=== PATIENT | male | born 1950 | race Caucasian/White ===

== ENCOUNTER → 2018-01-16 | Outpatient (CLI) | payer MEDICARE ==
--- NOTE | 2018-01-16 10:28 | Diagnostic Imaging Report ---
PROCEDURE:US RETROPERITONEAL ( KIDNEY ). COMPARISON:None. INDICATIONS:Asymptomatic Microscopic Hematuria TECHNIQUE: Gomez-scale and color sonographic images of the bilateral kidneys and bladder where obtained in transverse and longitudinal planes. FINDINGS: RIGHT KIDNEY: 13 cm in length, cortical thickness 2 cm. Cysts: 1.1 x 1.2 x 1.3 cm simple cyst in the lower pole. Solid masses: None Stones: None Hydronephrosis: None Echogenicity: Normal renal cortical echogenicity. LEFT KIDNEY: 13.2 cm in length, cortical thickness 2.2 cm. Cysts: None Solid masses: None Stones: Questionable echogenic calculus measuring 7 mm in the left interpolar collecting system. Hydronephrosis: None Echogenicity: Normal renal cortical echogenicity. Bladder: Unremarkable in sonographic appearance. Bilateral ureteral jets are identified. Prostate: 2.4 x 1.6 x 3.1 cm, estimated volume 6.3 cc CONCLUSION: Questionable echogenic calculus in the left renal collecting system without hydronephrosis. This may be further evaluated by CT scan of the abdomen and pelvis without contrast (renal stone protocol). Dictated by: Rashel Kurtz M.D. on 01/16/2018 at 10:28 Electronically approved by: Rashel Kurtz M.D. on 01/16/2018 at 10:28
== END ==
LOC: US 07:27
PROVIDERS: ATTEND Urology
DX: R31.9 Hematuria, unspecified (principal)
CPT/HCPCS: 76770

== ENCOUNTER → 2018-01-30 | Outpatient (CLI) | payer MEDICARE ==
[~2018-01-30] MED LIST: ALPRAZOLAM0.5 MG PO; AMIODARONE HCL200 MG PO; CEFUROXIME500 MG PO; CENTRUM SPECIA1 EACH PO; COLACE100 MG PO; FISH OIL 1,0001 EAC2 PO; FUROSEMIDE40 MG PO; HUMALOG100 UNIT/1 SC; LACTULOSE20 GM/30 M PO; LANTUS 3ML100 UNITS/ SC; LOSARTAN POTASS25 MG PO; MELATONIN5 M2 PO; MELOXICAM7.5 MG PO; METFORMIN HCL500 MG PO; METOPROLOL TART25 MG PO; OMEGA 3 FISH O1 EACH PO; OXYBUTYNIN CHLOR5 MG PO; PEPCID20 MG PO; PRAVASTATIN SOD20 MG PO; SODIUM BICARBO650 MG PO; SULFAMETHOXAZO1 EAC1 PO; TYLENOL WITH C1 EACH PO; VITAMIN B-121000 MCG PO; XARELTO10 MG PO; ZYRTEC10 M3 PO
--- NOTE | 2018-01-30 08:35 | Diagnostic Imaging Report ---
PROCEDURE:ABDOMEN-1VIEW (KUB) TECHNIQUE:Supine AP abdomen: 2 radiographs INDICATION:Microscopic hematuria COMPARISON:None. FINDINGS: No irregular calcifications. Normal bowel gas pattern. No evidence of organomegaly or ascites. Intact skeleton. CONCLUSION: No conspicuous etiology for microscopic hematuria. Dictated by: Harry Morales M.D. on 01/30/2018 at 8:36 Electronically approved by: Harry Morales M.D. on 01/30/2018 at 8:36
== END ==
LOC: RAD 07:10
PROVIDERS: ATTEND Urology
DX: R31.9 Hematuria, unspecified (principal)
CPT/HCPCS: 74018

== ENCOUNTER 2018-03-03 10:48 | Inpatient (IN) | payer MEDICARE ==
[~2018-03-03] VITALS: Ht 182.9 cm; Wt 121.2 kg
--- OUTSIDE RECORDS SUMMARY | 2018-03-03 10:51 | XMS REPORT ---
Author Author [facility] Address Unknown Phone Unavailable Care Team Providers Care Pecan Gatherer Name Role Phone HAYLIE SHEPHERD Unavailable Unavailable YUN SHEPHERD Unavailable Unavailable Problems This patient has no known problems. Allergies, Adverse Reactions, Alerts This patient has no known allergies or adverse reactions. Medications This patient has no known medications. Results Test Description Test Time Test Comments Text Results Atomic Results Result Comments ABDOMEN-1VIEW (KUB) [place] [address] Patient Name: DUSTIN GAUTHIER MR #: [id number] : 1950 Age/Sex: 67/M Req # : [id number] Adm Physician: Ordered by: HAYLIE SHEPHERD MD Report #: [id number] Location: [facility] Room/Bed: Procedure: [id number] DX/ABDOMEN-1VIEW (KUB) Exam Date: 01/30/18 Exam Time : 0730 REPORT STATUS: Signed PROCEDURE: ABDOMEN-1VIEW (KUB) TECHNIQUE: Supine AP abdomen: 2 radiographs INDICATION: Microscopic hematuria COMPARISON: None. FINDINGS: No irregular calcifications. Normal bowel gas pattern. No evidence of organomegaly or ascites. Intact skeleton. CONCLUSION: No conspicuous etiology for microscopic hematuria. Dictated by: Missy Morales M.D. on 01/30/2018 at 8:36 Electronically approved by: Missy Morales M.D. on 01/30/2018 at 8:36 Dictated By: MISSY MORALES MD 5 Transcribed By: SHAKIR on 01/30/18835 COPY TO: HAYLIE SHEPHERD MD US RENAL RETROPERITONEAL COMP [place] [address] Patient Name: DUSTIN GAUTHIER MR #: [id number] : 1950 Age/Sex: 67/M Req #: [id number] Adm Physician: Ordered by: YUN SHEPHERD MD Report #: [id number] Location: US Room/Bed: Procedure: [id number] US/US RENAL RETROPERITONEAL COMP Exam Date: Exam Time: REPORT STATUS: Signed PROCEDURE: US RETROPERITONEAL ( KIDNEY ). COMPARISON: None. INDICATIONS: Asymptomatic Microscopic Hematuria TECHNIQUE: Gomez-scale and color sonographic images of the bilateral kidneys and bladder where obtained in transverse and longitudinal planes. FINDINGS: RIGHT KIDNEY: 13 cm in length, cortical thickness 2 cm. Cysts: 1.1 x 1.2 x 1.3 cm simple cyst in the lower pole. Solid masses: None Stones: None Hydronephrosis: None Echogenicity : Normal renal cortical echogenicity. LEFT KIDNEY: 13.2 cm in length, cortical thickness 2.2 cm. Cysts: None Solid masses: None Stones: Questionable echogenic calculus measuring 7 mm in the left interpolar collecting system. Hydronephrosis: None Echogenicity: Normal renal cortical echogenicity. Bladder: Unremarkable in sonographic appearance. Bilateral ureteral jets are identified. Prostate: 2.4 x 1.6 x 3.1 cm, estimated volume 6.3 cc CONCLUSION: Questionable echogenic calculus in the left renal collecting system without hydronephrosis. This may be further evaluated by CT scan of the abdomen and pelvis without contrast (renal stone protocol). Dictated by: Donte Jeffery M.D. on 01/16/2018 at 10:28 Electronically approved by: Donte Jeffery M.D. on 01/16/2018 at 10:28 Dictated By: DONTE JEFFERY MD 1028 Transcribed By: SHAKIR on 01/16/18 1028 COPY TO: YUN SHEPHERD MD
[2018-03-03] MEDS ORDERED: LIDOCAINE JELLY 2% 10ML URO-JET TOP ONE (12:00)
[2018-03-03 13:23] LABS: BASOPHILS # (AUTO) 0.1 (0.0-0.1); BASOPHILS % 0.4 % (0.0-1.0); EOSINOPHILS # (AUTO) 0.2 (0.0-0.4); EOSINOPHILS % 1.7 % (0.0-6.0); HEMATOCRIT 30.9 % (38.2-49.6); HEMOGLOBIN 10.6 g/dL (14.0-18.0); LYMPHOCYTES # (AUTO) 1.4 (1.0-3.2); MEAN CORPUSCULAR HEMOGLOBIN 28.4 pg (28-32); MEAN CORPUSCULAR HGB CONC 34.3 g/dL (31-35); MEAN CORPUSCULAR VOLUME 82.8 fL (81-99); MONOCYTES # (AUTO) 1.5 (0.2-0.8); MONOCYTES % 11.6 % (4.4-11.3); NEUTROPHILS # (AUTO) 9.3 (2.1-6.9); NEUTROPHILS % 74.7 % (38.7-80.0); PLATELET COUNT 287 x10e3/uL (140-360); RED BLOOD COUNT 3.73 x10e6/uL (4.3-5.7); RED CELL DISTRIBUTION WIDTH 13.2 % (11.7-14.4)
[2018-03-03 13:33] LABS: INR 1.43; PROTHROMBIN TIME 16.4 seconds (11.9-14.5)
[2018-03-03 13:34] LABS: PARTIAL THROMBOPLASTIN TIME 37.1 seconds (23.8-35.5)
[2018-03-03 13:37] LABS: CLARITY,URINE OTHER (CLEAR); COLOR,URINE RED (YELLOW); LEUKOCYTE ESTERASE ,URINE NEGATIVE (NEGATIVE); NITRITE,URINE NEGATIVE (NEGATIVE); PROTEIN,URINE DIPSTICK 3+ (NEGATIVE)
[2018-03-03 13:38] LABS: BILIRUBIN,URINE NEGATIVE (NEGATIVE); KETONES,URINE NEGATIVE (NEGATIVE); RBC,URINE >50 /HPF (0-5); URINE UROBILINOGEN 0.2 mg/dL (0.2 - 1); WBC,URINE (MAN) 0-5 /HPF (0-5)
[2018-03-03 13:43] LABS: ALBUMIN 3.1 g/dL (3.5-5.0); ALBUMIN/GLOBULIN RATIO 0.8 (0.8-2.0); ANION GAP 29.9 mmol/L (8-16); CALCIUM 8.3 mg/dL (8.4-10.2); CREATININE, SERUM 19.09 mg/dL (0.72-1.25); POTASSIUM 7.9 mmol/L (3.5-5.1)
[2018-03-03] MEDS ORDERED: DEXTROSE 50% SYRINGE 50 ML IV ONE (14:19)
[2018-03-03] MEDS ORDERED: SODIUM CHLORIDE 0.9% 1000ML 1,000 ML IV SCH (14:30)
--- NOTE | 2018-03-03 14:43 | Diagnostic Imaging Report ---
EXAM: XR CHEST 2 VIEWS DATE: 03/03/2018 1:54 PM INDICATION: Shortness of breath, cough COMPARISON: None FINDINGS: Lines and Tubes: None Heart and Mediastinum: Accentuated by low lung volumes. Sternotomy wires. Lungs and Pleura: Patchy opacities lung bases. Bones and Soft Tissues: No acute findings. IMPRESSION: 1. Patchy basilar opacities could represent atelectasis, edema, or infectious process. Signed by: Dr. Gilbert Quintana MD on 03/03/2018 2:39 PM
[2018-03-03 14:46] LABS: ANION GAP 30.3 mmol/L (8-16); CALCIUM 8.2 mg/dL (8.4-10.2); CREATININE, SERUM 19.21 mg/dL (0.72-1.25)
[2018-03-03 14:49] LABS: POTASSIUM 8.3 mmol/L (3.5-5.1)
[2018-03-03] MEDS ORDERED: SODIUM BICARBONATE 8.4% INJ 50 ML SYR IV ONE ×2 (14:50→15:08)
[2018-03-03] MEDS ORDERED: SODIUM CHLORIDE 0.9% IV ONE ×2 (15:00→15:15)
[2018-03-03] MEDS ORDERED: SOD POLYSTYRENE SULFONATE SUSP 15 GM/60 ML BTL PO ONE (15:00)
[2018-03-03] MEDS ORDERED: CALCIUM GLUCONATE IV ONE (15:00)
[2018-03-03] MEDS ORDERED: INSULIN REGULAR, HUMAN 100 UNIT/1 ML 3ML VIAL IV ONE (15:00)
[2018-03-03] MEDS ORDERED: FUROSEMIDE INJ 10 MG/ML 10 ML VIAL IV ONE (15:15)
[2018-03-03] MEDS ORDERED: CALCIUM CHLORIDE IV ONE (15:15)
[2018-03-03] MEDS ORDERED: HEPARIN SOD (PORCINE) 1000 UNIT/ML SDV ONE ×2 (15:24→15:34)
[2018-03-03] MEDS ORDERED: SODIUM CHLORIDE 0.9% 1000ML 2,000 ML ONE (15:31)
[2018-03-03] MEDS ORDERED: FUROSEMIDE INJ 10 MG/ML 4 ML VIAL ONE (15:34)
[2018-03-03] MEDS ORDERED: FUROSEMIDE INJ 10 MG/ML 2 ML VIAL ONE (15:34)
[2018-03-03] MEDS ORDERED: LIDOCAINE HCL 1% LOCAL INJ 20 ML VIAL ONE (15:36)
[2018-03-03] MEDS ORDERED: MANNITOL 25% 12.5GM/50 ML VIAL IV ONE ×2 (16:45)
[2018-03-03] MEDS ORDERED: DEXTROSE 50% SYRINGE 50 ML IV PRN ×2 (17:30→18:15)
[2018-03-03] MEDS ORDERED: CEFTRIAXONE SOD 1 GM VIAL IM ONE (18:15)
[2018-03-03] MEDS: ALBUTEROL/IPRATROPIUM 3 ML NEB NEB SCH (19:00)
[2018-03-03] MEDS ORDERED: HEPARIN SOD (PORCINE) 1000 UNIT/ML 10ML MDV IV PRN (19:45)
[2018-03-03] MEDS ORDERED: HEPARIN SOD (PORCINE) 1000 UNIT/ML SDV IV ONE (20:00)
[2018-03-03] MEDS ORDERED: HEPARIN SOD (PORCINE) 1000 UNIT/ML SDV IV PRN (20:00)
[2018-03-03] MEDS ORDERED: CEFTRIAXONE SOD 1 GM VIAL IV ONE (20:45)
[2018-03-03] MEDS: DOXYCYCLINE HYCLATE TABLET 100 MG TAB PO SCH (20:56)
[2018-03-03] MEDS: INSULIN LISPRO 100 UNIT/1 ML 3ML VIAL SQ SCH (20:57)
--- NOTE | 2018-03-03 21:04 | Diagnostic Imaging Report ---
EXAM: Renal Ultrasound INDICATION: Bleeding from bladder, unable to urinate, remote history of prostate cancer and radiation COMPARISON: None TECHNIQUE: Transverse and longitudinal sonographic images of the kidneys and bladder were obtained. FINDINGS: RIGHT KIDNEY: 12.9 x 6.4 x 6.8 cm, normal cortical thickness. Echogenicity: Normal Hydronephrosis: None Calculi: None Cyst/Mass: Simple cyst measuring 2. 2 x 2 x 2.4 cm in the inferior pole LEFT KIDNEY: 13.8 x 7.6 x 6.7 cm, normal cortical thickness. Echogenicity: Normal Hydronephrosis: None Calculi: None Cyst/Mass: None BLADDER: The bladder is partially decompressed by Xiong catheter. There is heterogeneous avascular debris within the bladder, new from prior exam. IMPRESSION: 1. Normal sonographic appearance of the kidneys. 2. Heterogeneous avascular debris within the bladder most likely represents a blood clot. Follow-up ultrasound versus direct visualization is recommended to exclude underlying mass. Signed by: Dr. Monika Baez M.D. on 03/03/2018 9:01 PM
[2018-03-03 21:49] LABS: BASOPHILS # (AUTO) 0.1 (0.0-0.1); BASOPHILS % 0.6 % (0.0-1.0); EOSINOPHILS # (AUTO) 0.6 (0.0-0.4); EOSINOPHILS % 5.5 % (0.0-6.0); LYMPHOCYTES # (AUTO) 1.3 (1.0-3.2); LYMPHOCYTES % 12.4 % (18.0-39.1); MEAN CORPUSCULAR HEMOGLOBIN 27.9 pg (28-32); MEAN CORPUSCULAR HGB CONC 34.5 g/dL (31-35); MONOCYTES # (AUTO) 1.2 (0.2-0.8); MONOCYTES % 11.2 % (4.4-11.3); NEUTROPHILS # (AUTO) 7.3 (2.1-6.9); NEUTROPHILS % 69.9 % (38.7-80.0); PLATELET COUNT 266 x10e3/uL (140-360); RED BLOOD COUNT 3.58 x10e6/uL (4.3-5.7)
[2018-03-03 22:09] LABS: ALBUMIN 2.8 g/dL (3.5-5.0); ALBUMIN/GLOBULIN RATIO 0.8 (0.8-2.0); ANION GAP 25.5 mmol/L (8-16); CALCIUM 8.4 mg/dL (8.4-10.2); CREATININE, SERUM 13.72 mg/dL (0.72-1.25); POTASSIUM 4.5 mmol/L (3.5-5.1)
--- NOTE | 2018-03-03 23:44 | History and Physical ---
DATE OF CONSULTATION: March 03, 2018 PATIENT OF: Dr. Ankita Johnston, Dr. Rasmussen, Dr. Zapata, Dr. Reid Parker. 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 He has been followed by Dr. Rasmussen. He has been anuric for [address] Rasmussen this morning and was directed to the emergency room. He was found to be severely azotemic. A Xiong catheter was placed, clots were found in the bladder. He is essentially anuric. He has history of bypass surgery in the past, history of smoking, quit 15 years ago. 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 He is sedentary. MEDICATIONS: Include, 1. Lantus 20 mg. 2. Humalog insulin 4 injections a day. 3. Losartan 50. 4. Pravachol 20. 5. Metoprolol 25. 6. Meloxicam. 7. Pepcid. 8. Fish oil. 9. Aspirin. He told that he needed a prosthetic valve and possibly another coronary artery bypass. He is sedentary. PHYSICAL EXAMINATION VITAL SIGNS: Temperature 98.7, pulse 91, respirations 18, blood pressure 122/66. HEENT: Head is normocephalic, atraumatic. Eyes, extraocular movement intact. LUNGS: Clear. HEART: Regular rhythm. ABDOMEN: Nontender. EXTREMITIES: Trace edema. He was examined supine. He needs dialysis, ultrasound, cardiology opinion, opinion. Chest x-ray reveals sternal wires and a right lower lobe infiltrate. Potassium is critical at 8.3, bicarb is 13, BUN 120, creatinine 19.2. Calcium 10.8. White count is elevated. ASSESSMENT: Acute renal failure, possibly related to obstructive uropathy. PLAN: Ultrasound. Emergency dialysis. Consider empiric antibiotic in view of pulmonary infiltrates and elevated white count. Job#: [id number] [employer]
[2018-03-04] MEDS: ALBUTEROL/IPRATROPIUM 3 ML NEB NEB SCH ×4 (00:30→19:00)
[2018-03-04] MEDS ORDERED: SOD POLYSTYRENE SULFONATE SUSP 15 GM/60 ML BTL PO ONE (02:45)
[2018-03-04 06:56] LABS: BASOPHILS % 0.3 % (0.0-1.0); EOSINOPHILS # (AUTO) 0.5 (0.0-0.4); EOSINOPHILS % 5.1 % (0.0-6.0); HEMATOCRIT 27.4 % (38.2-49.6); HEMOGLOBIN 9.5 g/dL (14.0-18.0); LYMPHOCYTES # (AUTO) 0.8 (1.0-3.2); LYMPHOCYTES % 8.3 % (18.0-39.1); MEAN CORPUSCULAR HEMOGLOBIN 28.2 pg (28-32); MEAN CORPUSCULAR HGB CONC 34.7 g/dL (31-35); MEAN CORPUSCULAR VOLUME 81.3 fL (81-99); MONOCYTES % 10.5 % (4.4-11.3); NEUTROPHILS # (AUTO) 7.2 (2.1-6.9); NEUTROPHILS % 75.4 % (38.7-80.0); PLATELET COUNT 263 x10e3/uL (140-360); RED BLOOD COUNT 3.37 x10e6/uL (4.3-5.7); RED CELL DISTRIBUTION WIDTH 13.1 % (11.7-14.4)
[2018-03-04 07:16] LABS: ALBUMIN 2.7 g/dL (3.5-5.0); ALBUMIN/GLOBULIN RATIO 0.8 (0.8-2.0); CALCIUM 8.4 mg/dL (8.4-10.2); CREATININE, SERUM 15.68 mg/dL (0.72-1.25); MAGNESIUM 1.7 MG/DL (1.3-2.1); PHOSPHORUS 9.7 MG/DL (2.3-4.7)
[2018-03-04 07:26] LABS: INR 1.37; PARTIAL THROMBOPLASTIN TIME 35.5 seconds (23.8-35.5); PROTHROMBIN TIME 15.9 seconds (11.9-14.5)
[2018-03-04] MEDS: INSULIN LISPRO 100 UNIT/1 ML 3ML VIAL SQ SCH ×4 (08:00→21:00)
--- NOTE | 2018-03-04 09:46 | Diagnostic Imaging Report ---
PROCEDURE: CT ABDOMEN AND PELVIS WITHOUT CONTRAST TECHNIQUE: The abdomen and pelvis were scanned utilizing a multidetector helical scanner from the diaphragm to the lesser trochanter. No oral or intravenous contrast was administered per referring physician request. Coronal and sagittal multiplanar reformations were obtained. COMPARISON: Renal ultrasound 2017. INDICATIONS: HEMATURIA, PROSTATE CANCER, ACUTE RENAL FAILURE FINDINGS: ABSENCE OF INTRAVENOUS CONTRAST DECREASES SENSITIVITY FOR DETECTION OF FOCAL LESIONS AND VASCULAR PATHOLOGY. LOWER THORAX: Right anterior basal prominent extrapleural fat. Linear and reticular opacity in the dependent lower lobes compatible with atelectasis. Sternotomy wires partially visualized. No paracardial effusion.. HEPATOBILIARY: No focal hepatic lesion or intrahepatic biliary ductal dilatation. Multiple small radiopaque calculi within the dependent gallbladder. SPLEEN: No splenomegaly. PANCREAS: No focal masses or ductal dilatation. ADRENALS: 1.9 cm left adrenal nodule has average internal attenuation 0-5 Hounsfield units compatible with a lipid rich adenoma. No right adrenal nodule. KIDNEYS/URETERS: Mild bilateral hydronephrosis and hydroureter. 5 mm calculus in the distal right ureter seen on series 3 image 151. No left renal or ureteral calculus. Bilateral perinephric fat stranding. Right upper pole renal cyst, average internal attenuation 15-20 Hounsfield units. Exophytic subcentimeter hypoattenuating lesion projecting from the lower pole of the right kidney is too small to further characterize but likely represents an additional small cyst. Lobulated bilateral renal contours may be congenital or related to prior infectious or inflammatory insult. PELVIC ORGANS/BLADDER: Xiong catheter within the urinary bladder. The urinary bladder lumen is diffusely filled with hyperattenuating material (50-60 Hounsfield units), along with foci of gas in the nondependent portion. Mild perivesicular inflammation. PERITONEUM / RETROPERITONEUM: No ascites. No pneumoperitoneum. LYMPH NODES: No pelvic sidewall, retroperitoneal, or mesenteric lymphadenopathy. VESSELS: Limited evaluation without intravenous contrast. The abdominal aorta is non-aneurysmal. Scattered atherosclerotic calcifications. Right femoral central venous catheter tip terminates in the external iliac vein. GI TRACT: The large bowel is notable for innumerable sigmoid and descending colon diverticula without wall thickening or adjacent inflammatory change. The appendix is normal. No small bowel dilatation to suggest obstruction. Small diverticulum projects from the second portion of the duodenum. BONES AND SOFT TISSUES: No focal soft tissue abnormalities. Partially visualized median sternotomy wires. No osseous destructive lesions. IMPRESSION: Large amount of hyperdense material within the urinary bladder likely represents blood clot in the setting of gross hematuria. Correlate for recent instrumentation, and direct visualization may be of benefit. Xiong catheter is appropriately positioned. Mild bilateral hydroureteronephrosis with a 5 mm distal right ureteral calculus. Benign left adrenal lipid rich adenoma. Cholelithiasis without pericholecystic inflammation. Large bowel diverticulosis without findings of acute diverticulitis. Dictated by: Rashel Kurtz M.D. on 03/04/2018 at 9:48 Electronically approved by: Rashel Kurtz M.D. on 03/04/2018 at 9:48
[2018-03-04] MEDS: DOXYCYCLINE HYCLATE TABLET 100 MG TAB PO SCH ×2 (09:58→16:58)
[2018-03-04] MEDS ORDERED: FISH OIL 1,0001 EAC2 PO (11:04)
[2018-03-04] MEDS ORDERED: LOSARTAN POTASS25 MG PO (11:04)
[2018-03-04] MEDS ORDERED: ZYRTEC10 M3 PO (11:04)
[2018-03-04] MEDS ORDERED: MELOXICAM7.5 MG PO (11:04)
[2018-03-04] MEDS ORDERED: METOPROLOL TART25 MG PO (11:04)
[2018-03-04] MEDS ORDERED: OMEGA 3 FISH O1 EACH PO (11:04)
[2018-03-04] MEDS ORDERED: METFORMIN HCL500 MG PO (11:04)
[2018-03-04] MEDS ORDERED: VITAMIN B-121000 MCG PO (11:04)
[2018-03-04] MEDS ORDERED: PEPCID20 MG PO (11:04)
[2018-03-04] MEDS ORDERED: LANTUS 3ML100 UNITS/ SC (11:04)
[2018-03-04] MEDS ORDERED: PRAVASTATIN SOD20 MG PO (11:04)
[2018-03-04] MEDS ORDERED: HUMALOG100 UNIT/1 SC (11:04)
--- NOTE | 2018-03-04 13:21 | Consultation ---
DATE OF CONSULTATION: March 04, 2018 CARDIOLOGY CONSULTATION ATTENDING PHYSICIAN: Dr. Rashel Freitas Mr. Antunez is a pleasant, 67-year-old man known to our service for many years. Followed by Dr. Parker with problems with coronary disease and aortic stenosis. CHIEF COMPLAINT: He presents to emergency room on the with a complaint of hematuria and anuria. He reports that he has not urinated in 3 days. PAST MEDICAL HISTORY: Significant for prostate surgery in 2003 treated with proton beam at [facility]. He reports that he had some problems with hematuria in 2017 and was seen by Dr. Anselmo Rasmussen who did evidently fulguration in the bladder with some initial improvement. But the bleeding returned recently. PAST SURGICAL HISTORY: Significant for coronary artery bypass graft surgery. He had free internal mammary artery to the right coronary. He also had a coronary stent placed in December 2014 in the ramus vessel. He denies any chest pain since that time. He is known to have aortic stenosis with echocardiogram in 2017 suggesting a gradient of about 40 mmHg and normal ejection fraction. HOME MEDICATIONS: Have been vitamin B12, metformin 500 mg, metoprolol 25 mg, Pepcid, pravastatin 20 mg daily, losartan 50 mg daily. PERSONAL AND SOCIAL HISTORY: He does not smoke or drink, and he is retired now. FAMILY HISTORY: Father of bladder cancer. Mother has a pacemaker. PHYSICAL EXAMINATION GENERAL: Exam at this time shows a pleasant, alert man who is awake and comfortable. VITALS: Blood pressure 140/70. HEAD, EYES, EARS, NOSE AND THROAT: Unremarkable. NECK: No jugular venous distention. THORAX: Healed midline sternotomy. HEART: Sounds S1 and S2 are reduced. There is a 2/6 systolic murmur. LUNGS: Relatively clear. ABDOMEN: Protuberant. Normal bowel sounds. EXTREMITIES: No cyanosis, clubbing or edema. : He has a Xiong catheter with red bloody urine. LABS: Chemistry shows sodium 140, potassium 6.0, glucose 92, BUN 88, creatinine 15.6. Hemoglobin 10.6. Platelets 287,000. ASSESSMENT 1. Acute renal failure. 2. Coronary disease clinically stable after coronary bypass graft surgery and stenting. 3. Hematuria. 4. Moderate aortic stenosis. PLAN: Cardiac status clinically stable at this time for his dialysis. Will recheck echocardiogram to reassess the extent of aortic stenosis. Thank you for asking us to see him in consultation. Job#: [id number] cc:MD TERESITA BOB MD MING JEANG, MD
[2018-03-04 14:48] LABS: FREE T4 (FREE THYROXINE) 1.09 ng/dL (0.9-1.8); THYROID STIMULATING HORMONE 1.129 uIU/mL (0.350-4.940)
[2018-03-04 14:54] VITALS: BP 115/68
[2018-03-04 15:00] VITALS: BP 115/68
--- NOTE | 2018-03-04 15:20 | Consultation ---
DATE OF CONSULTATION: March 04, 2018 ENDOCRINE CONSULTATION ATTENDING PHYSICIAN: Dr. Freitas. Thank you very much for referring this patient. This is a 67-year-old white male gentleman who is very well known to me from his previous hospital admissions and followups. Patient came to the hospital this time with history of hematuria. On further evaluation, the patient was found to be in acute renal failure. Patient is a known diabetic for 15-plus years. Has multiple complications related to diabetes including severe diabetic sensorimotor neuropathy. This time, the patient started with hematuria. He had some bladder procedure done. He reported back with significantly high creatinine around 15.68. He was also found to be anemic. Patient has multiple other medical problems including history of coronary artery disease, status post CABG, status post stent placement, hypertension, hyperlipidemia. He is on multiple other medications for hypertension. PHYSICAL EXAMINATION GENERAL: Today, the patient is alert, awake, a little bit apprehensive. VITALS: Heart rate is around 78. Blood pressure 140/80. HEENT: Essentially unremarkable. Thyroid is palpable. Clinically he is near euthyroid. CHEST: Bilateral vesicular breathing. Has mild bronchospasm. CARDIOVASCULAR: First and 2nd heart sounds. There is no 3rd or 4th heart sound. Ejection systolic murmur grade 2/6. EXTREMITIES: Patient has evidence of diabetic sensory neuropathy in both lower extremities. CLINICAL IMPRESSION 1. Diabetes mellitus type 2, uncontrolled with complications. 2. Obstructive uropathy. 3. Rotov-an-xbnvcty renal failure. 4. Hypertension. 5. Hyperlipidemia. 6. Coronary artery disease, status post coronary artery bypass graft. PLAN: The plan at this time is to do hemoglobin A1c and thyroid function test. Monitor his blood sugars closely and put him on a sliding-scale insulin until we get some more information. Patient already had dialysis done 1 time. Thanks for referring this patient. I will follow this patient with you. Job#: [id number]
[2018-03-04 16:22] VITALS: BP 124/69
[2018-03-04] MEDS ORDERED: VANCOMYCIN 1GM/NS 250 ML 250 ML IV ONE ×2 (17:45→22:15)
[2018-03-04] MEDS: CEFTRIAXONE SOD 1 GM VIAL IV SCH (18:38)
[2018-03-04] MEDS: SODIUM CHLORIDE 0.9% 1000ML 1,000 ML IV SCH (18:38)
[2018-03-04 20:00] VITALS: BP 1/69
[2018-03-04] MEDS ORDERED: HEPARIN SOD (PORCINE) 1000 UNIT/ML SDV IV PRN (20:30)
[2018-03-04] MEDS ORDERED: DIGOXIN INJ 0.25 MG/ML 2 ML AMP IV NR (21:00)
[2018-03-04 21:13] VITALS: BP 150/69
[2018-03-04] MEDS: LORAZEPAM 0.5 MG TAB PO PRN (22:11)
[2018-03-04 23:36] VITALS: BP 136/73
[2018-03-05] VITALS (7 sets, daily range): BP systolic 100–117; BP diastolic 61–79
[2018-03-05] MEDS: ALBUTEROL/IPRATROPIUM 3 ML NEB NEB SCH ×2 (01:00→07:00)
[2018-03-05] MEDS: SODIUM CHLORIDE 0.9% 1000ML 1,000 ML IV SCH ×2 (05:28→13:45)
[2018-03-05] MEDS: CEFTRIAXONE SOD 1 GM VIAL IV SCH ×2 (05:28→17:55)
[2018-03-05 06:18] LABS: BASOPHILS % 0.4 % (0.0-1.0); EOSINOPHILS # (AUTO) 0.8 (0.0-0.4); EOSINOPHILS % 7.3 % (0.0-6.0); HEMATOCRIT 24.4 % (38.2-49.6); HEMOGLOBIN 8.3 g/dL (14.0-18.0); LYMPHOCYTES # (AUTO) 1.1 (1.0-3.2); LYMPHOCYTES % 10.4 % (18.0-39.1); MEAN CORPUSCULAR HEMOGLOBIN 28.2 pg (28-32); MONOCYTES # (AUTO) 1.4 (0.2-0.8); MONOCYTES % 12.8 % (4.4-11.3); NEUTROPHILS # (AUTO) 7.4 (2.1-6.9); NEUTROPHILS % 68.7 % (38.7-80.0); PLATELET COUNT 225 x10e3/uL (140-360); RED BLOOD COUNT 2.94 x10e6/uL (4.3-5.7); RED CELL DISTRIBUTION WIDTH 13.3 % (11.7-14.4)
[2018-03-05 06:49] LABS: ALBUMIN 2.5 g/dL (3.5-5.0); ALBUMIN/GLOBULIN RATIO 0.8 (0.8-2.0); ANION GAP 23.2 mmol/L (8-16); CALCIUM 7.4 mg/dL (8.4-10.2); CREATININE, SERUM 13.93 mg/dL (0.72-1.25); MAGNESIUM 1.5 MG/DL (1.3-2.1); PHOSPHORUS 9.6 MG/DL (2.3-4.7); POTASSIUM 5.2 mmol/L (3.5-5.1)
[2018-03-05] MEDS: INSULIN LISPRO 100 UNIT/1 ML 3ML VIAL SQ SCH ×4 (07:30→21:00)
[2018-03-05] MEDS ORDERED: METOPROLOL SUCCINATE 25 MG TAB XL PO SCH (09:00)
[2018-03-05 10:20] LABS: FREE THYROXINE INDEX 1.6968 (1.4-3.8); THYROID STIMULATING HORMONE 1.269 uIU/mL (0.350-4.940)
[2018-03-05] MEDS: PROPAFENONE HCL 150 MG TAB PO SCH ×2 (10:53→17:30)
[2018-03-05] MEDS ORDERED: FUROSEMIDE INJ 10 MG/ML 4 ML VIAL IV STA (11:16)
[2018-03-05 12:30] LABS: CREATINE KINASE MB 20.2 ng/mL (0-5.0)
--- NOTE | 2018-03-05 19:04 | Diagnostic Imaging Report ---
EXAM: VENTILATION PERFUSION LUNG SCAN INDICATION: 58 M with acute onset SOB; blood clots in urinary tract. COMPARISON: Chest radiograph 03/03/2018 DISCUSSION: Xenon-133 gas 11.5 mCi was administered via inhalation. Dynamic images of the lungs in the posterior projection were obtained through single breath and washout phases. Distribution of tracer activity Is irregular throughout the lungs. Washout is diffusely delayed with diffuse air trapping. Perfusion images of the lungs in multiple projections were obtained following intravenous administration of 5.5 mCi of Tc-99m MAA. Distribution of tracer is irregular throughout the lungs. There are no segmental perfusion defects of any size. The perfusion images are well matched to the ventilation images. The contours of the lungs are well demarcated. The cardiac silhouette is normal. IMPRESSION: 1. Scan findings represent a LOW probability for acute pulmonary embolic disease based on the PIOPED II criteria. 2. Scan findings are compatible with diffuse parenchymal and/or obstructive lung disease. Signed by: Dr. Amanda Sexton M.D. on 03/05/2018 7:00 PM
[2018-03-05] MEDS ORDERED: SODIUM CHLORIDE 0.9% 500ML 500 ML ONE (19:10)
[2018-03-05] MEDS ORDERED: LIDOCAINE HCL 2% LOCAL 20 ML VIAL ONE (19:10)
[2018-03-05] MEDS ORDERED: HEPARIN SOD (PORCINE) 1000 UNIT/ML 30ML ONE (19:31)
[2018-03-05] MEDS ORDERED: MIDAZOLAM HCL 2 MG/2 ML VIAL ONE (19:36)
[2018-03-05] MEDS ORDERED: FENTANYL CITRATE/PF 100MCG/2 ML INJ ONE (19:36)
[2018-03-05] MEDS: ALPRAZOLAM 0.25 MG TAB PO PRN (21:08)
[2018-03-05] MEDS: IPRATROPIUM BROMIDE 0.02% 2.5 ML NEB NEB SCH (21:10)
--- NOTE | 2018-03-05 23:18 | Diagnostic Imaging Report ---
CHEST SINGLE (PORTABLE), 03/05/2018 10:26 PM Technique: CHEST SINGLE (PORTABLE) Comparison: 03/03/2018 Clinical history: Placement of dialysis catheter Findings: See Impression Impression: 1. Lines/Tubes: Placement of right-sided tunneled dialysis catheter overlying the cavoatrial junction/high right atrium. 2. Stable mildly enlarged cardiomediastinal silhouette status post sternotomy. 3. Bilateral pulmonary opacities, favor edema with layering pleural fluid. 4. No pneumothorax. Signed by: Dr Beverley Carpenter MD on 03/05/2018 11:14 PM
[2018-03-06] VITALS (29 sets, daily range): BP systolic 86–149; BP diastolic 37–108
[2018-03-06] MEDS ORDERED: SODIUM CHLORIDE 0.9% 1000ML 2,000 ML ONE (01:27)
[2018-03-06] MEDS: CEFTRIAXONE SOD 1 GM VIAL IV SCH ×2 (06:00→18:00)
[2018-03-06 06:16] LABS: BASOPHILS % 0.3 % (0.0-1.0); EOSINOPHILS # (AUTO) 0.9 (0.0-0.4); EOSINOPHILS % 8.1 % (0.0-6.0); HEMATOCRIT 25.3 % (38.2-49.6); HEMOGLOBIN 8.6 g/dL (14.0-18.0); LYMPHOCYTES # (AUTO) 1.1 (1.0-3.2); LYMPHOCYTES % 9.9 % (18.0-39.1); MEAN CORPUSCULAR HEMOGLOBIN 28.6 pg (28-32); MEAN CORPUSCULAR VOLUME 84.1 fL (81-99); MONOCYTES # (AUTO) 1.1 (0.2-0.8); MONOCYTES % 9.6 % (4.4-11.3); NEUTROPHILS % 71.4 % (38.7-80.0); PLATELET COUNT 232 x10e3/uL (140-360); RED BLOOD COUNT 3.01 x10e6/uL (4.3-5.7); RED CELL DISTRIBUTION WIDTH 13.3 % (11.7-14.4)
[2018-03-06 06:37] LABS: ALBUMIN 2.4 g/dL (3.5-5.0); ALBUMIN/GLOBULIN RATIO 0.7 (0.8-2.0); ANION GAP 21.8 mmol/L (8-16); CALCIUM 7.7 mg/dL (8.4-10.2); CREATININE, SERUM 13.03 mg/dL (0.72-1.25); MAGNESIUM 1.7 MG/DL (1.3-2.1); POTASSIUM 4.8 mmol/L (3.5-5.1)
[2018-03-06] MEDS: IPRATROPIUM BROMIDE 0.02% 2.5 ML NEB NEB SCH ×3 (07:00→21:21)
[2018-03-06] MEDS: INSULIN LISPRO 100 UNIT/1 ML 3ML VIAL SQ SCH ×4 (07:30→21:00)
[2018-03-06] MEDS: PROPAFENONE HCL 150 MG TAB PO SCH ×2 (09:58→17:00)
--- NOTE | 2018-03-06 18:55 | Progress Note ---
DATE: March 06, 2018 SERVICE: Urology. PRESENT ILLNESS: This is a 67-year-old patient who was admitted to the hospital with gross hematuria and acute urinary retention. He did have drtwg-bd-rfeerdn renal failure with creatinine about 20. He has been dialyzed twice, will be dialyzed today. PAST MEDICAL HISTORY: Significant for adenocarcinoma of prostate about 15 years ago. He did undergo radiation therapy. PHYSICAL EXAMINATION GENERAL: The patient is alert and oriented x3. VITAL SIGNS: Afebrile. CHEST: Clear. ABDOMEN: Soft. No suprapubic fullness. Three-way Xiong catheter 24-Kinyarwanda is in place. GENITALIA: Unremarkable. LOWER EXTREMITIES: Moves all. LABORATORY DATA: Reviewed. IMPRESSION 1. Urinary retention. 2. Gross hematuria. 3. Bkhlc-qg-jiuvekt renal failure. 4. Carcinoma of the prostate. 5. Left adrenal adenoma. 6. Mild bilateral hydronephrosis. PLAN: Recommend to continue the irrigation and on and off, manual irrigation if needed to clear for many clots. In future he will need diagnostic cystoscopy as well. Job#: [id number] [employer]
[2018-03-07 05:07] VITALS: BP 142/74
[2018-03-07] MEDS: IPRATROPIUM BROMIDE 0.02% 2.5 ML NEB NEB SCH ×3 (07:00→19:10)
[2018-03-07 07:15] VITALS: BP 134/75
[2018-03-07] MEDS: INSULIN LISPRO 100 UNIT/1 ML 3ML VIAL SQ SCH ×4 (07:30→21:00)
[2018-03-07] MEDS: PROPAFENONE HCL 150 MG TAB PO SCH ×2 (08:15→18:02)
[2018-03-07] MEDS: CEFTRIAXONE SOD 1 GM VIAL IV SCH ×2 (08:15→18:02)
[2018-03-07 08:18] LABS: BASOPHILS % 0.2 % (0.0-1.0); EOSINOPHILS # (AUTO) 1.2 (0.0-0.4); EOSINOPHILS % 9.2 % (0.0-6.0); HEMATOCRIT 26.5 % (38.2-49.6); HEMOGLOBIN 8.7 g/dL (14.0-18.0); LYMPHOCYTES # (AUTO) 1.2 (1.0-3.2); LYMPHOCYTES % 9.6 % (18.0-39.1); MEAN CORPUSCULAR HEMOGLOBIN 28.3 pg (28-32); MEAN CORPUSCULAR HGB CONC 32.8 g/dL (31-35); MEAN CORPUSCULAR VOLUME 86.3 fL (81-99); MONOCYTES # (AUTO) 1.4 (0.2-0.8); MONOCYTES % 10.9 % (4.4-11.3); NEUTROPHILS # (AUTO) 8.7 (2.1-6.9); NEUTROPHILS % 69.1 % (38.7-80.0); PLATELET COUNT 222 x10e3/uL (140-360); RED BLOOD COUNT 3.07 x10e6/uL (4.3-5.7); RED CELL DISTRIBUTION WIDTH 13.2 % (11.7-14.4)
[2018-03-07 08:39] LABS: ANION GAP 22.4 mmol/L (8-16); CALCIUM 7.8 mg/dL (8.4-10.2); CREATININE, SERUM 13.56 mg/dL (0.72-1.25); POTASSIUM 5.4 mmol/L (3.5-5.1)
[2018-03-07] MEDS ORDERED: SODIUM CHLORIDE 0.9% 1000ML 2,000 ML ONE (10:32)
[2018-03-07] MEDS: METOPROLOL TARTRATE 25 MG TAB PO SCH ×2 (10:34→18:02)
[2018-03-07 11:28] VITALS: BP 145/82
[2018-03-07 16:15] VITALS: BP 143/85
[2018-03-07 20:00] VITALS: BP 124/93
[2018-03-07 21:00] VITALS: BP 124/93
[2018-03-08 04:00] VITALS: BP 142/86
[2018-03-08] MEDS: CEFTRIAXONE SOD 1 GM VIAL IV SCH ×2 (06:00→17:58)
[2018-03-08 06:40] LABS: BASOPHILS % 0.3 % (0.0-1.0); EOSINOPHILS % 8.4 % (0.0-6.0); HEMATOCRIT 27.4 % (38.2-49.6); HEMOGLOBIN 8.9 g/dL (14.0-18.0); LYMPHOCYTES # (AUTO) 1.2 (1.0-3.2); LYMPHOCYTES % 10.3 % (18.0-39.1); MEAN CORPUSCULAR HEMOGLOBIN 27.8 pg (28-32); MEAN CORPUSCULAR HGB CONC 32.5 g/dL (31-35); MEAN CORPUSCULAR VOLUME 85.6 fL (81-99); MONOCYTES # (AUTO) 1.2 (0.2-0.8); NEUTROPHILS # (AUTO) 8.1 (2.1-6.9); NEUTROPHILS % 70.4 % (38.7-80.0); PLATELET COUNT 223 x10e3/uL (140-360)
[2018-03-08] MEDS: IPRATROPIUM BROMIDE 0.02% 2.5 ML NEB NEB SCH ×2 (07:00→15:00)
[2018-03-08 07:05] LABS: ANION GAP 17.6 mmol/L (8-16); CREATININE, SERUM 9.19 mg/dL (0.72-1.25); POTASSIUM 4.6 mmol/L (3.5-5.1)
[2018-03-08] MEDS: INSULIN LISPRO 100 UNIT/1 ML 3ML VIAL SQ SCH ×4 (07:30→21:00)
[2018-03-08 07:44] VITALS: BP 133/82
[2018-03-08 07:45] VITALS: BP 133/82
[2018-03-08] MEDS: PROPAFENONE HCL 150 MG TAB PO SCH ×2 (08:39→17:58)
[2018-03-08] MEDS: METOPROLOL TARTRATE 25 MG TAB PO SCH ×2 (08:39→17:57)
[2018-03-08 11:45] VITALS: BP 148/75
--- NOTE | 2018-03-08 12:07 | Diagnostic Imaging Report ---
PROCEDURE:TUNNELED DIALYSIS CATHETER COMPARISON:None. INDICATIONS: Renal failure. COMPLICATIONS: None. MEDICATIONS: Fentanyl 50 cc IV. BLOOD LOSS: Less than 2 cc. PROCEDURE: The patient was placed supine on the angiography table. Focused ultrasound evaluation demonstrated patent and compressible right internal jugular vein. The right neck and upper chest were prepped and draped in the usual sterile fashion. Utilizing direct sonographic guidance, the right internal jugular vein was cannulated with a 21 gauge needle. A 0.018 inch wire was advanced centrally. An access sheath was placed over the wire to secure the vascular access. The wire was upsized to a 0.035 wire. The wire was advanced into the inferior vena cava utilizing fluoroscopy. Attention was directed toward the creation of a subcutaneous tunnel. 1% lidocaine was infused into the upper right chest wall. Skin incision was made with a #11 blade. The catheter was tunneled through the subcutaneous tissues of the upper chest wall and out the venous access site. Dilations were performed over the wire. A peel-away sheath was placed over the wire. The stylette and wire were removed. The catheter tip was placed within the peel-away sheath. The peel-away sheath was removed. The catheter tip was positioned within the right atrium with fluoroscopic guidance. The ports demonstrated proper function with aspiration and flush of sterile saline. The catheter ports were flushed with sterile saline. The catheter was secured to skin with 3-0 Ethilon suture. The venous access site was closed with Dermabond. Sterile dressings were applied. The patient tolerated the procedure well. There were no immediate complications. The patient is transferred to the post procedure area in stable unchanged condition for further monitoring. CONCLUSION: Successful placement of a right internal jugular tunneled central venous catheter utilizing ultrasound and fluoroscopic guidance. Dictated by: Ubaldo Perez M.D. on 03/08/2018 at 12:08 Electronically approved by: Ubaldo Perez M.D. on 03/08/2018 at 12:08
[2018-03-08] MEDS ORDERED: SODIUM CHLORIDE 0.9% 1000ML 2,000 ML IV PRN (13:30)
[2018-03-08] MEDS ORDERED: HEPARIN SOD (PORCINE) 1000 UNIT/ML SDV IV PRN (13:30)
[2018-03-08 17:58] VITALS: BP 147/96
[2018-03-08 20:30] VITALS: BP 156/97
[2018-03-08] MEDS ORDERED: CALAMINE LOTION 4 OZ BOTTLE TP PRN (21:30)
[2018-03-09] VITALS (9 sets, daily range): BP systolic 142–170; BP diastolic 69–98
[2018-03-09] MEDS: CEFTRIAXONE SOD 1 GM VIAL IV SCH ×2 (05:59→17:55)
[2018-03-09] MEDS: IPRATROPIUM BROMIDE 0.02% 2.5 ML NEB NEB SCH ×3 (07:00→23:00)
[2018-03-09] MEDS: INSULIN LISPRO 100 UNIT/1 ML 3ML VIAL SQ SCH ×4 (07:30→20:18)
[2018-03-09] MEDS: PROPAFENONE HCL 150 MG TAB PO SCH (10:55)
[2018-03-09] MEDS: METOPROLOL TARTRATE 25 MG TAB PO SCH ×2 (10:56→18:04)
[2018-03-09 10:57] LABS: BASOPHILS # (AUTO) 0.1 (0.0-0.1); BASOPHILS % 0.4 % (0.0-1.0); EOSINOPHILS # (AUTO) 0.8 (0.0-0.4); EOSINOPHILS % 5.8 % (0.0-6.0); HEMATOCRIT 25.6 % (38.2-49.6); HEMOGLOBIN 8.3 g/dL (14.0-18.0); LYMPHOCYTES # (AUTO) 1.2 (1.0-3.2); LYMPHOCYTES % 9.1 % (18.0-39.1); MEAN CORPUSCULAR HEMOGLOBIN 28.1 pg (28-32); MEAN CORPUSCULAR HGB CONC 32.4 g/dL (31-35); MEAN CORPUSCULAR VOLUME 86.8 fL (81-99); MONOCYTES # (AUTO) 1.2 (0.2-0.8); MONOCYTES % 9.3 % (4.4-11.3); NEUTROPHILS % 74.6 % (38.7-80.0); PLATELET COUNT 192 x10e3/uL (140-360); RED BLOOD COUNT 2.95 x10e6/uL (4.3-5.7); RED CELL DISTRIBUTION WIDTH 13.1 % (11.7-14.4)
[2018-03-09] MEDS: ALPRAZOLAM 0.25 MG TAB PO PRN (11:00)
[2018-03-09 11:13] LABS: ANION GAP 16.4 mmol/L (8-16); CREATININE, SERUM 8.38 mg/dL (0.72-1.25); POTASSIUM 4.4 mmol/L (3.5-5.1)
[2018-03-09] MEDS: ACETAMINOPHEN 325 MG TAB PO PRN ×2 (12:38→20:26)
[2018-03-09 13:29] LABS: INR 1.29; PROTHROMBIN TIME 15.1 seconds (11.9-14.5)
[2018-03-09 13:30] LABS: PARTIAL THROMBOPLASTIN TIME 37.9 seconds (23.8-35.5)
[2018-03-09] MEDS: AMIODARONE HCL 200 MG TAB PO SCH ×2 (14:08→23:30)
[2018-03-10] VITALS: BP_SYST 121; BP_SYST 151; BP_DIAS 71; BP_DIAS 81
[2018-03-10 03:52] VITALS: BP 121/71
[2018-03-10 03:55] VITALS: BP 121/71
[2018-03-10 04:50] VITALS: BP 121/71
[2018-03-10] MEDS: ACETAMINOPHEN/CODEINE 300MG - 30MG TAB PO PRN ×3 (05:24→20:57)
[2018-03-10] MEDS: AMIODARONE HCL 200 MG TAB PO SCH ×2 (05:29→14:07)
[2018-03-10] MEDS: CEFTRIAXONE SOD 1 GM VIAL IV SCH (05:29)
--- NOTE | 2018-03-10 06:22 | Diagnostic Imaging Report ---
CHEST 2 VIEWS, 03/10/2018 9:00 AM Technique: CHEST 2 VIEWS Comparison: 03/05/2018 Clinical history: Follow-up fluid Findings: See Impression Impression: 1. Lines/Tubes: Stable right-sided tunneled dialysis catheter overlying the cavoatrial junction/high right atrium. 2. Stable cardiomediastinal silhouette status post sternotomy. 3. Improved edema. Mild bibasilar vascular crowding/atelectasis. 4. No significant effusion. Signed by: Dr Beverley Carpenter MD on 03/10/2018 6:18 AM
[2018-03-10] MEDS: IPRATROPIUM BROMIDE 0.02% 2.5 ML NEB NEB SCH ×3 (07:00→23:05)
[2018-03-10] MEDS: INSULIN LISPRO 100 UNIT/1 ML 3ML VIAL SQ SCH ×4 (07:30→21:00)
[2018-03-10] MEDS: ALPRAZOLAM 0.25 MG TAB PO PRN ×2 (07:50→18:30)
[2018-03-10 09:00] VITALS: BP 121/71
[2018-03-10 09:23] LABS: BASOPHILS # (AUTO) 0.1 (0.0-0.1); BASOPHILS % 0.3 % (0.0-1.0); EOSINOPHILS # (AUTO) 0.9 (0.0-0.4); EOSINOPHILS % 3.8 % (0.0-6.0); HEMATOCRIT 27.5 % (38.2-49.6); HEMOGLOBIN 8.5 g/dL (14.0-18.0); LYMPHOCYTES # (AUTO) 2.5 (1.0-3.2); LYMPHOCYTES % 10.7 % (18.0-39.1); MEAN CORPUSCULAR HEMOGLOBIN 28.1 pg (28-32); MEAN CORPUSCULAR HGB CONC 30.9 g/dL (31-35); MEAN CORPUSCULAR VOLUME 90.8 fL (81-99); MONOCYTES # (AUTO) 1.9 (0.2-0.8); MONOCYTES % 8.4 % (4.4-11.3); NEUTROPHILS # (AUTO) 17.6 (2.1-6.9); PLATELET COUNT 219 x10e3/uL (140-360); RED BLOOD COUNT 3.03 x10e6/uL (4.3-5.7); RED CELL DISTRIBUTION WIDTH 13.2 % (11.7-14.4)
[2018-03-10 09:40] LABS: ANION GAP 22.9 mmol/L (8-16); CALCIUM 8.1 mg/dL (8.4-10.2); CREATININE, SERUM 10.65 mg/dL (0.72-1.25); POTASSIUM 4.9 mmol/L (3.5-5.1)
[2018-03-10] MEDS ORDERED: BELLADONNA/OPIUM 60 MG SUPP PR NR (10:30)
[2018-03-10] MEDS: METOPROLOL TARTRATE 25 MG TAB PO SCH ×2 (11:00→17:00)
[2018-03-10 11:29] LABS: EOSINOPHILS % (MANUAL) 2 % (0-7); LYMPHOCYTES % (MANUAL) 9 % (19-48); MONOCYTES % (MANUAL) 3 % (3.4-9.0); NEUTROPHILS % (MANUAL) 86 % (40-74); PLATELET ESTIMATE ADEQUATE; PLATELET MORPHOLOGY COMMENT NORMAL; RBC MORPHOLOGY COMMENT NORMAL
[2018-03-10] MEDS: LORAZEPAM 0.5 MG TAB PO PRN (14:05)
[2018-03-10] MEDS ORDERED: CALCIUM ACETATE 667 MG GELCAP PO SCH (15:00)
[2018-03-10] MEDS ORDERED: DIATRIZOATE MEGL/DIATRIZOA SOD 30 ML BTL PO ONE (18:49)
[2018-03-10 19:31] LABS: HEMATOCRIT 25.5 % (38.2-49.6); HEMOGLOBIN 8.4 g/dL (14.0-18.0); MEAN CORPUSCULAR HEMOGLOBIN 28.3 pg (28-32); MEAN CORPUSCULAR HGB CONC 32.9 g/dL (31-35); MEAN CORPUSCULAR VOLUME 85.9 fL (81-99); PLATELET COUNT 208 x10e3/uL (140-360); RED BLOOD COUNT 2.97 x10e6/uL (4.3-5.7); RED CELL DISTRIBUTION WIDTH 13.3 % (11.7-14.4)
[2018-03-10 19:52] LABS: AMYLASE 27 U/L (25-125); LIPASE 8 U/L (8-78)
[2018-03-10 20:05] LABS: ALBUMIN 2.5 g/dL (3.5-5.0); BILIRUBIN,DIRECT 0.1 mg/dL (0.0-0.5)
[2018-03-10 20:28] LABS: LYMPHOCYTES % (MANUAL) 11 % (19-48); MONOCYTES % (MANUAL) 6 % (3.4-9.0); NEUTROPHILS % (MANUAL) 80 % (40-74); PLATELET ESTIMATE ADEQUATE; PLATELET MORPHOLOGY COMMENT NORMAL; RBC MORPHOLOGY COMMENT NORMAL
--- NOTE | 2018-03-10 21:23 | Consultation ---
DATE OF CONSULTATION: March 10, 2018 REASON FOR CONSULTATION: Leukocytosis. 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 Anselmo Rasmussen, comes into the emergency room on February the because he was not able to urinate, there was a blood clot in the bladder again, so he was admitted. Xiong catheter started. The patient has had irrigation and since then he continued to have blood clots, but it was also noted that he has leukocytosis, was getting worse as well as renal failure. Patient has been seen by cardiology. He has been seen by endocrine. Infectious disease was consulted because of the leukocytosis. He is currently lying in bed comfortably, he is just feeling weak. No complaints. He denies any fever or chills, nausea, vomiting, diarrhea, or any pain. Of interest, when he first came, his white count was 11.22 but today his white count 23.2, his hemoglobin 8.5, hematocrit 27. Sodium 134, potassium 4.9, creatinine 10.56. Lactic acid was not done. His hemoglobin 8.5, platelet 219,000, his neutrophils 86%, lymphocytes is 9%. MEDICATIONS: The patient is on amiodarone, Tylenol No. 3, Xanax, Rocephin, metoprolol. He has a chest x-ray on February, which was right side tunneled catheter, stable chest. He had CT abdomen and pelvis when he first came, which showed the blood clot in the bladder, otherwise diverticulosis, cholelithiasis. REVIEW OF SYSTEMS: At present time: HEENT: Negative. PULMONARY: Negative. CARDIAC: Negative. : Negative. IMPRESSION: 1. Worsening leukocytosis while he is here, while on antibiotic. No symptoms yet. I will suggest to discontinue the Rocephin. Check amylase, lipase, liver enzymes, lactic acid, procalcitonin. Recheck computerized tomography. Recheck complete blood cell count with differential in the morning. I suspect it could be early colitis, Clostridium difficile, but will see the result of the above. Will follow. 2. Hematuria. 3. Acute tubular necrosis over chronic kidney disease. 4. Will follow with you. Job#: [id number]
--- NOTE | 2018-03-10 21:33 | Diagnostic Imaging Report ---
EXAM: CT ABDOMEN/PELVIS WO, CT CHEST WO INDICATION: Infection COMPARISON: CT abdomen 03/04/2018 TECHNIQUE: Chest, abdomen and pelvis were scanned utilizing a multidetector helical scanner from the lung apex to the pubic symphysis. Coronal and sagittal reformations were obtained IV CONTRAST: None mL Isovue 300/370 FINDINGS: Lack of IV contrast decreases sensitivity in evaluating abdominal and pelvic organs. Right tunneled IJ dialysis catheter terminating at the high right atrium. LUNGS/AIRWAYS/PLEURA: Underlying emphysema. Several nonspecific small nodules measuring up to 4 mm (image 19, 33, 68 series 5). Trace right greater than left pleural effusions. Mild bibasilar atelectasis and interlobular septal thickening. HEART AND MEDIASTINUM: No suspicious adenopathy. Mild cardiomegaly without pericardial effusion. Coronary artery, aortic valve and aortic atherosclerotic calcifications. HEPATOBILIARY/GALLBLADDER: No focal liver lesions. Cholelithiasis. SPLEEN: No splenomegaly. PANCREAS: No masses or ductal dilation. ADRENALS: Stable 1.4 cm left adrenal adenoma.. KIDNEYS/URETERS: Stable right renal cystic structures, largest 2.3 cm. Mild bilateral hydroureteronephrosis with new/increased marked left periureteral and perinephric stranding. Stable 5 mm distal right ureteral calculus. GI TRACT: No obstruction. Diverticulosis. Normal appendix. PELVIC ORGANS/BLADDER: Thick-walled bladder, decompressed with a Xiong. LYMPH NODES: No lymphadenopathy. VESSELS: Moderate atherosclerotic calcifications. PERITONEUM / RETROPERITONEUM: No free air or fluid. BONES/SOFT TISSUES: Scattered degenerative changes. Bilateral fat-containing inguinal hernias. IMPRESSION: Examination degraded by lack of IV contrast 1. Findings of left pyelonephritis/pyelitis with mild left hydroureteronephrosis. Correlate with urinalysis. 2. Stable mild right hydroureteronephrosis related to 5 mm distal ureteral calculus. 3. Cardiomegaly with mild edema and trace effusions. Signed by: Dr Beverley Carpenter MD on 03/10/2018 9:30 PM
[2018-03-10 21:36] VITALS: BP 142/73
[2018-03-10] MEDS ORDERED: METRONIDAZOLE 500MG/NS 100ML 100 ML IV SCH (22:00)
[2018-03-11] VITALS (8 sets, daily range): BP systolic 131–143; BP diastolic 63–80
[2018-03-11] MEDS: AMIODARONE HCL 200 MG TAB PO SCH ×4 (01:34→22:00)
[2018-03-11] MEDS: ACETAMINOPHEN/CODEINE 300MG - 30MG TAB PO PRN ×2 (01:34→17:51)
[2018-03-11 06:42] LABS: BASOPHILS % 0.2 % (0.0-1.0); EOSINOPHILS # (AUTO) 0.8 (0.0-0.4); HEMATOCRIT 23.2 % (38.2-49.6); HEMOGLOBIN 7.6 g/dL (14.0-18.0); LYMPHOCYTES # (AUTO) 1.4 (1.0-3.2); LYMPHOCYTES % 9.2 % (18.0-39.1); MEAN CORPUSCULAR HEMOGLOBIN 28.5 pg (28-32); MEAN CORPUSCULAR HGB CONC 32.8 g/dL (31-35); MEAN CORPUSCULAR VOLUME 86.9 fL (81-99); MONOCYTES # (AUTO) 1.3 (0.2-0.8); MONOCYTES % 8.6 % (4.4-11.3); NEUTROPHILS # (AUTO) 11.6 (2.1-6.9); NEUTROPHILS % 75.8 % (38.7-80.0); PLATELET COUNT 187 x10e3/uL (140-360); RED BLOOD COUNT 2.67 x10e6/uL (4.3-5.7); RED CELL DISTRIBUTION WIDTH 13.2 % (11.7-14.4)
[2018-03-11 06:46] LABS: ALBUMIN 2.3 g/dL (3.5-5.0); ALBUMIN/GLOBULIN RATIO 0.6 (0.8-2.0); ANION GAP 17.5 mmol/L (8-16); CREATININE, SERUM 8.62 mg/dL (0.72-1.25); POTASSIUM 4.5 mmol/L (3.5-5.1)
[2018-03-11] MEDS: IPRATROPIUM BROMIDE 0.02% 2.5 ML NEB NEB SCH ×3 (07:00→23:00)
[2018-03-11] MEDS: INSULIN LISPRO 100 UNIT/1 ML 3ML VIAL SQ SCH ×4 (07:30→20:37)
[2018-03-11] MEDS ORDERED: SODIUM CHLORIDE 0.9% 250ML 250 ML IV ONE (08:15)
[2018-03-11] MEDS: METOPROLOL TARTRATE 25 MG TAB PO SCH ×2 (09:00→17:21)
[2018-03-11] MEDS: CALCIUM ACETATE 667 MG GELCAP PO SCH ×3 (09:49→17:21)
[2018-03-11] MEDS: ALPRAZOLAM 0.25 MG TAB PO PRN (11:49)
[2018-03-11] MEDS ORDERED: IOPAMIDOL 610MG/1ML 300 MG/ML VIAL IV ONE (11:55)
[2018-03-11] MEDS ORDERED: SODIUM CHLORIDE 0.9% 500ML 500 ML ONE (13:52)
[2018-03-11] MEDS ORDERED: MIDAZOLAM HCL 2 MG/2 ML VIAL ONE (14:46)
[2018-03-11] MEDS ORDERED: FENTANYL CITRATE/PF 100MCG/2 ML INJ ONE (14:46)
[2018-03-11] MEDS ORDERED: IOTHALAMATE MEGLUMINE 17.20% 250 ML BTL ONE ×2 (15:11)
[2018-03-11] MEDS ORDERED: MEROPENEM 500MG 500 MG in SODIUM CHLORIDE 0.9% 50ML 50 ML IV SCH (17:45)
[2018-03-11] MEDS ORDERED: LIDOCAINE HCL 2% LOCAL INJ 5 ML SDV VIAL INJ ONE (19:45)
[2018-03-11] MEDS ORDERED: SEVOFLURANE INHAL SOLN 250 ML PEN BTL ONE (19:45)
[2018-03-11] MEDS ORDERED: PROPOFOL IV EMULSION 10 MG/ML 20 ML VIAL ONE (19:45)
[2018-03-11] MEDS ORDERED: DEXAMETHASONE SOD PHOS INJ 4 MG/ML VIAL ONE (19:45)
[2018-03-11] MEDS: MEROPENEM 500 MG VIAL IV SCH (20:45)
[2018-03-12 03:49] VITALS: BP 114/89
[2018-03-12] MEDS: AMIODARONE HCL 200 MG TAB PO SCH ×3 (05:17→14:30)
[2018-03-12 06:31] LABS: BASOPHILS % 0.2 % (0.0-1.0); EOSINOPHILS % 0.2 % (0.0-6.0); HEMATOCRIT 29.6 % (38.2-49.6); HEMOGLOBIN 9.8 g/dL (14.0-18.0); LYMPHOCYTES # (AUTO) 1.2 (1.0-3.2); LYMPHOCYTES % 6.3 % (18.0-39.1); MEAN CORPUSCULAR HEMOGLOBIN 28.8 pg (28-32); MEAN CORPUSCULAR HGB CONC 33.1 g/dL (31-35); MEAN CORPUSCULAR VOLUME 87.1 fL (81-99); MONOCYTES # (AUTO) 1.6 (0.2-0.8); MONOCYTES % 8.7 % (4.4-11.3); NEUTROPHILS # (AUTO) 15.5 (2.1-6.9); NEUTROPHILS % 83.6 % (38.7-80.0); PLATELET COUNT 203 x10e3/uL (140-360); RED CELL DISTRIBUTION WIDTH 13.4 % (11.7-14.4)
[2018-03-12] MEDS: IPRATROPIUM BROMIDE 0.02% 2.5 ML NEB NEB SCH ×3 (07:00→23:00)
[2018-03-12 07:01] LABS: ANION GAP 21.9 mmol/L (8-16); CALCIUM 8.3 mg/dL (8.4-10.2); CREATININE, SERUM 7.54 mg/dL (0.72-1.25); POTASSIUM 4.9 mmol/L (3.5-5.1)
[2018-03-12] MEDS: INSULIN LISPRO 100 UNIT/1 ML 3ML VIAL SQ SCH ×4 (07:30→20:45)
[2018-03-12 08:00] VITALS: BP 130/70
[2018-03-12 08:35] LABS: LYMPHOCYTES % (MANUAL) 2 % (19-48); MONOCYTES % (MANUAL) 5 % (3.4-9.0); NEUTROPHILS % (MANUAL) 92 % (40-74)
[2018-03-12 08:36] LABS: ANISOCYTOSIS SLIGHT; HYPOCHROMASIA SLIGHT; PLATELET ESTIMATE ADEQUATE; PLATELET MORPHOLOGY COMMENT NORMAL; POIKILOCYTOSIS SLIGHT; RBC MORPHOLOGY COMMENT NORMAL
[2018-03-12] MEDS: CALCIUM ACETATE 667 MG GELCAP PO SCH ×3 (08:57→17:30)
[2018-03-12] MEDS: METOPROLOL TARTRATE 25 MG TAB PO SCH ×2 (08:57→17:30)
[2018-03-12 12:00] VITALS: BP 142/86
--- NOTE | 2018-03-12 15:50 | Operative Report ---
DATE OF PROCEDURE: March 11, 2018 SERVICE: Urology. PREOPERATIVE DIAGNOSES 1. Gross hematuria. 2. Hydronephrosis. POSTOPERATIVE DIAGNOSES 1. Gross hematuria. 2. Hydronephrosis. OPERATIONS PERFORMED 1. Cystoscopy and evacuation of clots. 2. Cystogram under fluoroscopic control. 3. Bladder biopsies. 4. Fulguration of bleeding points. 5. Interpretation of x-ray, radiologist not present. 6. Supervision of fluoroscopy, radiologist not present. TELEVISION PRODUCTION CLERK: None. ANESTHESIA: General. CLINICAL INDICATION NOTE: This is a 67-year-old patient who is brought for gross hematuria. The patient's CT scan shows some hydro. Attempt will be made to do a retrograde as well as the treatment of the hematuria. DESCRIPTION OF THE PROCEDURE AND FINDINGS: The patient was placed in lithotomy position, prepped and draped in usual sterile fashion. The urethra inspected, was unremarkable. The outlet was obstructed by enlarged prostate. The bladder was extensively inflamed with bullous edema, impossible to identify ureteral orifices. All the blood clots in the bladder were evacuated. Following this, a cystogram was done demonstrating somewhat irregular bladder, however, capacity appeared to be adequate. Following this, applications sales representative area of the bladder was biopsied. This was followed by placement of a Bugbee electrode and careful fulguration of any bleeding point that could be identified. Following this, a 24-Kiswahili 30 mL Yuko catheter was inserted and connected to continuous irrigation with normal saline. The patient tolerated the procedure well, was transferred in satisfactory condition to recovery room. He will be followed as needed. Job#: [id number]
[2018-03-12 16:40] VITALS: BP 12/62
[2018-03-12] MEDS: MEROPENEM 500 MG VIAL IV SCH (17:30)
[2018-03-12 20:00] VITALS: BP 122/79
[2018-03-12] MEDS: ACETAMINOPHEN/CODEINE 300MG - 30MG TAB PO PRN (20:30)
[2018-03-12 21:00] VITALS: BP 122/79
[2018-03-13] VITALS (7 sets, daily range): BP systolic 121–161; BP diastolic 68–97
[2018-03-13] MEDS: ACETAMINOPHEN/CODEINE 300MG - 30MG TAB PO PRN ×4 (01:26→22:47)
[2018-03-13 06:10] LABS: BASOPHILS % 0.2 % (0.0-1.0); EOSINOPHILS # (AUTO) 0.7 (0.0-0.4); HEMOGLOBIN 9.4 g/dL (14.0-18.0); LYMPHOCYTES % 11.3 % (18.0-39.1); MEAN CORPUSCULAR HEMOGLOBIN 29.6 pg (28-32); MEAN CORPUSCULAR HGB CONC 33.6 g/dL (31-35); MEAN CORPUSCULAR VOLUME 88.1 fL (81-99); MONOCYTES # (AUTO) 1.8 (0.2-0.8); MONOCYTES % 10.1 % (4.4-11.3); NEUTROPHILS # (AUTO) 13.1 (2.1-6.9); NEUTROPHILS % 73.2 % (38.7-80.0); PLATELET COUNT 222 x10e3/uL (140-360); RED BLOOD COUNT 3.18 x10e6/uL (4.3-5.7); RED CELL DISTRIBUTION WIDTH 13.8 % (11.7-14.4)
[2018-03-13] MEDS: IPRATROPIUM BROMIDE 0.02% 2.5 ML NEB NEB SCH ×3 (07:00→19:56)
[2018-03-13 07:26] LABS: EOSINOPHILS % (MANUAL) 2 % (0-7); LYMPHOCYTES % (MANUAL) 7 % (19-48); MONOCYTES % (MANUAL) 8 % (3.4-9.0); NEUTROPHILS % (MANUAL) 81 % (40-74)
[2018-03-13 07:27] LABS: PLATELET ESTIMATE ADEQUATE; RBC MORPHOLOGY COMMENT NORMAL
[2018-03-13 07:28] LABS: ANISOCYTOSIS SLIGHT; HYPOCHROMASIA SLIGHT; PLATELET MORPHOLOGY COMMENT FEW LARGE
[2018-03-13] MEDS: INSULIN LISPRO 100 UNIT/1 ML 3ML VIAL SQ SCH ×4 (07:30→21:00)
[2018-03-13] MEDS: CALCIUM ACETATE 667 MG GELCAP PO SCH ×3 (08:14→17:09)
[2018-03-13] MEDS: AMIODARONE HCL 200 MG TAB PO SCH (08:33)
[2018-03-13] MEDS: METOPROLOL TARTRATE 25 MG TAB PO SCH ×2 (08:33→17:09)
[2018-03-13] MEDS ORDERED: AMIODARONE HCL 200 MG TAB PO SCH (09:00)
[2018-03-13] MEDS ORDERED: ALPRAZOLAM 0.25 MG TAB PO PRN (09:30)
[2018-03-13] MEDS: ALPRAZOLAM 0.25 MG TAB PO PRN (09:31)
[2018-03-13 09:32] LABS: ANION GAP 26.2 mmol/L (8-16); CALCIUM 8.2 mg/dL (8.4-10.2); CREATININE, SERUM 10.1 mg/dL (0.72-1.25); POTASSIUM 5.2 mmol/L (3.5-5.1)
[2018-03-13] MEDS: MEROPENEM 500 MG VIAL IV SCH (17:16)
[2018-03-13] MEDS ORDERED: MIDAZOLAM HCL 2 MG/2 ML VIAL ONE (20:10)
[2018-03-13] MEDS ORDERED: FENTANYL CITRATE/PF 100MCG/2 ML INJ ONE (20:11)
[2018-03-13] MEDS ORDERED: LIDOCAINE HCL 2% LOCAL 20 ML VIAL ONE (20:11)
[2018-03-13] MEDS ORDERED: SODIUM CHLORIDE 0.9% 500ML 500 ML ONE (20:12)
[2018-03-13] MEDS ORDERED: IOPAMIDOL 370 MG/ML 200 ML INFUS..BTL INJ ONE (20:12)
[2018-03-13] MEDS ORDERED: SODIUM CHLORIDE 0.9% 1000ML 1,000 ML ONE (20:37)
[2018-03-14 02:00] VITALS: BP 120/64
[2018-03-14 03:58] VITALS: BP 126/66
[2018-03-14] MEDS: ACETAMINOPHEN 325 MG TAB PO PRN (05:29)
[2018-03-14] MEDS: ALPRAZOLAM 0.25 MG TAB PO PRN (05:29)
[2018-03-14 06:13] LABS: BASOPHILS # (AUTO) 0.1 (0.0-0.1); BASOPHILS % 0.7 % (0.0-1.0); EOSINOPHILS # (AUTO) 0.6 (0.0-0.4); HEMATOCRIT 29.4 % (38.2-49.6); HEMOGLOBIN 9.4 g/dL (14.0-18.0); LYMPHOCYTES # (AUTO) 1.4 (1.0-3.2); LYMPHOCYTES % 13.7 % (18.0-39.1); MEAN CORPUSCULAR VOLUME 87.5 fL (81-99); MONOCYTES # (AUTO) 1.5 (0.2-0.8); MONOCYTES % 14.2 % (4.4-11.3); NEUTROPHILS # (AUTO) 6.7 (2.1-6.9); NEUTROPHILS % 63.9 % (38.7-80.0); PLATELET COUNT 216 x10e3/uL (140-360); RED BLOOD COUNT 3.36 x10e6/uL (4.3-5.7); RED CELL DISTRIBUTION WIDTH 13.9 % (11.7-14.4)
[2018-03-14 06:30] VITALS: BP 121/68
[2018-03-14 06:36] LABS: ANION GAP 17.5 mmol/L (8-16); CALCIUM 8.6 mg/dL (8.4-10.2); POTASSIUM 4.5 mmol/L (3.5-5.1)
[2018-03-14 06:42] LABS: CREATININE, SERUM 4.36 mg/dL (0.72-1.25)
[2018-03-14] MEDS: IPRATROPIUM BROMIDE 0.02% 2.5 ML NEB NEB SCH ×3 (07:00→23:00)
[2018-03-14] MEDS: INSULIN LISPRO 100 UNIT/1 ML 3ML VIAL SQ SCH ×4 (07:14→21:00)
[2018-03-14 07:27] VITALS: BP 122/80
[2018-03-14] MEDS: CALCIUM ACETATE 667 MG GELCAP PO SCH ×3 (08:59→17:41)
[2018-03-14] MEDS: METOPROLOL TARTRATE 25 MG TAB PO SCH ×2 (08:59→17:42)
[2018-03-14] MEDS: AMIODARONE HCL 200 MG TAB PO SCH (08:59)
[2018-03-14] MEDS: ACETAMINOPHEN/CODEINE 300MG - 30MG TAB PO PRN ×4 (09:01→22:08)
--- NOTE | 2018-03-14 09:11 | Diagnostic Imaging Report ---
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 Kurtz Pre-operative diagnosis: Hemorrhagic cystitis, distal right ureteral calculus, bilateral ureteral obstruction, mild hydronephrosis Post-operative diagnosis: Hemorrhagic cystitis, distal right ureteral calculus, bilateral ureteral obstruction Conscious Sedation: Versed 2 mg and Fentanyl 100 mcg. The patient's heart rate and pulse oximetry were continuously monitored by the interventional radiology nurse. Blood pressure was monitored at 5 minute intervals. Additional Medications: Lidocaine 1% for local anesthesia Fluoroscopy time: 8.9 Dose-area Product: 3564 cGycm2. Contrast used: 30 cc Isovue-300 Estimated blood loss: Less than 10 cc Specimens: None Implants: 10.2 [place], 26 cm interloop length left nephroureteral catheter; 10.2 [place], 24 cm interloop length right nephroureteral catheter DISCUSSION: Informed consent for the procedure was obtained from the patient and documented in the medical record after discussion of risks and benefits. The patient was placed in the prone position on the fluoroscopic table. The flanks were prepped and draped in standard sterile fashion. Attention was first turned to the left kidney. A suitable percutaneous approach to a dilated lower pole calyx was identified and 1% lidocaine was infiltrated into the skin and subcutaneous tissues. Then under continuous sonographic guidance, a 21-gauge, 15 cm needle was advanced into a lower pole calyx. A permanent sonographic image was stored. Injection of dilute contrast material confirmed appropriate position within the collecting system. A 0.0 1 8-in. wire was then coiled within the collecting system under fluoroscopic guidance and the needle was exchanged for a 6 [place] coaxial sheath. The wire and obturator of the sheath were removed. A 4 [place] angled catheter and 0.0 3 5-in. Glidewire were advanced through the sheath, down the ureter, and into the urinary bladder, with position confirmed by injection of contrast material. A 0.0 3 5-in. Amplatz Super Stiff wire was then advanced through the catheter and coiled within the urinary bladder. The catheter and sheath were removed, the tract was dilated, and a 10.2 [place], 26 cm interloop length nephroureteral catheter was advanced over the wire under fluoroscopic guidance. The wire was removed. The distal locking loop was formed in the urinary bladder, the proximal locking loop was formed in the renal pelvis. Injection of dilute contrast material confirmed appropriate positioning. The catheter was flushed copiously with sterile saline and connected to gravity drainage. The catheter was secured to the skin with monofilament nylon suture. A sterile dressing was applied. Attention was then turned to the right flank. A suitable percutaneous approach to the right kidney was identified and lidocaine 1% was infiltrated into the skin and subcutaneous tissues for local anesthesia. Under continuous sonographic guidance, a 21-gauge, 15 cm needle was used to access a dilated lower pole calyx. A permanent sonographic image was stored. Injection of dilute contrast material confirmed appropriate positioning. A 0.0 1 8-in. wire was advanced centrally under fluoroscopic guidance and the needle was exchanged for a 6 [place] coaxial sheath. A 4 [place] angled catheter and hydrophilic wire were advanced through the sheath, down the right ureter, and into the urinary bladder. The hydrophilic wire was then exchanged for an Amplatz Super Stiff wire which was coiled within the urinary bladder. The catheter and sheath were removed, the tract was dilated, and a 10.2 [place], 24 cm interloop length nephroureteral catheter was advanced over the wire, which was then removed. The distal locking loop was formed in the urinary bladder. The proximal locking loop was formed in the renal pelvis. Injection of dilute contrast material confirmed appropriate positioning. The catheter was flushed copiously with sterile saline and connected to gravity drainage. The catheter was secured to the skin with monofilament nylon suture and a sterile dressing was applied. FINDINGS: 1. Mild bilateral hydroureteronephrosis. 2. Large caliber bladder catheter in place. Large filling defect within the urinary bladder, presumed blood clot. IMPRESSION: Successful placement of bilateral percutaneous nephroureteral catheters (10.2 [place]) under sonographic and fluoroscopic guidance. The catheters should remain to gravity drainage for the next 48 hours. A capping trial may be then considered at the discretion of the urology service. The patient should return to interventional radiology for routine catheter exchange in 3 months if the catheters are still needed at that time. Signed by: Dr. Rashel Kurtz M.D. on 03/14/2018 9:07 AM
[2018-03-14 16:45] VITALS: BP 137/76
[2018-03-14] MEDS: MEROPENEM 500 MG VIAL IV SCH (18:55)
[2018-03-15] VITALS (7 sets, daily range): BP systolic 127–149; BP diastolic 64–87
[2018-03-15 06:16] LABS: BASOPHILS # (AUTO) 0.1 (0.0-0.1); BASOPHILS % 0.7 % (0.0-1.0); EOSINOPHILS # (AUTO) 0.6 (0.0-0.4); EOSINOPHILS % 3.5 % (0.0-6.0); HEMOGLOBIN 10.8 g/dL (14.0-18.0); LYMPHOCYTES # (AUTO) 3.1 (1.0-3.2); LYMPHOCYTES % 17.8 % (18.0-39.1); MEAN CORPUSCULAR HEMOGLOBIN 28.6 pg (28-32); MEAN CORPUSCULAR HGB CONC 32.7 g/dL (31-35); MEAN CORPUSCULAR VOLUME 87.5 fL (81-99); MONOCYTES # (AUTO) 1.9 (0.2-0.8); MONOCYTES % 10.6 % (4.4-11.3); NEUTROPHILS # (AUTO) 11.5 (2.1-6.9); NEUTROPHILS % 65.5 % (38.7-80.0); PLATELET COUNT 333 x10e3/uL (140-360); RED BLOOD COUNT 3.77 x10e6/uL (4.3-5.7); RED CELL DISTRIBUTION WIDTH 13.5 % (11.7-14.4)
[2018-03-15] MEDS: ACETAMINOPHEN/CODEINE 300MG - 30MG TAB PO PRN ×5 (06:31→22:50)
[2018-03-15 06:47] LABS: ANION GAP 18.8 mmol/L (8-16); CALCIUM 9.5 mg/dL (8.4-10.2); CREATININE, SERUM 1.71 mg/dL (0.72-1.25); POTASSIUM 4.8 mmol/L (3.5-5.1)
[2018-03-15] MEDS: IPRATROPIUM BROMIDE 0.02% 2.5 ML NEB NEB SCH ×2 (07:00→15:00)
[2018-03-15] MEDS: INSULIN LISPRO 100 UNIT/1 ML 3ML VIAL SQ SCH ×4 (07:30→21:00)
[2018-03-15 07:34] LABS: EOSINOPHILS % (MANUAL) 4 % (0-7); LYMPHOCYTES % (MANUAL) 17 % (19-48); MONOCYTES % (MANUAL) 12 % (3.4-9.0); NEUTROPHILS % (MANUAL) 66 % (40-74)
[2018-03-15 07:35] LABS: RBC MORPHOLOGY COMMENT NORMAL
[2018-03-15 07:36] LABS: ANISOCYTOSIS SLIGHT; HYPOCHROMASIA SLIGHT; PLATELET ESTIMATE ADEQUATE; PLATELET MORPHOLOGY COMMENT NORMAL
[2018-03-15] MEDS: AMIODARONE HCL 200 MG TAB PO SCH (09:08)
[2018-03-15] MEDS: CALCIUM ACETATE 667 MG GELCAP PO SCH ×3 (09:08→17:01)
[2018-03-15] MEDS: METOPROLOL TARTRATE 25 MG TAB PO SCH ×2 (09:09→17:01)
--- NOTE | 2018-03-15 12:37 | Diagnostic Imaging Report ---
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 Kurtz Pre-operative diagnosis: Hemorrhagic cystitis, distal right ureteral calculus, bilateral ureteral obstruction, mild hydronephrosis Post-operative diagnosis: Hemorrhagic cystitis, distal right ureteral calculus, bilateral ureteral obstruction Conscious Sedation: Versed 2 mg and Fentanyl 100 mcg. The patient's heart rate and pulse oximetry were continuously monitored by the interventional radiology nurse. Blood pressure was monitored at 5 minute intervals. Additional Medications: Lidocaine 1% for local anesthesia Fluoroscopy time: 8.9 Dose-area Product: 3564 cGycm2. Contrast used: 30 cc Isovue-300 Estimated blood loss: Less than 10 cc Specimens: None Implants: 10.2 [place]ian, 26 cm interloop length left nephroureteral catheter; 10.2 [place], 24 cm interloop length right nephroureteral catheter DISCUSSION: Informed consent for the procedure was obtained from the patient and documented in the medical record after discussion of risks and benefits. The patient was placed in the prone position on the fluoroscopic table. The flanks were prepped and draped in standard sterile fashion. Attention was first turned to the left kidney. A suitable percutaneous approach to a dilated lower pole calyx was identified and 1% lidocaine was infiltrated into the skin and subcutaneous tissues. Then under continuous sonographic guidance, a 21-gauge, 15 cm needle was advanced into a lower pole calyx. A permanent sonographic image was stored. Injection of dilute contrast material confirmed appropriate position within the collecting system. A 0.0 1 8-in. wire was then coiled within the collecting system under fluoroscopic guidance and the needle was exchanged for a 6 [place] coaxial sheath. The wire and obturator of the sheath were removed. A 4 [place] angled catheter and 0.0 3 5-in. Glidewire were advanced through the sheath, down the ureter, and into the urinary bladder, with position confirmed by injection of contrast material. A 0.0 3 5-in. Amplatz Super Stiff wire was then advanced through the catheter and coiled within the urinary bladder. The catheter and sheath were removed, the tract was dilated, and a 10.2 [place], 26 cm interloop length nephroureteral catheter was advanced over the wire under fluoroscopic guidance. The wire was removed. The distal locking loop was formed in the urinary bladder, the proximal locking loop was formed in the renal pelvis. Injection of dilute contrast material confirmed appropriate positioning. The catheter was flushed copiously with sterile saline and connected to gravity drainage. The catheter was secured to the skin with monofilament nylon suture. A sterile dressing was applied. Attention was then turned to the right flank. A suitable percutaneous approach to the right kidney was identified and lidocaine 1% was infiltrated into the skin and subcutaneous tissues for local anesthesia. Under continuous sonographic guidance, a 21-gauge, 15 cm needle was used to access a dilated lower pole calyx. A permanent sonographic image was stored. Injection of dilute contrast material confirmed appropriate positioning. A 0.0 1 8-in. wire was advanced centrally under fluoroscopic guidance and the needle was exchanged for a 6 [place]ijian coaxial sheath. A 4 [place] angled catheter and hydrophilic wire were advanced through the sheath, down the right ureter, and into the urinary bladder. The hydrophilic wire was then exchanged for an Amplatz Super Stiff wire which was coiled within the urinary bladder. The catheter and sheath were removed, the tract was dilated, and a 10.2 [place]ij[place], 24 cm interloop length nephroureteral catheter was advanced over the wire, which was then removed. The distal locking loop was formed in the urinary bladder. The proximal locking loop was formed in the renal pelvis. Injection of dilute contrast material confirmed appropriate positioning. The catheter was flushed copiously with sterile saline and connected to gravity drainage. The catheter was secured to the skin with monofilament nylon suture and a sterile dressing was applied. FINDINGS: 1. Mild bilateral hydroureteronephrosis. 2. Large caliber bladder catheter in place. Large filling defect within the urinary bladder, presumed blood clot. IMPRESSION: Successful placement of bilateral percutaneous nephroureteral catheters (10.2 Fijian) under sonographic and fluoroscopic guidance. The catheters should remain to gravity drainage for the next 48 hours. A capping trial may be then considered at the discretion of the urology service. The patient should return to interventional radiology for routine catheter exchange in 3 months if the catheters are still needed at that time. Signed by: Dr. Rashel Kurtz M.D. on 03/14/2018 9:07 AM
[2018-03-15] MEDS ORDERED: LIDOCAINE HCL 1% LOCAL INJ 20 ML VIAL ONE (14:49)
--- NOTE | 2018-03-15 15:40 | Diagnostic Imaging Report ---
PROCEDURE:REMOVAL TUNNEDLED CV CATH COMPARISON:None. INDICATIONS:Dialysis no longer required. FINDINGS:Sterile preparation of the upper right chest was accomplished. Local anesthesia with 1% Xylocaine administered. The tunneled hemodialysis catheter was then removed with blunt dissection. Entry site was closed with 3 interrupted 3-0 Vicryl sutures. Fluoroscopy time: 0.1 minutes Total dose: 3.86 mGy CONCLUSION:Successful removal of a tunneled hemodialysis catheter. Eliot Turner D.O. Dictated by: Eliot Turner D.O. on 03/15/2018 at 15:42 Electronically approved by: Eliot Turner D.O. on 03/15/2018 at 15:42
[2018-03-15] MEDS: MEROPENEM 500 MG VIAL IV SCH (17:01)
[2018-03-16] VITALS: BP 143/69
[2018-03-16] MEDS: ACETAMINOPHEN/CODEINE 300MG - 30MG TAB PO PRN ×6 (03:13→23:31)
[2018-03-16 03:30] VITALS: BP 137/72
[2018-03-16 06:17] LABS: BASOPHILS # (AUTO) 0.1 (0.0-0.1); BASOPHILS % 0.6 % (0.0-1.0); EOSINOPHILS # (AUTO) 0.6 (0.0-0.4); HEMATOCRIT 31.1 % (38.2-49.6); HEMOGLOBIN 10.1 g/dL (14.0-18.0); LYMPHOCYTES # (AUTO) 1.6 (1.0-3.2); LYMPHOCYTES % 11.7 % (18.0-39.1); MEAN CORPUSCULAR HEMOGLOBIN 28.3 pg (28-32); MEAN CORPUSCULAR HGB CONC 32.5 g/dL (31-35); MEAN CORPUSCULAR VOLUME 87.1 fL (81-99); MONOCYTES # (AUTO) 1.3 (0.2-0.8); MONOCYTES % 9.6 % (4.4-11.3); NEUTROPHILS # (AUTO) 10.1 (2.1-6.9); NEUTROPHILS % 72.7 % (38.7-80.0); PLATELET COUNT 331 x10e3/uL (140-360); RED BLOOD COUNT 3.57 x10e6/uL (4.3-5.7); RED CELL DISTRIBUTION WIDTH 13.4 % (11.7-14.4)
[2018-03-16] MEDS: INSULIN LISPRO 100 UNIT/1 ML 3ML VIAL SQ SCH ×4 (07:30→21:00)
[2018-03-16 07:45] VITALS: BP 152/80
[2018-03-16] MEDS: IPRATROPIUM BROMIDE 0.02% 2.5 ML NEB NEB SCH ×3 (08:07→23:00)
[2018-03-16] MEDS: CALCIUM ACETATE 667 MG GELCAP PO SCH ×3 (09:16→17:03)
[2018-03-16] MEDS: AMIODARONE HCL 200 MG TAB PO SCH (09:16)
[2018-03-16] MEDS: SODIUM BICARBONATE 650 MG TAB PO SCH ×2 (09:17→17:03)
[2018-03-16] MEDS: METOPROLOL TARTRATE 25 MG TAB PO SCH ×2 (09:17→17:03)
[2018-03-16 11:21] VITALS: BP 147/74
[2018-03-16] MEDS: MEROPENEM 500 MG VIAL IV SCH (17:03)
[2018-03-16 18:00] VITALS: BP 146/75
[2018-03-16] MEDS: MORPHINE SULFATE 2 MG/ML SYR IV PRN ×2 (18:35→22:38)
[2018-03-16 20:00] VITALS: BP 143/69
[2018-03-17] VITALS (8 sets, daily range): BP systolic 117–146; BP diastolic 59–75
[2018-03-17] MEDS: MORPHINE SULFATE 2 MG/ML SYR IV PRN ×2 (02:51→06:43)
[2018-03-17] MEDS: ACETAMINOPHEN/CODEINE 300MG - 30MG TAB PO PRN ×3 (03:48→11:40)
[2018-03-17 06:16] LABS: ANION GAP 15.9 mmol/L (8-16); BLOOD UREA NITROGEN 28 mg/dL (7-26); BUN/CREATININE RATIO 27 (6-25); CALCIUM 8.9 mg/dL (8.4-10.2); CARBON DIOXIDE 21 mmol/L (22-29); CHLORIDE 107 mmol/L (98-107); CREATININE, SERUM 1.05 mg/dL (0.72-1.25); EST GLOMERULAR FILTRATION RATE > 60 ML/MIN (60-); GLUCOSE 109 mg/dL (74-118); POTASSIUM 3.9 mmol/L (3.5-5.1); SODIUM 140 mmol/L (136-145)
[2018-03-17] MEDS: IPRATROPIUM BROMIDE 0.02% 2.5 ML NEB NEB SCH ×3 (07:00→23:00)
[2018-03-17] MEDS: INSULIN LISPRO 100 UNIT/1 ML 3ML VIAL SQ SCH ×4 (07:30→19:43)
[2018-03-17] MEDS: CALCIUM ACETATE 667 MG GELCAP PO SCH ×3 (07:37→17:36)
[2018-03-17] MEDS: AMIODARONE HCL 200 MG TAB PO SCH (08:18)
[2018-03-17] MEDS: METOPROLOL TARTRATE 25 MG TAB PO SCH ×2 (08:19→17:36)
[2018-03-17] MEDS: SODIUM BICARBONATE 650 MG TAB PO SCH ×2 (08:19→17:36)
[2018-03-17] MEDS ORDERED: ALPRAZOLAM 0.5 MG TAB PO PRN (15:00)
[2018-03-17] MEDS: HYDROCODONE/APAP 5MG-325MG TAB PO PRN ×3 (15:27→23:15)
[2018-03-17] MEDS: MEROPENEM 500 MG VIAL IV SCH (17:36)
[2018-03-18] VITALS (7 sets, daily range): BP systolic 114–150; BP diastolic 57–79
[2018-03-18] MEDS: HYDROCODONE/APAP 5MG-325MG TAB PO PRN ×6 (03:15→23:25)
[2018-03-18 06:16] LABS: BASOPHILS # (AUTO) 0.1 (0.0-0.1); BASOPHILS % 1.1 % (0.0-1.0); EOSINOPHILS # (AUTO) 1.1 (0.0-0.4); EOSINOPHILS % 8.7 % (0.0-6.0); HEMATOCRIT 31.5 % (38.2-49.6); HEMOGLOBIN 10.2 g/dL (14.0-18.0); LYMPHOCYTES % 16.6 % (18.0-39.1); MEAN CORPUSCULAR HEMOGLOBIN 28.1 pg (28-32); MEAN CORPUSCULAR HGB CONC 32.4 g/dL (31-35); MEAN CORPUSCULAR VOLUME 86.8 fL (81-99); MONOCYTES # (AUTO) 1.2 (0.2-0.8); MONOCYTES % 9.9 % (4.4-11.3); NEUTROPHILS # (AUTO) 7.6 (2.1-6.9); NEUTROPHILS % 61.7 % (38.7-80.0); PLATELET COUNT 415 x10e3/uL (140-360); RED BLOOD COUNT 3.63 x10e6/uL (4.3-5.7); RED CELL DISTRIBUTION WIDTH 13.1 % (11.7-14.4)
[2018-03-18] MEDS: MORPHINE SULFATE 2 MG/ML SYR IV PRN ×2 (06:35→14:20)
[2018-03-18 06:40] LABS: ANION GAP 13.7 mmol/L (8-16); BLOOD UREA NITROGEN 28 mg/dL (7-26); BUN/CREATININE RATIO 24 (6-25); CARBON DIOXIDE 24 mmol/L (22-29); CHLORIDE 107 mmol/L (98-107); CREATININE, SERUM 1.17 mg/dL (0.72-1.25); EST GLOMERULAR FILTRATION RATE > 60 ML/MIN (60-); GLUCOSE 123 mg/dL (74-118); POTASSIUM 4.7 mmol/L (3.5-5.1); SODIUM 140 mmol/L (136-145)
[2018-03-18] MEDS: IPRATROPIUM BROMIDE 0.02% 2.5 ML NEB NEB SCH ×3 (07:00→23:00)
[2018-03-18] MEDS: INSULIN LISPRO 100 UNIT/1 ML 3ML VIAL SQ SCH ×4 (07:30→20:23)
[2018-03-18] MEDS: CALCIUM ACETATE 667 MG GELCAP PO SCH ×3 (07:49→16:23)
[2018-03-18] MEDS: SODIUM BICARBONATE 650 MG TAB PO SCH ×2 (08:02→16:23)
[2018-03-18] MEDS: METOPROLOL TARTRATE 25 MG TAB PO SCH ×2 (08:02→16:23)
[2018-03-18] MEDS: AMIODARONE HCL 200 MG TAB PO SCH (08:02)
[2018-03-18] MEDS ORDERED: RIVAROXABAN 20 MG TABLET PO SCH (17:00)
[2018-03-19] VITALS: BP 42/79
[2018-03-19] MEDS: HYDROCODONE/APAP 5MG-325MG TAB PO PRN ×4 (03:20→15:29)
[2018-03-19] MEDS: INSULIN LISPRO 100 UNIT/1 ML 3ML VIAL SQ SCH ×2 (07:30→11:30)
[2018-03-19 08:00] VITALS: BP 129/60
[2018-03-19] MEDS: IPRATROPIUM BROMIDE 0.02% 2.5 ML NEB NEB SCH (08:10)
[2018-03-19] MEDS: CALCIUM ACETATE 667 MG GELCAP PO SCH ×2 (09:00→11:35)
[2018-03-19] MEDS: SODIUM BICARBONATE 650 MG TAB PO SCH (09:28)
[2018-03-19] MEDS: AMIODARONE HCL 200 MG TAB PO SCH (09:28)
[2018-03-19] MEDS: METOPROLOL TARTRATE 25 MG TAB PO SCH (09:28)
[2018-03-19 11:36] VITALS: BP 132/72
[2018-03-19] MEDS ORDERED: AMIODARONE HCL200 MG PO (14:40)
[2018-03-19] MEDS ORDERED: XARELTO10 MG PO (14:40)
== END 2018-03-19 15:32 | disposition home or self-care (01) | DRG 669 ==
LOC: ER 10:48 → ERHOLD 23:07 → IMCU 03-04 14:29
PROVIDERS: ADMIT Internal Medicine Pulmonary Disease; ATTEND Internal Medicine Pulmonary Disease
PROC: 5A1D70Z Performance of Urinary Filtration, Intermittent, Less than 6 Hours Per Day (ICD-10-PCS; principal; 2018-03-03)
PROC: 06HM33Z Insertion of Infusion Device into Right Femoral Vein, Percutaneous Approach (ICD-10-PCS; 2018-03-03)
PROC: 0JH63XZ Insertion of Tunneled Vascular Access Device into Chest Subcutaneous Tissue and Fascia, Percutaneous Approach (ICD-10-PCS; 2018-03-08)
PROC: 02H633Z Insertion of Infusion Device into Right Atrium, Percutaneous Approach (ICD-10-PCS; 2018-03-08)
PROC: 0T5B8ZZ Destruction of Bladder, Via Natural or Artificial Opening Endoscopic (ICD-10-PCS; 2018-03-11)
PROC: 0TBB8ZX Excision of Bladder, Via Natural or Artificial Opening Endoscopic, Diagnostic (ICD-10-PCS; 2018-03-11)
PROC: 0TCB8ZZ Extirpation of Matter from Bladder, Via Natural or Artificial Opening Endoscopic (ICD-10-PCS; 2018-03-11)
PROC: BT101ZZ Fluoroscopy of Bladder using Low Osmolar Contrast (ICD-10-PCS; 2018-03-11)
PROC: 30233N1 Transfusion of Nonautologous Red Blood Cells into Peripheral Vein, Percutaneous Approach (ICD-10-PCS; 2018-03-11)
PROC: 0T9130Z Drainage of Left Kidney with Drainage Device, Percutaneous Approach (ICD-10-PCS; 2018-03-13)
PROC: 0T9030Z Drainage of Right Kidney with Drainage Device, Percutaneous Approach (ICD-10-PCS; 2018-03-13)
PROC: 0JPT3XZ Removal of Tunneled Vascular Access Device from Trunk Subcutaneous Tissue and Fascia, Percutaneous Approach (ICD-10-PCS; 2018-03-15)
PROC: 02PA33Z Removal of Infusion Device from Heart, Percutaneous Approach (ICD-10-PCS; 2018-03-15)
CPT/HCPCS: 36415; 36565; 36589; 50432; 50693; 51700; 71045; 71046; 71250; 74176; 74425; 74430; 74470; 76770; 76942; 77001; 78582; 80048; 80053; 80076; 81001; 82150; 82550; 82553; 82948; 83036; 83605; 83690; 83735; 83880; 84100; 84132; 84436; 84439; 84443; 84479; 84484; 85007; 85025; 85027; 85610; 85730; 86850; 86900; 86920; 87040; 87070; 87086; 87205; 88305; 90962; 93005; 94640; 96372; 96376; 97139; 99285; A9540; A9558; C1769; J0610; J0696; J1100; J1160; J1644; J1940; J2001; J2150; J2185; J2250; J2270; J3370; J7030; J7040; J7799; P9016; Q9958; Q9967

== ENCOUNTER 2018-03-29 21:11 | Emergency (ER) | payer MEDICARE ==
[~2018-03-29] VITALS: Ht 182.9 cm; Wt 121.1 kg
[~2018-03-29 21:11] MED LIST changes: -ALPRAZOLAM0.5 MG PO; -CEFUROXIME500 MG PO; -CENTRUM SPECIA1 EACH PO; -COLACE100 MG PO; -FUROSEMIDE40 MG PO; -LACTULOSE20 GM/30 M PO; -MELATONIN5 M2 PO; -OXYBUTYNIN CHLOR5 MG PO; -SODIUM BICARBO650 MG PO; -SULFAMETHOXAZO1 EAC1 PO; -TYLENOL WITH C1 EACH PO
--- OUTSIDE RECORDS SUMMARY | 2018-03-29 21:13 | XMS REPORT | Continuity of Care Document ---
Author Author [facility] Organization [facility] Address [address] [place] [address] Phone Unavailable Care Team Providers Care Shoe Repairer Apprentice Name Role Phone ALISHA JUDGE PCP Insurance Providers Guarantor Dustin Antunez Address [address] [place] [address] Email [email or web address] Payer [facility] Policy Number [id number] Subscriber's Name Dustin Antunez Relationship 18 Self / Same As Patient Group Name RETIRED Effective Date 17 Payer Medicare A & B Policy Number [id number] Subscriber's Name Dustin Antunez Relationship 18 Self / Same As Patient Group Name RETIRED Effective Date 13 Advance Directives Directive Response Recorded Date/Time Does the patient have an advance directive? No 03/04/18 4:23pm If yes, is advance directive on file with [facility]? No 03/04/18 4:23pm If not on file with [facility] will patient provide a copy? No 03/04/18 4:23pm Do you have a Directive to Physician? No 03/03/18 2:07pm Do you have a Medical Power of Waiter/Waitress Third Class? No 03/03/18 2:07pm Do you have an out of hospital Do Not Resuscitate Order? No 03/03/18 2:07pm Do you have any special needs we should be aware of? No 03/03/18 2:07pm Do you have a support person here with you today? Yes 03/03/18 2:07pm Did patient receive Notice of Privacy Practices? Yes 03/03/18 2:07pm Did patient receive patient rights and responsibilities? Yes 03/03/18 2:07pm Problems Medical Problem Onset Date Status Acute renal failure Unknown Hematuria Unknown Hyperkalemia Unknown Urinary obstruction Unknown Medications Current Home Medications Medication Dose Units Route Directions Days Qty Instructions Start Date Cyanocobalamin (Vitamin B-12) 1,000 Mcg Tab 1,000 Mcg Oral Daily 30 Tab Famotidine (Pepcid) 20 Mg Tablet 20 Mg Oral Daily 60 Tab Insulin Glargine (Lantus 3ML Pen) 100 Units/1 Ml Inj 42 Subcutaneously Qevening Insulin Lispro (Humalog) 100 Unit/1 Ml Cartridge 30 Subcutaneously Three Times A Day Losartan Potassium 25 Mg Tablet 50 Mg Oral Daily Metoprolol Tartrate 25 Mg Tablet 25 Mg Oral Daily Past Home Medications Medication Directions Ordered Status Cetirizine Hcl (Zyrtec) 10 Mg Capsule, 10 Mg Oral Twice A Day Discontinued Meloxicam 7.5 Mg Tablet, 7.5 Mg Oral Daily Discontinued Metformin Hcl 500 Mg Tablet, 500 Mg Oral Daily Discontinued Munday-3 Fatty Acids/Fish Oil (Fish Oil 1,000 Mg Capsule) 1 Each Capsule, 2000 Mg Oral Daily Discontinued Munday-3 Fatty Acids/Fish Oil (Munday 3 Fish Oil Softgel) 1 Each Capsule.dr, 300 Mg Oral Daily Discontinued Pravastatin Sodium 20 Mg Tablet, 20 Mg Oral Bedtime Discontinued Family History Relationship Condition Age at Onset Recorded Date/Time 09 Brother Family history of coronary artery disease Not Recorded 2017 4:08pm 33 Father FHx: bladder cancer Not Recorded 03/04/2018 4:08pm 33 Father Family history of coronary artery disease Not Recorded 03/04/2018 4:08pm 32 Mother Family history of coronary artery disease Not Recorded 03/04/2018 4:08pm 09 Sister Family history of coronary artery disease Not Recorded 03/04/2018 4:08pm Social History Social History Problem Response Recorded Date/Time Onset Date Status Hx Psychiatric Problems No 03/04/2018 4:23pm Not Applicable Not Applicable Hx Eating Disorder No 03/04/2018 4:23pm Not Applicable Not Applicable Hx Substance Use Disorder No 03/04/2018 4:23pm Not Applicable Not Applicable Hx Depression No 03/04/2018 4:23pm Not Applicable Not Applicable Hx Alcohol Use No 03/04/2018 4:23pm Not Applicable Not Applicable Hx Substance Use Treatment No 03/04/2018 4:23pm Not Applicable Not Applicable Hx Physical Abuse No 03/04/2018 4:23pm Not Applicable Not Applicable Smoking Status Start Date Stop Date Never Smoker Hospital Discharge Instructions No hospital discharge instruction information available. Plan of Care Discharge Date 03/19/18 3:32pm Disposition HOME, SELF-CARE Instructions/Education Provided Xiong Catheter Care Prescriptions See Medication Section Additional Instructions/Education CONTINUE DIET AND ACTIVITY TOLERATED FOLLOW UP WITH PRIMARY CARE IN 10 DAYS FOLLOW UP WITH UROLOGY IN 2 WEEKS INSTRUCTED BY IRRIGATE BLADDER NEEDED TO CLEAR OF BLOOD CLOTS RODOLFO HIGGINS Functional Status Query Response Date Recorded FUNCTIONAL STATUS ` March 15, 2018 4:31pm Assistive Devices Straight Cane March 04, 2018 3:00pm Ambulation Ability Independent March 04, 2018 3:00pm Toileting Ability Minimum Assistance March 06, 2018 1:59pm Allergies, Adverse Reactions, Alerts No known allergies. Immunizations No immunization information available. Vital Signs Acute Vital Signs Vital Response Date/Time Temperature (Fahrenheit) 96.2 degrees F (97.6 - 99.5) 03/19/2018 11:36am Pulse Pulse Rate (adult) 63 bpm (60 - 90) 03/19/2018 11:36am Respiratory Rate 18 bpm (12 - 24) 03/19/2018 11:36am Blood Pressure 132/72 mm Hg 03/19/2018 11:36am Height 6 ft 0 in 03/12/2018 7:38am Weight 267.25 lb 03/18/2018 12:33am Body Mass Index 36.2 kg/m^2 03/18/2018 12:33am Results Laboratory Results Test Name Result Units Flags Reference Collection Date/Time Result Date/ Time Comments White Blood Count 12.28 x10e3/uL H 4.8-10.8 03/18/2018 5:50am 2017 6:26am Red Blood Count 3.63 x10e6/uL L 4.3-5.7 03/18/2018 5:50am 03/18/2018 6: 26am Hemoglobin 10.2 g/dL L 14.0-18.0 03/18/2018 5:50am 03/18/2018 6:26am Hematocrit 31.5 % L 38.2-49.6 03/18/2018 5:50am 03/18/2018 6:26am Mean Corpuscular Volume 86.8 fL 81-99 03/18/2018 5:50am 03/18/2018 6: 26am Mean Corpuscular Hemoglobin 28.1 pg 28-32 03/18/2018 5:50am 03/18/2018 6:26am Mean Corpuscular Hemoglobin Concent 32.4 g/dL 31-35 03/18/2018 5:50am 03/18/2018 6:26am Red Cell Distribution Width 13.1 % 11.7-14.4 03/18/2018 5:50am 2017 6:26am Platelet Count 415 x10e3/uL H 140-360 03/18/2018 5:50am 03/18/2018 6: 26am Neutrophils (%) (Auto) 61.7 % 38.7-80.0 03/18/2018 5:50am 03/18/2018 6: 26am Lymphocytes (%) (Auto) 16.6 % L 18.0-39.1 03/18/2018 5:50am 03/18/2018 6 :26am Monocytes (%) (Auto) 9.9 % 4.4-11.3 03/18/2018 5:50am 03/18/2018 6: 26am Eosinophils (%) (Auto) 8.7 % H 0.0-6.0 03/18/2018 5:50am 03/18/2018 6: 26am Basophils (%) (Auto) 1.1 % H 0.0-1.0 03/18/2018 5:50am 03/18/2018 6: 26am IM GRANULOCYTES % 2.0 % H 0.0-1.0 03/18/2018 5:50am 03/18/2018 6:26am Neutrophils # (Auto) 7.6 H 2.1-6.9 03/18/2018 5:50am 03/18/2018 6: 26am Lymphocytes # (Auto) 2.0 1.0-3.2 03/18/2018 5:50am 03/18/2018 6:26am Monocytes # (Auto) 1.2 H 0.2-0.8 03/18/2018 5:50am 03/18/2018 6:26am Eosinophils # (Auto) 1.1 H 0.0-0.4 03/18/2018 5:50am 03/18/2018 6: 26am Basophils # (Auto) 0.1 0.0-0.1 03/18/2018 5:50am 03/18/2018 6:26am Absolute Immature Granulocyte (auto 0.24 x10e3/uL H 0-0.1 03/18/2018 5: 50am 03/18/2018 6:26am Differential Total Cells Counted 100 03/15/2018 5:50am 03/15/2018 7 :36am Neutrophils % (Manual) 66 % 40-74 03/15/2018 5:50am 03/15/2018 7:36am Lymphocytes % (Manual) 17 % L 19-48 03/15/2018 5:50am 03/15/2018 7:36am Monocytes % (Manual) 12 % H 3.4-9.0 03/15/2018 5:50am 03/15/2018 7:36am Eosinophils % (Manual) 4 % 0-7 03/15/2018 5:50am 03/15/2018 7:36am Basophils % (Manual) 1 % 0-1.5 03/15/2018 5:50am 03/15/2018 7:36am Reactive Lymphocytes 2 03/13/2018 5:45am 03/13/2018 7:28am Platelet Estimate ADEQUATE 03/15/2018 5:50am 03/15/2018 7:36am Platelet Morphology Comment NORMAL 03/15/2018 5:50am 03/15/2018 7: 36am Hypochromasia SLIGHT 03/15/2018 5:50am 03/15/2018 7:36am Poikilocytosis SLIGHT 03/12/2018 5:40am 03/12/2018 8:36am Anisocytosis SLIGHT 03/15/2018 5:50am 03/15/2018 7:36am Red Cell Morphology Comment NORMAL 03/15/2018 5:50am 03/15/2018 7: 36am Prothrombin Time 15.1 seconds H 11.9-14.5 03/09/2018 1:00pm 03/09/2018 1 :33pm Prothromb Time International Ratio 1.29 03/09/2018 1:00pm 2017 1:33pm Oral Anticoagulant Therapy INR Values: 1. Low Intensity Therapy 1.5 - 2.0 2. Moderate Intensity Therapy 2.0 - 3.0 3. High Intensity Therapy(1) 2.5 - 3.5 4. High Intensity Therapy(2) 3.0 - 4.0 5. Panic Value INR > 5.0 Activated Partial Thromboplast Time 37.9 seconds H 23.8-35.5 03/09/2018 1 :00pm 03/09/2018 1:33pm Urine Color RED YELLOW 03/03/2018 12:45pm 03/03/2018 1:38pm Urine Clarity OTHER CLEAR 03/03/2018 12:45pm 03/03/2018 1:38pm Urine Specific [place] 1.025 1.010-1.025 03/03/2018 12:45pm 2017 1:38pm Urine pH 7 5 - 7 03/03/2018 12:45pm 03/03/2018 1:38pm Urine Leukocyte Esterase NEGATIVE NEGATIVE 03/03/2018 12:45pm 2017 1:38pm Urine Nitrite NEGATIVE NEGATIVE 03/03/2018 12:45pm 03/03/2018 1:38pm Urine Protein 3+ H NEGATIVE 03/03/2018 12:45pm 03/03/2018 1:38pm Urine Glucose (UA) NEGATIVE NEGATIVE 03/03/2018 12:45pm 03/03/2018 1: 38pm Urine Ketones NEGATIVE NEGATIVE 03/03/2018 12:45pm 03/03/2018 1:38pm Urine Urobilinogen 0.2 mg/dL 0.2 - 1 03/03/2018 12:45pm 03/03/2018 1: 38pm Urine Bilirubin NEGATIVE NEGATIVE 03/03/2018 12:45pm 03/03/2018 1: 38pm Urine Blood 4+ H NEGATIVE 03/03/2018 12:45pm 03/03/2018 1:38pm Urine WBC 0-5 /HPF 0-5 03/03/2018 12:45pm 03/03/2018 1:38pm Urine RBC >50 /HPF H 0-5 03/03/2018 12:45pm 03/03/2018 1:38pm Urine Bacteria NONE /HPF NONE 03/03/2018 12:45pm 03/03/2018 1:38pm Urine Epithelial Cells NONE /LPF NONE 03/03/2018 12:45pm 03/03/2018 1: 38pm Sodium Level 140 mmol/L 136-145 03/18/2018 5:50am 03/18/2018 6:46am Potassium Level 4.7 mmol/L # 3.5-5.1 03/18/2018 5:50am 03/18/2018 6:46am Chloride Level 107 mmol/L 98-107 03/18/2018 5:50am 03/18/2018 6:46am Carbon Dioxide Level 24 mmol/L 22-03/18/2018 5:50am 03/18/2018 6: 46am Anion Gap 13.7 mmol/L 8-16 03/18/2018 5:50am 03/18/2018 6:46am Blood Urea Nitrogen 28 mg/dL H 7-03/18/2018 5:50am 03/18/2018 6:46am Creatinine 1.17 mg/dL 0.72-1.25 03/18/2018 5:50am 03/18/2018 6:46am BUN/Creatinine Ratio 24 6-03/18/2018 5:50am 03/18/2018 6:46am Estimat Glomerular Filtration Rate > 60 ML/MIN 60- 03/18/2018 5:50am 6:46am Ranges were taken from the National Kidney Disease Education Program and the National Kidney Foundation literature. Reference ranges: 60 or greater: Normal 16-59 (for 3 consecutive months): Chronic kidney disease 15 or less: Kidney failure Glucose Level 123 mg/dL H 74-118 03/18/2018 5:50am 03/18/2018 6:46am Calcium Level 9.0 mg/dL 8.4-10.2 03/18/2018 5:50am 03/18/2018 6:46am Bedside Glucose 127 mg/dL H 70-120 03/19/2018 11:39am 03/19/2018 11: 45am Meter ID: [id number] Hemoglobin A1c Percent 5.7 % 4.0-7.0 03/04/2018 6:00am 03/04/2018 2: 26pm Lactic Acid Level 12.1 MG/DL 4.5-19.8 03/10/2018 7:20pm 03/10/2018 7: 54pm Phosphorus Level 8.0 MG/DL H 2.3-4.7 03/10/2018 9:15am 03/10/2018 9: 44am Magnesium Level 1.7 MG/DL 1.3-2.1 03/06/2018 5:50am 03/06/2018 6:41am Total Bilirubin 0.4 mg/dL 0.2-1.2 03/11/2018 5:55am 03/11/2018 6:49am Direct Bilirubin 0.1 mg/dL 0.0-0.5 03/10/2018 7:20pm 03/10/2018 8:14pm Aspartate Amino Transf (AST/SGOT) 15 IU/L 5-34 03/11/2018 5:55am 2017 6:49am Alanine Aminotransferase (ALT/SGPT) 18 IU/L 0-55 03/11/2018 5:55am 6:49am Total Protein 5.9 g/dL L 6.5-8.1 03/11/2018 5:55am 03/11/2018 6:49am Albumin 2.3 g/dL L 3.5-5.0 03/11/2018 5:55am 03/11/2018 6:49am Globulin 3.6 g/dL H 2.3-3.5 03/11/2018 5:55am 03/11/2018 6:49am Albumin/Globulin Ratio 0.6 L 0.8-2.0 03/11/2018 5:55am 03/11/2018 6: 49am Alkaline Phosphatase 73 IU/L 40-150 03/11/2018 5:55am 03/11/2018 6: 49am B-Type Natriuretic Peptide 432.9 pg/mL H 0-100 03/03/2018 2:09pm 2017 3:01pm Creatine Kinase 643 IU/L H 30-200 03/05/2018 10:15am 03/05/2018 12:35pm Creatine Kinase MB 20.20 ng/mL H 0-5.0 03/05/2018 10:15am 03/05/2018 12: 35pm Troponin I 1.412 ng/mL H 0-0.300 03/05/2018 10:15am 03/05/2018 12:35pm Elevated result called to TRISTA ARROYO at 1231 on 03/05/18 by Attila Vee. Amylase Level 27 U/L 25-125 03/10/2018 7:20pm 03/10/2018 7:54pm Lipase 8 U/L 8-78 03/10/2018 7:20pm 03/10/2018 7:54pm Free Thyroxine 1.09 ng/dL 0.9-1.8 03/04/2018 6:00am 03/04/2018 2:48pm Free Thyroxine Index 1.6968 1.4-3.8 03/05/2018 6:00am 03/05/2018 10: 22am Thyroxine (T4) 4.96 ug/dL 4.5-10.9 03/05/2018 6:00am 03/05/2018 10: 22am Triiodothyronine (T3) Uptake 34.21 % 22.5-37.0 03/05/2018 6:00am 2017 10:22am Thyroid Stimulating Hormone (TSH) 1.269 uIU/mL 0.350-4.940 03/05/2018 6: 00am 03/05/2018 10:22am Hepatitis A IgM Antibody Negative 03/03/2018 2:09pm 03/05/2018 12: 06pm Hepatitis B Surface Antigen Negative 03/03/2018 2:09pm 03/05/2018 12:06pm Hepatitis B Core IgM Antibody Negative 03/03/2018 2:09pm 2017 12:06pm Hepatitis C Antibody <0.1 03/03/2018 2:09pm 03/05/2018 12:06pm Reference Range: 0.0 - 0.9 s/co ratio Negative: < 0.8 Indeterminate: 0.8 - 0.9 Positive: > 0.9 The CDC recommends that a positive HCV antibody result be followed up with a HCV Nucleic Acid Amplification test (503211). [facility] [address] [address] Dir: Merrick Soliz MD For inquiries, the physician may contact Branch: [phone] Lab: [phone] Microbiology Results Procedure Source Organism/Result Collection Date/Time Result Date/Time Result Status Blood Culture Blood NO GROWTH AFTER 5 DAYS, FINAL REPORT 03/03/2018 7:00pm 03/08/2018 7:19pm Final Procedures Procedure Status Date Provider(s) Cystoscopy Completed 03/11/18 YUN SHEPHERD MD Ultrasound, renal Active 01/16/18 YUN SHEPHERD MD X-ray of chest, two views Active 03/03/18 MICHELNAWAF Gutiérrez DESIGN ENG Ultrasound, renal Active 03/03/[address] of abdomen and pelvis without contrast Active 03/04/18 HAYLIE SHEPHERD MD X-ray of chest, two views Active 03/10/[address] of abdomen and pelvis without contrast Active 03/10/18 MICAELA RUSSO MD Computed tomography of chest without contrast Active 03/10/18 MICAELA RUSSO MD Echo guide for biopsy Active 03/13/18 HAYLIE SHEPHERD MD Encounters Encounter Location Arrival/Admit Date Discharge/Depart Date Attending Provider Discharged Inpatient [facility] 03/03/18 11:07pm 3:32pm DONTE REY MD Registered Clinic [facility] 01/30/18 7:10am HAYLIE SHEPHERD MD Registered Clinic [facility] 01/16/18 7:27am YUN SHEPHERD MD
[2018-03-29 23:57] VITALS: BP 122/76
== END 2018-03-30 00:12 | disposition home or self-care (01) ==
LOC: ER 21:11
DX: R33.9 Retention of urine, unspecified (principal); N40.1 Benign prostatic hyperplasia with lower urinary tract symptoms
CPT/HCPCS: 51700; 99282

== ENCOUNTER 2018-05-15 06:47 | Inpatient (IN) | payer MEDICARE ==
[2018-05-14 13:34] LABS: BASOPHILS # (AUTO) 0.1 (0.0-0.1); BASOPHILS % 0.4 % (0.0-1.0); EOSINOPHILS # (AUTO) 0.3 (0.0-0.4); EOSINOPHILS % 1.4 % (0.0-6.0); HEMATOCRIT 23.4 % (38.2-49.6); HEMOGLOBIN 7.4 g/dL (14.0-18.0); LYMPHOCYTES % 5.6 % (18.0-39.1); MEAN CORPUSCULAR HGB CONC 31.6 g/dL (31-35); MEAN CORPUSCULAR VOLUME 82.1 fL (81-99); MONOCYTES # (AUTO) 1.1 (0.2-0.8); NEUTROPHILS # (AUTO) 15.6 (2.1-6.9); NEUTROPHILS % 85.8 % (38.7-80.0); PLATELET COUNT 421 x10e3/uL (140-360); RED BLOOD COUNT 2.85 x10e6/uL (4.3-5.7)
[2018-05-14 15:08] LABS: ANION GAP 15.9 mmol/L (8-16); CREATININE, SERUM 2.3 mg/dL (0.72-1.25); POTASSIUM 4.9 mmol/L (3.5-5.1)
[~2018-05-15] VITALS: Ht 182.9 cm; Wt 97.5 kg
[2018-05-15] VITALS (7 sets, daily range): BP systolic 124–136; BP diastolic 58–62
[2018-05-15 03:26] LABS: CALCIUM 9.2 mg/dL (8.4-10.2)
[~2018-05-15 06:47] MED LIST changes: +SODIUM BICARBO650 MG PO; +SULFAMETHOXAZO1 EAC1 PO; +TYLENOL WITH C1 EACH PO
[2018-05-15] MEDS ORDERED: CEFAZOLIN SOD 1 GM VIAL ONE (06:58)
[2018-05-15] MEDS ORDERED: BELLADONNA/OPIUM 30 MG SUPP RC ONE (07:47)
[2018-05-15] MEDS ORDERED: IOPAMIDOL 300MG/ML 50ML INFUS..BTL IV ONE (07:47)
[2018-05-15 07:49] LABS: BASOPHILS # (AUTO) 0.1 (0.0-0.1); BASOPHILS % 0.5 % (0.0-1.0); EOSINOPHILS # (AUTO) 0.2 (0.0-0.4); EOSINOPHILS % 1.4 % (0.0-6.0); HEMATOCRIT 22.6 % (38.2-49.6); HEMOGLOBIN 7.1 g/dL (14.0-18.0); LYMPHOCYTES # (AUTO) 1.2 (1.0-3.2); LYMPHOCYTES % 7.6 % (18.0-39.1); MEAN CORPUSCULAR HEMOGLOBIN 25.7 pg (28-32); MEAN CORPUSCULAR HGB CONC 31.4 g/dL (31-35); MEAN CORPUSCULAR VOLUME 81.9 fL (81-99); MONOCYTES # (AUTO) 1.2 (0.2-0.8); MONOCYTES % 7.7 % (4.4-11.3); NEUTROPHILS # (AUTO) 12.5 (2.1-6.9); NEUTROPHILS % 81.7 % (38.7-80.0); PLATELET COUNT 435 x10e3/uL (140-360); RED BLOOD COUNT 2.76 x10e6/uL (4.3-5.7); RED CELL DISTRIBUTION WIDTH 15.2 % (11.7-14.4)
[2018-05-15] MEDS ORDERED: FENTANYL CITRATE/PF 100MCG/2 ML INJ ONE (07:55)
[2018-05-15 08:59] LABS: ANION GAP 17.5 mmol/L (8-16); CALCIUM 8.7 mg/dL (8.4-10.2); CREATININE, SERUM 1.95 mg/dL (0.72-1.25); POTASSIUM 4.5 mmol/L (3.5-5.1)
[2018-05-15] MEDS ORDERED: SODIUM CHLORIDE 0.9% 250ML 250 ML IV ONE (11:00)
[2018-05-15] MEDS: OXYCODONE/ACETAMINOPHEN 5-325 1 EACH TABLET PO PRN ×2 (11:19→16:37)
--- NOTE | 2018-05-15 13:58 | Diagnostic Imaging Report ---
PROCEDURE: Frontal and lateral views of the chest. COMPARISON: None. INDICATIONS: ANEMIA FINDINGS: Lines/tubes: None. Lungs: The lungs are well inflated. Left basilar atelectasis. Pleura: Small left pleural effusions. Heart and mediastinum: The heart and the mediastinum are normal. Bones: No acute bony abnormality. IMPRESSION: Left pleural effusion with atelectasis. Dictated by: Wilberto Robertson M.D. on 05/15/2018 at 14:03 Electronically approved by: Wilberto Robertson M.D. on 05/15/2018 at 14:03
--- NOTE | 2018-05-15 17:21 | Progress Note ---
DATE: May 15, 2018 SERVICE: Urology. HISTORY OF PRESENT ILLNESS: This is a 67-year-old patient, well known to me for treatment of bilateral distal ureteral stone, TCC of the bladder, and prostate cancer as well as gross hematuria. The patient presented today with anemia of 7.1 grams percent as well as leukocytosis. He had no fever and no chills. In the recent past, he did present with acute renal failure and found to have bilateral distal ureteral obstruction by stones and had placement of universal stents bilaterally, which are blocked. The patient has a Xiong and has significant hematuria as well. The patient presented with leukocytosis. Today, it is 15,300. Myoglobin is 7.1 grams percent. PAST MEDICAL HISTORY: As mentioned earlier. FAMILY HISTORY: Noncontributory. MEDICATIONS: See MAR. PHYSICAL EXAMINATION GENERAL: The patient is alert and oriented. Does not seem to be in acute distress. VITALS: Blood pressure 125/82, pulse 88, temperature 97.6, respirations 18. HEENT: Head is symmetric. Eyes: Normal movement. NECK: No JVD. No masses. CHEST: Clear. HEART: Regular. ABDOMEN: Soft. : Bilateral blocked nephrostomy universal stents. Xiong in place. External genitalia unremarkable. LABORATORY DATA: Hemoglobin 7.1, white count 15,300. Creatinine 1.95, BUN 30. Electrolytes: Sodium 138, potassium 4.5, chloride 101, bicarb 24. IMPRESSION 1. Gross hematuria. 2. Severe anemia. 3. Leukocytosis. 4. Bilateral hydronephrosis. 5. Bilateral ureteral calculi. 6. Carcinoma of the prostate. 7. Transitional-cell carcinoma of the bladder. PLAN: After stabilizing the patient and obtaining medical clearance, we plan to do a cystoscopy. Treat at least 1 side for the stones and change to internal stent as well as resection and maybe remove tumor in the bladder. I will follow with you. Job#: [id number]
[2018-05-15] MEDS ORDERED: OXYCODONE/ACETAMINOPHEN 5-325 1 EACH TABLET PO PRN (18:00)
[2018-05-15] MEDS: CEFEPIME HCL 1 GM VIAL IV SCH (19:44)
[2018-05-15] MEDS: HYDROMORPHONE 2MG/ML 2 MG/ML ML IV PRN (20:25)
[2018-05-15] MEDS ORDERED: SODIUM CHLORIDE 0.9% 250ML 250 ML ONE (21:14)
[2018-05-15] MEDS ORDERED: ACETAMINOPHEN 325 MG TAB PO PRN (22:00)
[2018-05-16] VITALS: BP 119/56
--- NOTE | 2018-05-16 00:39 | Consultation ---
DATE OF CONSULTATION: REASON FOR CONSULTATION: REASON FOR CONSULTATION: UTI and sepsis. HISTORY OF PRESENT ILLNESS: This 67-year-old white gentleman who has history of bladder cancer, history of nephrostomy. The patient has history of prostate cancer, comes in with hematuria, not feeling well. He was evaluated in the emergency room, he was found to have anemia, leukocytosis. Patient was feeling bad with pain. The patient also has history of renal disease. Patient was admitted. Infectious disease was consulted. When I saw the patient, he was just not feeling well. REVIEW OF SYSTEMS: HEENT: Negative. PULMONARY: Negative. CARDIAC: Negative. : Negative. SKIN: There is no rash. PHYSICAL EXAMINATION: GENERAL: He is currently alert, oriented, does not seem to be in acute distress. VITAL SIGNS: Stable, currently afebrile. HEENT: Anicteric. NECK: Supple. CHEST: Clear. HEART: S1 and S2. No murmur. ABDOMEN: Soft. : The urine was hematuria. IMPRESSION: 1. Concerned about urinary tract infection. Will put the patient on cefepime 1 g q.12h. Will obtain urine culture, blood culture. 2. Anemia. . 3. Bladder cancer, history of prostate cancer. Per urology. 4. Will follow with you. Thank you. Job#: [id number]
[2018-05-16] MEDS: HYDROMORPHONE 2MG/ML 2 MG/ML ML IV PRN ×6 (03:34→21:21)
[2018-05-16 04:00] VITALS: BP 132/60
[2018-05-16 05:24] LABS: BASOPHILS # (AUTO) 0.1 (0.0-0.1); BASOPHILS % 0.5 % (0.0-1.0); EOSINOPHILS # (AUTO) 0.4 (0.0-0.4); EOSINOPHILS % 3.3 % (0.0-6.0); HEMATOCRIT 26.1 % (38.2-49.6); HEMOGLOBIN 8.1 g/dL (14.0-18.0); LYMPHOCYTES # (AUTO) 1.5 (1.0-3.2); LYMPHOCYTES % 11.4 % (18.0-39.1); MEAN CORPUSCULAR HEMOGLOBIN 26.4 pg (28-32); MONOCYTES # (AUTO) 1.6 (0.2-0.8); MONOCYTES % 11.9 % (4.4-11.3); NEUTROPHILS # (AUTO) 9.6 (2.1-6.9); NEUTROPHILS % 71.9 % (38.7-80.0); PLATELET COUNT 402 x10e3/uL (140-360); RED BLOOD COUNT 3.07 x10e6/uL (4.3-5.7); RED CELL DISTRIBUTION WIDTH 14.9 % (11.7-14.4)
[2018-05-16 06:03] LABS: CALCIUM 8.9 mg/dL (8.4-10.2); CREATININE, SERUM 1.67 mg/dL (0.72-1.25)
[2018-05-16 08:00] LABS: EOSINOPHILS % (MANUAL) 7 % (0-7); LYMPHOCYTES % (MANUAL) 12 % (19-48); METAMYELOCYTES % (MANUAL) 1 % (0-0); MONOCYTES % (MANUAL) 8 % (3.4-9.0); NEUTROPHILS % (MANUAL) 71 % (40-74)
[2018-05-16 08:01] LABS: HYPOCHROMASIA SLIGHT; PLATELET ESTIMATE SLIGHTLY INCREASED
[2018-05-16 08:02] LABS: ANISOCYTOSIS SLIGHT; PLATELET MORPHOLOGY COMMENT FEW LARGE; POIKILOCYTOSIS SLIGHT; RBC MORPHOLOGY COMMENT NORMAL
[2018-05-16 08:18] VITALS: BP 142/66
[2018-05-16] MEDS: CEFEPIME HCL 1 GM VIAL IV SCH ×2 (08:18→21:16)
[2018-05-16 08:48] VITALS: BP 142/66
[2018-05-16] MEDS ORDERED: SODIUM CHLORIDE 0.9% 250ML 250 ML IV ONE (09:00)
[2018-05-16] MEDS ORDERED: ACETAMINOPHEN 325 MG TAB PO PRN (09:00)
[2018-05-16 13:12] VITALS: BP 114/58
[2018-05-16] MEDS: FUROSEMIDE INJ 10 MG/ML 2 ML VIAL IV PRN ×2 (13:30→17:32)
[2018-05-16 20:00] VITALS: BP 132/64
[2018-05-17] VITALS (8 sets, daily range): BP systolic 144–158; BP diastolic 67–76
[2018-05-17] MEDS: HYDROMORPHONE 2MG/ML 2 MG/ML ML IV PRN ×6 (00:12→20:59)
[2018-05-17 05:16] LABS: BASOPHILS # (AUTO) 0.1 (0.0-0.1); BASOPHILS % 0.5 % (0.0-1.0); EOSINOPHILS # (AUTO) 0.4 (0.0-0.4); EOSINOPHILS % 3.1 % (0.0-6.0); HEMATOCRIT 32.6 % (38.2-49.6); HEMOGLOBIN 10.6 g/dL (14.0-18.0); LYMPHOCYTES # (AUTO) 1.6 (1.0-3.2); LYMPHOCYTES % 13.7 % (18.0-39.1); MEAN CORPUSCULAR HEMOGLOBIN 26.9 pg (28-32); MEAN CORPUSCULAR HGB CONC 32.5 g/dL (31-35); MEAN CORPUSCULAR VOLUME 82.7 fL (81-99); MONOCYTES # (AUTO) 1.2 (0.2-0.8); MONOCYTES % 9.8 % (4.4-11.3); NEUTROPHILS # (AUTO) 8.5 (2.1-6.9); NEUTROPHILS % 71.6 % (38.7-80.0); PLATELET COUNT 419 x10e3/uL (140-360); RED BLOOD COUNT 3.94 x10e6/uL (4.3-5.7); RED CELL DISTRIBUTION WIDTH 15.2 % (11.7-14.4)
[2018-05-17 05:54] LABS: ANION GAP 15.7 mmol/L (8-16); CREATININE, SERUM 1.52 mg/dL (0.72-1.25); POTASSIUM 4.7 mmol/L (3.5-5.1)
[2018-05-17] MEDS: CEFEPIME HCL 1 GM VIAL IV SCH ×2 (08:53→19:55)
[2018-05-17] MEDS ORDERED: KETAMINE HCL INJ 50 MG/ML 10 ML VIAL ONE (11:05)
[2018-05-17] MEDS ORDERED: MIDAZOLAM HCL 2 MG/2 ML VIAL ONE (11:05)
[2018-05-17] MEDS ORDERED: FENTANYL CITRATE/PF 100MCG/2 ML INJ ONE ×2 (11:05→18:22)
[2018-05-17] MEDS ORDERED: DEXAMETHASONE SOD PHOS INJ 4 MG/ML VIAL ONE (11:11)
[2018-05-17] MEDS ORDERED: PROPOFOL IV EMULSION 10 MG/ML 20 ML VIAL ONE (11:11)
[2018-05-17] MEDS ORDERED: SEVOFLURANE INHAL SOLN 250 ML PEN BTL ONE (11:11)
[2018-05-17] MEDS ORDERED: LIDOCAINE HCL 2% LOCAL INJ 5 ML SDV VIAL INJ ONE (11:11)
[2018-05-17] MEDS ORDERED: IOPAMIDOL 300MG/ML 50ML INFUS..BTL IV ONE (16:24)
[2018-05-17] MEDS: METOPROLOL TARTRATE 25 MG TAB PO SCH (17:00)
[2018-05-17] MEDS ORDERED: BELLADONNA/OPIUM 30 MG SUPP RC ONE (17:45)
--- NOTE | 2018-05-17 22:28 | Operative Report ---
DATE OF PROCEDURE: May 17, 2018 SERVICE: Urology PREOPERATIVE DIAGNOSES 1. Gross hematuria. 2. Anemia. 3. Bilateral hydronephrosis. 4. Bilateral ureteral universal nephrostomy stent. 5. Cancer of prostate. 6. of bladder. 7. Leukocytosis. POSTOPERATIVE DIAGNOSES 1. Gross hematuria. 2. Anemia. 3. Bilateral hydronephrosis. 4. Bilateral ureteral universal nephrostomy stent. 5. Cancer of prostate. 6. of bladder. 7. Leukocytosis. OPERATIONS PERFORMED 1. Cystoscopy and evacuation of multiple blood clots from the bladder. 2. Left nephrostogram under fluoroscopic control, not related to the contralateral side. 3. Removal of left nephrostomy tube under fluoroscopic control. 4. Cystoscopy and left retrograde pyelograms. 5. Placement of double-J stent. A 7-Gibraltarian 26-cm long to the left side. 6. Right nephrostogram under fluoroscopic control not related to the contralateral side. 7. Removal of nephrostomy from the right side under fluoroscopic control. 8. Right retrograde pyelograms under fluoroscopic control. 9. Placement of double-J stent 7-Gibraltarian 26-cm long to the right side. 10. Transurethral resection of bladder tumor. 11. Interpretation of x-ray. Radiologist not present. 12. Supervision of fluoroscopy. Radiologist not present. ESTIMATOR AND DRAFTER SUPERVISOR: None. ANESTHESIA: General. CLINICAL INDICATION NOTE: This is a 67-year-old patient has bilateral universal stent for hydronephrosis and obstructed ureters by stones distally bilaterally. Patient has history of failed prostate, had radiotherapy for that and has gross hematuria. He also had biopsy of bladder that revealed transitional cell cancer high grade. After preparation for the procedure including correction of the anemia with blood product and elevating the hemoglobin to about 10, patient was brought for surgery. Procedure plan was discussed with the patient and he accepts it. Potential benefit and complication discussed, explained, and accepted. DESCRIPTION OF PROCEDURE AND FINDINGS: After the proper level of anesthesia was achieved, the patient had a cystoscopy and removal of multiple bladder clots. Following this, left nephrostogram was done demonstrating the nephrostomy and universal stent in the proper position. Percutaneous nephrostomy was pulled out after passing a wire through it. Following this, open-ended catheter inserted and retrograde pyelograms were done under fluoroscopic control to the left side. Minimal hydro was noticed. A double-J stent 7-Gibraltarian 26-cm long was properly positioned on the left side. Following this, the same procedure was repeated on the contralateral side. Interpretation of x-ray was done by me. Supervision of fluoroscopy was done by me. After completion of that part of the procedure, there were double-J stent on both sides. Both proper position was verified by endoscopy and x-ray. Following this, resectoscope was inserted and the bladder appeared to be extremely irregular, edematous, and area that may represent tumor. Resectoscope was used and resection of the tissue was done. Following this, any visible bleeding points were carefully coagulated. This was followed by placement of a 24 3-way Xiong catheter and placement of a B and O suppository. Patient tolerated the procedure well, was transferred in satisfactory condition to recovery room. Job#: [id number] [id number]
[2018-05-18] VITALS (7 sets, daily range): BP systolic 125–151; BP diastolic 59–73
[2018-05-18] MEDS: HYDROMORPHONE 2MG/ML 2 MG/ML ML IV PRN ×6 (00:03→23:34)
[2018-05-18 05:33] LABS: BASOPHILS % 0.2 % (0.0-1.0); HEMATOCRIT 32.6 % (38.2-49.6); HEMOGLOBIN 10.4 g/dL (14.0-18.0); LYMPHOCYTES % 7.9 % (18.0-39.1); MEAN CORPUSCULAR HEMOGLOBIN 27.1 pg (28-32); MEAN CORPUSCULAR HGB CONC 31.9 g/dL (31-35); MEAN CORPUSCULAR VOLUME 84.9 fL (81-99); MONOCYTES # (AUTO) 0.6 (0.2-0.8); MONOCYTES % 4.9 % (4.4-11.3); NEUTROPHILS # (AUTO) 10.5 (2.1-6.9); NEUTROPHILS % 86.1 % (38.7-80.0); PLATELET COUNT 425 x10e3/uL (140-360); RED BLOOD COUNT 3.84 x10e6/uL (4.3-5.7); RED CELL DISTRIBUTION WIDTH 15.1 % (11.7-14.4)
[2018-05-18] MEDS: CEFEPIME HCL 1 GM VIAL IV SCH ×2 (08:30→20:00)
[2018-05-18] MEDS: METOPROLOL TARTRATE 25 MG TAB PO SCH ×2 (08:43→20:33)
[2018-05-18] MEDS: AMIODARONE HCL 200 MG TAB PO SCH (08:43)
[2018-05-18] MEDS ORDERED: HYDROMORPHONE 1MG/1ML INJ ONE ×2 (15:20→18:49)
[2018-05-19] VITALS (7 sets, daily range): BP systolic 119–149; BP diastolic 57–70
[2018-05-19] MEDS: HYDROMORPHONE 2MG/ML 2 MG/ML ML IV PRN ×6 (02:35→19:43)
[2018-05-19] MEDS: CEFEPIME HCL 1 GM VIAL IV SCH ×2 (07:30→19:43)
[2018-05-19] MEDS: METOPROLOL TARTRATE 25 MG TAB PO SCH ×2 (09:25→21:09)
[2018-05-19] MEDS: AMIODARONE HCL 200 MG TAB PO SCH (09:25)
[2018-05-20] VITALS: BP 136/63
[2018-05-20] MEDS: HYDROMORPHONE 2MG/ML 2 MG/ML ML IV PRN ×3 (00:46→07:34)
--- NOTE | 2018-05-20 00:52 | Progress Note ---
DATE: May 19, 2018 SUBJECTIVE: Mr. Antunez doing well. There are no new complaints. PHYSICAL EXAMINATION: GENERAL: He is alert and oriented, does not seem to be in acute distress. VITAL SIGNS: Stable, afebrile. HEENT: Does not appear icteric. NECK: Supple. CHEST: Clear. HEART: S1 and S2. No S3, S4, or murmur. ABDOMEN: Soft. Bowel sounds present. No tenderness. EXTREMITIES: No edema. IMPRESSION: 1. Urinary tract infection, doing well. 2. Anemia. 3. Bilateral hydronephrosis. 4. Gross hematuria. 5. Bilateral ureteral universal nephrostomy stent. 6. Cancer of prostate. From infectious disease point of view, he is currently on cefepime, can change to oral Ceftin. When he first came in, he was pseudomonas, but then he grew coagulase-negative staphylococcus. the blood culture is negative and clinically he is doing well, stable. Discharge home when okay with urology with antibiotic. Job#: [id number]
[2018-05-20 00:54] VITALS: BP 136/63
[2018-05-20 04:00] VITALS: BP 140/90
[2018-05-20 08:13] VITALS: BP 126/69
[2018-05-20 08:40] VITALS: BP 126/69
[2018-05-20] MEDS: AMIODARONE HCL 200 MG TAB PO SCH (08:42)
[2018-05-20] MEDS: CEFEPIME HCL 1 GM VIAL IV SCH (08:42)
[2018-05-20] MEDS: METOPROLOL TARTRATE 25 MG TAB PO SCH (08:43)
[2018-05-20] MEDS ORDERED: ACETAMINOPHEN/CODEINE 300MG - 30MG TAB PO PRN (09:30)
[2018-05-20] MEDS ORDERED: CEFUROXIME500 MG PO (10:32)
[2018-05-20 11:22] VITALS: BP 121/63
== END 2018-05-20 12:01 | disposition home or self-care (01) | DRG 669 ==
LOC: OR 06:47 → PACU V 08:26 → MED/SURG 09:59
PROVIDERS: ADMIT Internal Medicine; ATTEND Internal Medicine
PROC: 0T788DZ Dilation of Bilateral Ureters with Intraluminal Device, Via Natural or Artificial Opening Endoscopic (ICD-10-PCS; principal; 2018-05-15)
PROC: 0TBB8ZZ Excision of Bladder, Via Natural or Artificial Opening Endoscopic (ICD-10-PCS; 2018-05-15)
PROC: BT141ZZ Fluoroscopy of Kidneys, Ureters and Bladder using Low Osmolar Contrast (ICD-10-PCS; 2018-05-15)
PROC: 0TCB8ZZ Extirpation of Matter from Bladder, Via Natural or Artificial Opening Endoscopic (ICD-10-PCS; 2018-05-15)
PROC: 0TP5X0Z Removal of Drainage Device from Kidney, External Approach (ICD-10-PCS; 2018-05-15)
PROC: 30233N1 Transfusion of Nonautologous Red Blood Cells into Peripheral Vein, Percutaneous Approach (ICD-10-PCS; 2018-05-17)
DX: C67.9 Malignant neoplasm of bladder, unspecified (principal); N39.0 Urinary tract infection, site not specified; N17.9 Acute kidney failure, unspecified; D62 Acute posthemorrhagic anemia; N13.2 Hydronephrosis with renal and ureteral calculous obstruction; N99.524 Stenosis of incontinent stoma of urinary tract; R31.0 Gross hematuria; C61 Malignant neoplasm of prostate; D72.829 Elevated white blood cell count, unspecified; N32.89 Other specified disorders of bladder; I25.10 Atherosclerotic heart disease of native coronary artery without angina pectoris; Z95.1 Presence of aortocoronary bypass graft; I25.2 Old myocardial infarction; I12.9 Hypertensive chronic kidney disease with stage 1 through stage 4 chronic kidney disease, or unspecified chronic kidney disease; N18.9 Chronic kidney disease, unspecified
CPT/HCPCS: 36415; 36430; 71046; 74420; 80048; 82948; 85025; 86850; 86900; 86920; 87040; 87086; 87186; 88305; 88307; 88342; C2617; J0690; J0692; J1100; J1170; J1940; J2001; J2250; J7050; P9016

== ENCOUNTER 2018-06-03 10:45 | Inpatient (IN) | payer MEDICARE ==
[2018-06-03] VITALS (30 sets, daily range): BP systolic 73–113; BP diastolic 40–64
[~2018-06-03] VITALS: Ht 182.9 cm; Wt 97.5 kg
[~2018-06-03 10:45] MED LIST changes: +CEFUROXIME500 MG PO
[2018-06-03] MEDS ORDERED: SODIUM CHLORIDE 0.9% 250ML 250 ML IV ONE (12:15)
--- NOTE | 2018-06-03 12:41 | Diagnostic Imaging Report ---
PROCEDURE: A single AP view of the chest. COMPARISON: 05/15/18 INDICATIONS: AMS/SHORTNESS OF BREATH FINDINGS: Lines/tubes: None. Lungs and pleura: The lungs are well inflated. Pulmonary vascular congestion, mild interstitial edema, and small bilateral pleural effusions. No visible pneumothorax. Heart and mediastinum: The cardiomediastinal silhouette is enlarged. Median sternotomy wires. Bones: No acute bony abnormality. IMPRESSION: Enlarged cardiomediastinal silhouette, pulmonary vascular congestion, small bilateral pleural effusions, and mild interstitial edema. Dictated by: Anselmo Baldwin M.D. on 06/03/2018 at 12:47 Electronically approved by: Anselmo Baldwin M.D. on 06/03/2018 at 12:47
[2018-06-03 13:07] LABS: BASOPHILS # (AUTO) 0.1 (0.0-0.1); BASOPHILS % 0.3 % (0.0-1.0); EOSINOPHILS # (AUTO) 0.1 (0.0-0.4); EOSINOPHILS % 0.5 % (0.0-6.0); HEMATOCRIT 28.9 % (38.2-49.6); HEMOGLOBIN 9.7 g/dL (14.0-18.0); LYMPHOCYTES # (AUTO) 1.1 (1.0-3.2); LYMPHOCYTES % 4.9 % (18.0-39.1); MEAN CORPUSCULAR HEMOGLOBIN 26.6 pg (28-32); MEAN CORPUSCULAR HGB CONC 33.6 g/dL (31-35); MEAN CORPUSCULAR VOLUME 79.2 fL (81-99); MONOCYTES # (AUTO) 1.3 (0.2-0.8); MONOCYTES % 5.6 % (4.4-11.3); NEUTROPHILS # (AUTO) 20.4 (2.1-6.9); NEUTROPHILS % 87.2 % (38.7-80.0); PLATELET COUNT 496 x10e3/uL (140-360); RED BLOOD COUNT 3.65 x10e6/uL (4.3-5.7); RED CELL DISTRIBUTION WIDTH 16.1 % (11.7-14.4)
[2018-06-03 13:10] LABS: INR 1.39
[2018-06-03 13:11] LABS: PARTIAL THROMBOPLASTIN TIME 38.8 seconds (23.8-35.5)
[2018-06-03 13:24] LABS: CLARITY,URINE SL CLOUDY (CLEAR); COLOR,URINE YELLOW (YELLOW); LEUKOCYTE ESTERASE ,URINE 2+ (NEGATIVE); NITRITE,URINE NEGATIVE (NEGATIVE); PROTEIN,URINE DIPSTICK TRACE (NEGATIVE)
[2018-06-03 13:25] LABS: BILIRUBIN,URINE NEGATIVE (NEGATIVE); KETONES,URINE NEGATIVE (NEGATIVE); URINE UROBILINOGEN 0.2 mg/dL (0.2 - 1)
[2018-06-03 13:25] LABS: CREATINE KINASE MB 0.7 ng/mL (0-5.0)
[2018-06-03 13:26] LABS: ALBUMIN 1.8 g/dL (3.5-5.0); ALBUMIN/GLOBULIN RATIO 0.4 (0.8-2.0); ANION GAP 26.6 mmol/L (8-16); CALCIUM 7.3 mg/dL (8.4-10.2); CREATININE, SERUM 13.61 mg/dL (0.72-1.25); POTASSIUM 4.6 mmol/L (3.5-5.1)
[2018-06-03 13:28] LABS: B-TYPE NATRIURETIC PEPTIDE2 1954.6 pg/mL (0-100)
[2018-06-03 13:32] LABS: BACTERIA,URINE MODERATE /HPF; EPITHELIAL CELLS,URINE FEW /LPF; RBC,URINE 21-50 /HPF (0-5); WBC,URINE (MAN) 21-50 /HPF (0-5)
[2018-06-03] MEDS ORDERED: SODIUM CHLORIDE 0.9% 1000ML 1,000 ML IV SCH ×2 (14:15)
[2018-06-03] MEDS ORDERED: ASPIRIN 81 MG CHEW TAB PO ONE (14:15)
[2018-06-03] MEDS ORDERED: MEROPENEM 1GRAM 1 GM in SODIUM CHLORIDE 0.9% 100 ML 100 ML IV SCH (14:15)
[2018-06-03] MEDS ORDERED: MEROPENEM 1 GM VIAL IV SCH ×2 (14:17→22:00)
[2018-06-03] MEDS ORDERED: VANCOMYCIN 1GM/NS 250 ML 250 ML IV ONE (17:45)
[2018-06-03] MEDS ORDERED: LIDOCAINE JELLY 2% 10ML URO-JET TOP ONE (18:00)
--- NOTE | 2018-06-03 18:07 | Consultation ---
DATE OF CONSULTATION: June 03, 2018 RENAL CONSULT HISTORY OF PRESENT ILLNESS: Mr. Sree Antunez is a 67-year-old gentleman known to me from prior admission. Recently had stents placed. Has history of prostate and bladder cancer with history of hematuria. Presented with at least 4 or 5 days of failure to thrive, weakness, frequent falls. He has not been eating or drinking according to his . Looks very dry and dehydrated with extremely dry mucosa and skin. He looks quite depressed, teary-eyed. He has currently been admitted into the ICU. Renal has been consulted because of significantly elevated white count of 23.39, hemoglobin 9.7. Sodium 132, potassium 4.6, bicarbonate 23, BUN 160, creatinine 13.6, with a BNP of 1954. Patient denies any fever and chills, admits to nausea but denies any vomiting, denies any chest pains. CURRENT MEDICATIONS: Patient is on IV normal saline at 125 mL an hour, which I am going to stop at this point in time. He is on aspirin. Meropenem 1 g IV q.8, which I am going to adjust. I am going to change it to 500 mg q.8. SOCIAL HISTORY: Does not smoke or drink. PAST HISTORY: Significant for history of chronic kidney disease and above. PHYSICAL EXAMINATION GENERAL: Patient appears awake, alert, in no apparent distress. VITAL SIGNS: Blood pressure of 99/59, pulse rate 67, afebrile. HEAD AND NECK: Oral mucosa dry. Neck veins flat. LUNGS: Harsh vesicular breath sounds, relatively clear, no rales. HEART: S1 and S2 audible. ABDOMEN: Soft, distended, nontender. LOWER EXTREMITIES: No edema. IMPRESSION/PLAN 1. Acute kidney injury with significantly elevated white count. Blood and urine cultures have to be sent, not sent yet. IV meropenem has been started. Appears significantly azotemic with acute kidney injury, possibly ATN. 2. Must rule out underlying hydronephrosis. He has bilateral ureteral stents. Will get a stat kidney ultrasound. Start IV normal saline. Hydrate patient. Would like to use D5 half, but patient already has hyponatremia. 3. Will be careful on IV hydration. No overt evidence of congestive heart failure. In fact, he appears significantly dehydrated. 4. Will have the nurses place a Xiong catheter, a dialysis catheter later on for dialysis. Discussed with RN. Please see orders. Job#: [id number] EV
--- NOTE | 2018-06-03 18:08 | Diagnostic Imaging Report ---
EXAM: Renal Ultrasound INDICATION: \S\acute renal insuff. \[id number] \S\[id number] COMPARISON: Renal ultrasound dated 03/03/2018 TECHNIQUE: Transverse and longitudinal images of the kidneys and bladder were obtained. FINDINGS: Right Kidney: Size: 12.9 cm Echogenicity: Normal Parenchymal thickness: Normal Collecting system: Mild hydronephrosis Stones: 0.9 cm echogenic focus in the right renal pelvis, could represent a calculus. Cyst/Mass: 1.8 x 1.5 x 1.4 cm inferior pole cyst Left Kidney: Size: 13.8 cm Echogenicity: Normal Parenchymal thickness: Normal Collecting system: Mild hydronephrosis Stones: Echogenic foci within left renal pelvis, measuring up to 0.9 cm. Cyst/Mass: None Bladder: Echogenic tubular structure in the bladder, could represent a stent. There is bladder wall thickening. Prostate measures 3.5 x 2.5 x 3.7 cm, not enlarged. IMPRESSION: Bilateral mild hydronephrosis. Bilateral echogenic foci within renal pelvises, likely calculi. Bladder wall thickening. Partially seen tubular structure within bladder, could represent distal tip of a stent. Signed by: Dr. Anselmo Baldwin MD on 06/03/2018 6:05 PM
[2018-06-03] MEDS: SODIUM CHLORIDE 0.9% 1000ML 1,000 ML IV SCH (18:45)
--- NOTE | 2018-06-03 19:00 | Consultation ---
DATE OF CONSULTATION: June 03, 2018 CARDIOLOGY CONSULTATION CLINICAL HISTORY: This is a 67-year-old white man known to me from previous evaluations referred by Dr. Jl Mendez for cardiovascular evaluation in the setting of sepsis and altered mental status. This patient is known to have coronary artery disease. He had a stent implanted in the proximal ramus artery in December of 2014. He is status post single vessel bypass surgery to the right coronary artery. There is a history of mild carotid artery stenosis and mild aortic stenosis. There is also a history of intermittent atrial fibrillation most recently maintained on amiodarone in a sinus rhythm. He was hospitalized recently at [facility] with severe acute renal failure requiring a nephrology tube bilaterally, which remarkably made his creatinine return back to normal. Subsequently, creatinine went up again. He developed hyperkalemia. I saw him in the office on May 22, 2018, at which time his potassium was elevated. He was treated with Kayexalate. He had no fever at that time. Two days prior to admission, he started having a fever. Had become altered mental status and confused easily. He was finally brought to the emergency room where he is being treated for sepsis. PAST MEDICAL HISTORY: Remarkable for previous ejection fraction in the range of 65% to 70%, aortic restenosis. Had a 3.5 meter per second velocity consistent with a ijqy-fk-xlsm aortic valve gradient of 49 mmHg. MEDICATIONS: Previously included: 1. Amiodarone 100 mg p.o. daily. 2. Metoprolol succinate 25 mg daily. 3. Nitroglycerin p.r.n. 4. Sodium bicarbonate for acidosis. 5. Tylenol No. 3 for chronic pain. 6. Colace. 7. Kayexalate. PAST SURGICAL HISTORY: Coronary bypass surgery and bilateral nephrology. FAMILY HISTORY: Father had bladder cancer. Mother had pacemaker. Paternal grandfather had a stroke and myocardial infarction. PERSONAL/SOCIAL HISTORY: Denies smoking or drinking. ALLERGIES: NONE KNOWN. REVIEW OF SYSTEMS: Negative. PHYSICAL EXAMINATION GENERAL: He is alert and coherent. Appears to be comfortable. CARDIAC: Jugular veins were not distended. S1 and S2 were regular and somewhat slow. There is a 2/6 systolic murmur. LUNGS: Clear. ABDOMEN: Soft. Bowel sounds present. EXTREMITIES: Show no cyanosis, clubbing or edema. LABORATORY STUDIES: Electrocardiogram shows sinus rhythm at 63 beats per minute, nonspecific ST-T wave changes and prolonged QT. Chest x-ray showed cardiomegaly, pulmonary vascular congestion, bilateral pleural effusion. The sodium is 132, potassium 4.6, bicarb 23, BUN is 160, creatinine 13.6. CK is 48, CK-MB 0.7. Albumin 1.8. Urinalysis showed 21-50 wbcs and rbcs. INR was 1.39. White count is 23,000, hemoglobin 9.7 and platelet count of 496,000. IMPRESSION 1. Urosepsis. 2. Acute renal failure probably due to urinary obstruction. 3. History of urethral stents. 4. Anemia. 5. History of severe hyperkalemia. 6. History of severe acidosis. 7. History of atrial fibrillation, now in sinus rhythm on low-dose amiodarone. 8. Slightly prolonged QT. 9. Status post ramus artery stent in December 2014. 10. Ejection fractions 65% to 70%. 11. Moderate aortic stenosis. Aortic velocity 3.5 meters per second with [id number] aortic valve gradient 49 mmHg. 12. Carotid artery disease, mild on the left side with a velocity of 1.3 meters per second. 13. Status post coronary artery bypass surgery, single vessel to the right common artery. 14. Hypertension. 15. Hyperlipidemia. 16. Moderate pulmonic regurgitation. 17. Diabetes. 18. History of prostate cancer and bladder cancer treated in the past with radiation. RECOMMENDATION: Consider removing urology stents. Consider repeat nephrostomy bilaterally. Antibiotics. Dialysis if needed. Job#: [id number] RI cc:JL MENDEZ MD
--- NOTE | 2018-06-03 20:06 | Consultation ---
DATE OF CONSULTATION: June 03, 2018 REASON FOR CONSULTATION: UTI, altered mental status and sepsis. HISTORY OF PRESENT ILLNESS: This patient is a 67-year-old gentleman known to me from prior admission. The patient has a history of bladder cancer and history of prostate cancer. He was here for the UTI. He was given oral antibiotic for 2 weeks upon discharge, and he was doing okay. The thinks he has been slowly getting worse overall. He finished the antibiotic and started to have pain in the abdomen and not feeling well. Patient came to the emergency room where he was evaluated on June 03 and admitted. He is currently in the intensive care unit. The patient is just feeling weak all over, not feeling well. Some suprapubic discomfort. The patient felt feverish, but there is no fever documentation. PAST MEDICAL HISTORY: Diabetes mellitus, hypertension, kidney stones, end-stage renal disease on hemodialysis, bladder cancer and prostate cancer. PAST SURGICAL HISTORY: CABG. He also had a Xiong catheter and stent. ALLERGIES: NKA. SOCIAL HISTORY: There is no smoking, drug abuse or alcohol abuse. FAMILY HISTORY: Hypertension. Father had bladder cancer. Mother had a pacemaker. REVIEW OF SYSTEMS GENERAL: He is generally weak. Does not seem to be in acute distress. HEENT: There is no headache, visual changes or hearing changes. GI: There is no nausea, no vomiting and no diarrhea. He is not making enough urine. The patient has a history of coronary artery disease and history of congestive heart failure. The patient was admitted and was found to have acute renal failure. He already has a Xiong catheter in place, and there is more than 1 liter of urine. HOME MEDICATIONS: He is on amiodarone, nitroglycerin and Colace. LABORATORY DATA: Urine cultures and blood cultures are still pending. White count on admission 23.39, hemoglobin 9.7, hematocrit 28, platelets 496. Sodium 132, potassium 4.6, creatinine 13.6. PHYSICAL EXAMINATION GENERAL: He is currently alert, does not seem to be in acute distress. VITALS: Stable. Temperature 98.4, heart rate 67, blood pressure 99/59. HEENT: Not icteric. Normocephalic. NECK: Supple. No JVD. No lymphadenopathy. No thyromegaly. CHEST: Clear bilaterally. HEART: S1 and S2, no murmur. ABDOMEN: Soft. IMPRESSION: I think the patient is septic with urinary tract infection secondary to obstruction. Agree with meropenem 500 daily. Will give 1 dose of vancomycin. Blood cultures and urine cultures obtained. Recheck CBC. Recheck chem panel. Urology is following. Nephrology is following. Further recommendations to follow. Job#: [id number]
[2018-06-03 21:33] LABS: CREATINE KINASE MB 0.8 ng/mL (0-5.0)
[2018-06-03] MEDS ORDERED: MEROPENEM 500 MG VIAL IV SCH (22:00)
[2018-06-03] MEDS ORDERED: LIDOCAINE HCL 1% LOCAL INJ 20 ML VIAL ONE (22:04)
--- NOTE | 2018-06-03 22:13 | Consultation ---
DATE OF CONSULTATION: June 03, 2018 CRITICAL CARE CONSULTATION REASON FOR CONSULTATION: ICU management. HPI: Mr. Antunez is a 67-year-old male who presented to the emergency room with the complaint of generalized weakness and difficulty walking. Patient was sent by Dr. Bass from his office. His O2 sat was 82%. He was weak. He was recently diagnosed with bladder cancer and prostate cancer. He was at [facility] in February 2018 and at that time he required nephrostomy tube and management by urology. In April 2018, patient underwent cystoscopy with evacuation of multiple clots and nephrostomy was removed. He is feeling a little better now. IN the emergency room, his white count was 23,000 with hemoglobin 9.7. Platelets 496,000 and he was in renal failure with creatinine of 13 and BUN 160. He presented with similar scenario last time with worsening renal failure and was admitted to our service. He is severely azotemic now as well. He denies any chest pain, nausea or vomiting. REVIEW OF SYSTEMS: GENERAL: Denies any fever or chills. HEAD: Denies any head trauma. ENT: Denies any earache. CVS: Denies any chest pain. RESPIRATORY: Denies any shortness of breath. GI: Denies any nausea or vomiting. Rest of the review systems is negative except as in history of present illness. PAST MEDICAL HISTORY: Prostate surgery in 2004 at [facility], history of prostate cancer, history of renal failure, coronary artery coronary, atrial fibrillation. PAST SURGICAL HISTORY: CABG, bilateral nephrostomy tube placement and also has history of prostate cancer. FAMILY AND SOCIAL HISTORY: Does not smoke and does not drink. Denies any family history of heart disease or cancer. PHYSICAL EXAMINATION: VITALS: Temperature 97.0, pulse of 61, blood pressure 81/51, respiratory rate 18, O2 sat is 100% on 2 liters. HEENT: Head atraumatic and normocephalic, extremely dry. Oral mucosa dry. NECK: Supple. CHEST: Clear to auscultation bilaterally. HEART: S1 and S2 audible. ABDOMEN: Soft. : He has a Xiong catheter that initially drained 800 mL, now purulent urine. Renal ultrasound was done in the emergency room that showed bilateral mild hydronephrosis, bilateral echogenic foci per renal services. Chest x-ray is showing small effusion. White count of 23,000. Chemistry with sodium 132. Potassium 4.6. BUN 163, creatinine 13.61. BNP 1954. ASSESSMENT AND PLAN: Mr. Antunez is a 67-year-old male who presented with acute kidney injury and dehydration. CURRENT PROBLEMS: 1. Acute kidney injury. 2. Severe dehydration. 3. History of prostate cancer and previous admission here for which he underwent nephrostomy tube placement. 4. History of coronary artery disease. PLAN: 1. Nephrology has been consulted. Patient is on IV hydration. 2. Will need central line placement. 3. Vasopressors. Remains hypotensive. 4. The patient is likely septic due to urinary tract infection. 5. IV antibiotics per infectious disease recommendation. 6. Keep the patient in ICU. Oxygen as needed to keep the O2 sat more than or equal to 92%. Critical care time: I spent 45 minutes. Job#: [id number]
--- NOTE | 2018-06-03 22:19 | Consultation ---
DATE OF CONSULTATION: June 03, 2018 HISTORY OF PRESENT ILLNESS: This is a 67-year-old patient who is well known to me, who was admitted through the emergency room for some altered mental status and recurrent falls. The patient has complicated urology history of cancer of the prostate, was treated with radiotherapy. He did have episodes of significant radiation gross bleeding. Has bilateral double J stents for obstructing stones in both distal ureters. 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 The patient was admitted with significant deterioration of the renal function with creatinine of 13.6 and BUN 160. PAST MEDICAL HISTORY: In addition to what I have mentioned, he has also history of chronic kidney disease with acute exacerbation. REVIEW OF SYSTEMS: Twelve systems reviewed. PHYSICAL EXAMINATION: GENERAL: The patient is alert times 2. Does not seem to be in acute distress at the present time. VITALS: Blood pressure 100/60, pulse 68, respirations 18, temperature 98. HEENT: Head is symmetric. Eyes: Normal movement. NECK: No JVD or mass. CHEST: Clear. HEART: Regular. ABDOMEN: Soft. No palpable masses. Minimally distended. EXTERNAL GENITALIA: Unremarkable. LABORATORY DATA: Creatinine 13.61, BUN 160, sodium 132, potassium 4.6, chloride 87, bicarb 23. Hemoglobin 9.7, white count 23.39. Urinalysis: 21 to 50 white blood cells, 21 to 50 red blood cells per high power field. On renal ultrasound, there is bilateral mild hydronephrosis, bilateral possible calculi. Bladder wall is quite thick. IMPRESSION: 1. Carcinoma of the bladder, invasive. 2. Carcinoma of the prostate. 3. Renal failure, [id number]-[id number]. 4. Bilateral ureterolithiasis. 5. Bilateral double J stents. 6. Hematuria. 7. Leukocytosis. 8. Possible sepsis. PLAN: Will follow up with you. Recommend placement of a Xiong catheter. In the future, the patient may need cystectomy, however, not at his current medical condition. I will follow with you. Job#: [id number] [employer]
[2018-06-03] MEDS ORDERED: SODIUM CHLORIDE 0.9% 1000ML 1,000 ML IV ONE (23:45)
[2018-06-04] VITALS (78 sets, daily range): BP systolic 87–141; BP diastolic 39–91
[2018-06-04] MEDS ORDERED: COLACE100 MG PO (03:40)
[2018-06-04] MEDS ORDERED: CENTRUM SPECIA1 EACH PO (03:40)
[2018-06-04] MEDS ORDERED: ALPRAZOLAM0.5 MG PO (03:40)
[2018-06-04] MEDS: SODIUM CHLORIDE 0.9% 1000ML 1,000 ML IV SCH ×2 (03:49→14:15)
[2018-06-04 05:26] LABS: BASOPHILS % 0.3 % (0.0-1.0); EOSINOPHILS # (AUTO) 0.6 (0.0-0.4); HEMATOCRIT 26.7 % (38.2-49.6); HEMOGLOBIN 8.6 g/dL (14.0-18.0); LYMPHOCYTES # (AUTO) 0.8 (1.0-3.2); LYMPHOCYTES % 5.4 % (18.0-39.1); MEAN CORPUSCULAR HEMOGLOBIN 26.1 pg (28-32); MEAN CORPUSCULAR HGB CONC 32.2 g/dL (31-35); MEAN CORPUSCULAR VOLUME 81.2 fL (81-99); MONOCYTES # (AUTO) 0.9 (0.2-0.8); MONOCYTES % 6.5 % (4.4-11.3); NEUTROPHILS # (AUTO) 11.8 (2.1-6.9); NEUTROPHILS % 82.6 % (38.7-80.0); PLATELET COUNT 466 x10e3/uL (140-360); RED BLOOD COUNT 3.29 x10e6/uL (4.3-5.7); RED CELL DISTRIBUTION WIDTH 16.1 % (11.7-14.4)
[2018-06-04 05:58] LABS: ALBUMIN 1.7 g/dL (3.5-5.0); ALBUMIN/GLOBULIN RATIO 0.4 (0.8-2.0); ANION GAP 21.6 mmol/L (8-16); CALCIUM 7.2 mg/dL (8.4-10.2); CREATININE, SERUM 8.42 mg/dL (0.72-1.25); POTASSIUM 3.6 mmol/L (3.5-5.1)
[2018-06-04 06:39] LABS: CREATINE KINASE MB 0.7 ng/mL (0-5.0)
--- NOTE | 2018-06-04 09:10 | Diagnostic Imaging Report ---
PROCEDURE:US GUIDANCE FOR VASCULAR ACCESS COMPARISON:None. INDICATIONS:rt ijv hd trialysis FINDINGS:Patent right internal jugular vein, evidenced by compressibility. CONCLUSION:Successful ultrasound guidance for right internal jugular venous access for purposes of a temporary hemodialysis catheter placement, reported separately. Dictated by: Rashel Kurtz M.D. on 06/04/2018 at 7:40 Electronically approved by: Rashel Kurtz M.D. on 06/04/2018 at 7:40
--- NOTE | 2018-06-04 09:10 | Diagnostic Imaging Report ---
PROCEDURE:NON-TUNNELLED CVC CATH PLACMNT COMPARISON:Chest radiograph 06/03/2018. Preprocedure diagnosis: Acute kidney injury, sepsis Post procedure diagnosis: Acute kidney injury, sepsis COMPLICATIONS: No immediate Blood products administered: None Specimens: None Implants/graft: 13 Erit[place]an, 15 cm triple-lumen high flow central venous catheter Sedation/anesthesia: None the patient's heart rate and pulse oximetry were continuously monitored by the accompanying ICU nurse. Blood pressure was monitored at 5 minute intervals. Condition at completion of procedure: Guarded Disposition: Return ICU BLOOD LOSS: Minimal PROCEDURE: Informed consent was obtained and documented in the medical record. The patient was placed in the supine position. Preliminary sonographic evaluation of the right cervical region confirm patency of the internal jugular vein, evidence by compressibility. The right neck was then prepped and draped in the standard sterile fashion. 1% lidocaine was infiltrated into the skin and subcutaneous tissues for local anesthesia. Then under continuous sonographic guidance, an 18 gauge single wall needle was used to access the right internal jugular vein. A permanent sonographic image was stored in the medical record. A 0.035 inch J-wire was then advanced centrally into the inferior vena cava under fluoroscopic guidance. The needle was removed and the tract was dilated. A 13 E[place]rean, 15 cm triple-lumen high flow central venous catheter was then advanced over the wire to full depth. The wire was removed and the catheter tip was positioned at the superior cavoatrial junction. Each lumen was tested and showed adequate bidirectional flow. The catheter was flushed with sterile saline, and secured to the skin with monofilament nylon suture, and covered with a sterile dressing. The patient tolerated the procedure well without immediate complication. Findings: Patent right internal jugular vein. CONCLUSION: Successful placement of a 13 E[place]rean, 15 cm triple-lumen high flow central venous catheter (Trialysis catheter) by a right internal jugular approach. Dictated by: Rashel Kurtz M.D. on 06/04/2018 at 7:39 Electronically approved by: Rashel Kurtz M.D. on 06/04/2018 at 7:39
[2018-06-04] MEDS ORDERED: LACTULOSE SYRUP 20 GM/30 ML UDC PO ONE (11:45)
[2018-06-04] MEDS: MEROPENEM 500 MG VIAL IV SCH (14:15)
[2018-06-04] MEDS: VANCOMYCIN 1GM/NS 250 ML 250 ML IV SCH (21:20)
[2018-06-04] MEDS: MELATONIN 5 MG TABLET PO SCH (21:20)
[2018-06-05] VITALS (26 sets, daily range): BP systolic 114–151; BP diastolic 55–81
[2018-06-05] MEDS: SODIUM CHLORIDE 0.9% 1000ML 1,000 ML IV SCH ×2 (02:12→12:29)
[2018-06-05 05:03] LABS: BASOPHILS % 0.1 % (0.0-1.0); EOSINOPHILS # (AUTO) 0.1 (0.0-0.4); EOSINOPHILS % 0.9 % (0.0-6.0); HEMATOCRIT 27.3 % (38.2-49.6); HEMOGLOBIN 8.4 g/dL (14.0-18.0); LYMPHOCYTES # (AUTO) 0.9 (1.0-3.2); LYMPHOCYTES % 6.5 % (18.0-39.1); MEAN CORPUSCULAR HEMOGLOBIN 25.5 pg (28-32); MEAN CORPUSCULAR HGB CONC 30.8 g/dL (31-35); MONOCYTES # (AUTO) 0.8 (0.2-0.8); MONOCYTES % 5.7 % (4.4-11.3); NEUTROPHILS # (AUTO) 11.3 (2.1-6.9); NEUTROPHILS % 84.4 % (38.7-80.0); PLATELET COUNT 528 x10e3/uL (140-360); RED BLOOD COUNT 3.29 x10e6/uL (4.3-5.7)
[2018-06-05 05:36] LABS: ANION GAP 18.1 mmol/L (8-16); CALCIUM 7.2 mg/dL (8.4-10.2); POTASSIUM 3.1 mmol/L (3.5-5.1)
[2018-06-05 05:51] LABS: CREATININE, SERUM 2.71 mg/dL (0.72-1.25)
--- NOTE | 2018-06-05 06:01 | Diagnostic Imaging Report ---
EXAM: ABDOMEN-1VIEW (KUB), supine and erect INDICATION: Lower abdominal pain COMPARISON: None FINDINGS: LINES/TUBES: Bilateral internal nephroureteral stents appear in place. Xiong catheter projects over the pelvis. BOWEL PATTERN: No evidence for obstruction. SOFT TISSUES: No abnormal calcifications. LUNG BASES: Bibasilar atelectasis. BONES: No acute findings. IMPRESSION: Bilateral internal nephroureteral stents appear in place. No calculi seen by x-ray. Signed by: Dr. Monika Baez M.D. on 06/05/2018 5:58 AM
[2018-06-05 07:38] LABS: ANISOCYTOSIS SLIGHT; HYPOCHROMASIA SLIGHT; LYMPHOCYTES % (MANUAL) 8 % (19-48); METAMYELOCYTES % (MANUAL) 1 % (0-0); MONOCYTES % (MANUAL) 5 % (3.4-9.0); MYELOCYTES % (MANUAL) 1 % (0-0); NEUTROPHILS % (MANUAL) 85 % (40-74); OVALOCYTES FEW; PLATELET ESTIMATE SLIGHTLY INCREASED; PLATELET MORPHOLOGY COMMENT NORMAL; RBC MORPHOLOGY COMMENT NORMAL
[2018-06-05] MEDS ORDERED: ACETAMINOPHEN/CODEINE 300MG - 30MG TAB PO PRN (09:45)
[2018-06-05] MEDS ORDERED: POTASSIUM CHLORIDE 20MEQ/100ML 200 ML IV ONE (11:30)
[2018-06-05] MEDS: DEXTROSE 5% 1,000 ML IV SCH ×2 (12:24→22:00)
[2018-06-05] MEDS: MEROPENEM 500 MG VIAL IV SCH (14:58)
[2018-06-05] MEDS: ACETAMINOPHEN/CODEINE 300MG - 30MG TAB PO PRN (15:29)
[2018-06-05] MEDS: HYDROMORPHONE 2MG/ML 2 MG/ML ML IV PRN ×2 (18:15→22:25)
[2018-06-05] MEDS: VANCOMYCIN 1GM/NS 250 ML 250 ML IV SCH (20:00)
[2018-06-05] MEDS: MELATONIN 5 MG TABLET PO SCH (21:00)
[2018-06-06] VITALS (26 sets, daily range): BP systolic 103–143; BP diastolic 56–92
[2018-06-06] MEDS: HYDROMORPHONE 2MG/ML 2 MG/ML ML IV PRN ×5 (02:54→23:31)
[2018-06-06 05:21] LABS: ALANINE AMINOTRANSFERASE 20 IU/L (0-55); ALBUMIN 1.8 g/dL (3.5-5.0); ALBUMIN/GLOBULIN RATIO 0.5 (0.8-2.0); ALKALINE PHOSPHATASE 154 IU/L (40-150); ANION GAP 12.7 mmol/L (8-16); BLOOD UREA NITROGEN 44 mg/dL (7-26); BUN/CREATININE RATIO 37 (6-25); CALCIUM 7.5 mg/dL (8.4-10.2); CARBON DIOXIDE 26 mmol/L (22-29); CHLORIDE 109 mmol/L (98-107); CREATININE, SERUM 1.19 mg/dL (0.72-1.25); EST GLOMERULAR FILTRATION RATE > 60 ML/MIN (60-); GLUCOSE 173 mg/dL (74-118); POTASSIUM 3.7 mmol/L (3.5-5.1); SODIUM 144 mmol/L (136-145)
[2018-06-06] MEDS: ACETAMINOPHEN/CODEINE 300MG - 30MG TAB PO PRN ×4 (10:30→21:34)
[2018-06-06] MEDS: DEXTROSE 5% 1,000 ML IV SCH ×3 (13:04→20:14)
[2018-06-06] MEDS: MEROPENEM 500 MG VIAL IV SCH (14:09)
[2018-06-06] MEDS: VANCOMYCIN 1GM/NS 250 ML 250 ML IV SCH (20:14)
[2018-06-06] MEDS: MELATONIN 5 MG TABLET PO SCH ×2 (20:14→20:19)
[2018-06-07] VITALS (20 sets, daily range): BP systolic 103–148; BP diastolic 62–94
[2018-06-07] MEDS: ACETAMINOPHEN/CODEINE 300MG - 30MG TAB PO PRN ×3 (01:48→21:10)
[2018-06-07 04:48] LABS: BASOPHILS % 0.3 % (0.0-1.0); EOSINOPHILS # (AUTO) 0.7 (0.0-0.4); LYMPHOCYTES # (AUTO) 1.3 (1.0-3.2); MONOCYTES # (AUTO) 0.8 (0.2-0.8)
[2018-06-07 05:05] LABS: ALANINE AMINOTRANSFERASE 27 IU/L (0-55); ALBUMIN 1.8 g/dL (3.5-5.0); ALBUMIN/GLOBULIN RATIO 0.5 (0.8-2.0); ALKALINE PHOSPHATASE 148 IU/L (40-150); ANION GAP 14.8 mmol/L (8-16); BLOOD UREA NITROGEN 29 mg/dL (7-26); BUN/CREATININE RATIO 34 (6-25); CALCIUM 7.5 mg/dL (8.4-10.2); CARBON DIOXIDE 24 mmol/L (22-29); CHLORIDE 107 mmol/L (98-107); CREATININE, SERUM 0.85 mg/dL (0.72-1.25); EST GLOMERULAR FILTRATION RATE > 60 ML/MIN (60-); GLUCOSE 149 mg/dL (74-118); POTASSIUM 3.8 mmol/L (3.5-5.1); SODIUM 142 mmol/L (136-145)
[2018-06-07 07:12] LABS: EOSINOPHILS % 4.6 % (0.0-6.0); HEMATOCRIT 27.4 % (38.2-49.6); HEMOGLOBIN 8.4 g/dL (14.0-18.0); LYMPHOCYTES % 8.3 % (18.0-39.1); MEAN CORPUSCULAR HEMOGLOBIN 26.3 pg (28-32); MEAN CORPUSCULAR HGB CONC 30.7 g/dL (31-35); MEAN CORPUSCULAR VOLUME 85.6 fL (81-99); MONOCYTES % 4.8 % (4.4-11.3); NEUTROPHILS # (AUTO) 12.7 (2.1-6.9); NEUTROPHILS % 79.4 % (38.7-80.0); PLATELET COUNT 475 x10e3/uL (140-360); RED CELL DISTRIBUTION WIDTH 15.9 % (11.7-14.4)
[2018-06-07] MEDS: HYDROMORPHONE 2MG/ML 2 MG/ML ML IV PRN ×4 (07:50→23:20)
[2018-06-07] MEDS: DEXTROSE 5% 1,000 ML IV SCH (09:01)
[2018-06-07] MEDS ORDERED: LACTULOSE SYRUP 20 GM/30 ML UDC PO PRN (10:00)
[2018-06-07] MEDS ORDERED: ALBUMIN 25% 12.5GM 0.25 GM/ML BTL IV ONE (10:15)
[2018-06-07] MEDS ORDERED: ALBUMIN 25% 25GM 100 ML IV ONE (10:30)
[2018-06-07] MEDS: MEROPENEM 500 MG VIAL IV SCH (14:00)
[2018-06-07] MEDS ORDERED: SODIUM CHLORIDE 0.9% 250ML 250 ML ONE (19:49)
[2018-06-07] MEDS: VANCOMYCIN 1GM/NS 250 ML 250 ML IV SCH (20:00)
[2018-06-07] MEDS: MELATONIN 5 MG TABLET PO SCH (21:00)
[2018-06-08] VITALS (7 sets, daily range): BP systolic 134–163; BP diastolic 63–75
[2018-06-08] MEDS: ACETAMINOPHEN/CODEINE 300MG - 30MG TAB PO PRN ×3 (02:45→11:05)
[2018-06-08] MEDS: HYDROMORPHONE 2MG/ML 2 MG/ML ML IV PRN ×5 (03:46→22:20)
[2018-06-08 05:52] LABS: BASOPHILS # (AUTO) 0.1 (0.0-0.1); BASOPHILS % 0.3 % (0.0-1.0); EOSINOPHILS # (AUTO) 0.5 (0.0-0.4); EOSINOPHILS % 2.8 % (0.0-6.0); HEMATOCRIT 26.4 % (38.2-49.6); HEMOGLOBIN 8.1 g/dL (14.0-18.0); LYMPHOCYTES # (AUTO) 1.4 (1.0-3.2); LYMPHOCYTES % 7.9 % (18.0-39.1); MEAN CORPUSCULAR HEMOGLOBIN 26.1 pg (28-32); MEAN CORPUSCULAR HGB CONC 30.7 g/dL (31-35); MEAN CORPUSCULAR VOLUME 85.2 fL (81-99); MONOCYTES # (AUTO) 0.8 (0.2-0.8); MONOCYTES % 4.3 % (4.4-11.3); NEUTROPHILS # (AUTO) 14.9 (2.1-6.9); NEUTROPHILS % 82.9 % (38.7-80.0); PLATELET COUNT 434 x10e3/uL (140-360); RED CELL DISTRIBUTION WIDTH 15.9 % (11.7-14.4)
[2018-06-08 06:07] LABS: ALANINE AMINOTRANSFERASE 19 IU/L (0-55); ALBUMIN 2.2 g/dL (3.5-5.0); ALBUMIN/GLOBULIN RATIO 0.7 (0.8-2.0); ALKALINE PHOSPHATASE 135 IU/L (40-150); ANION GAP 14.7 mmol/L (8-16); BLOOD UREA NITROGEN 18 mg/dL (7-26); BUN/CREATININE RATIO 23 (6-25); CALCIUM 7.8 mg/dL (8.4-10.2); CARBON DIOXIDE 24 mmol/L (22-29); CHLORIDE 108 mmol/L (98-107); CREATININE, SERUM 0.77 mg/dL (0.72-1.25); EST GLOMERULAR FILTRATION RATE > 60 ML/MIN (60-); GLUCOSE 117 mg/dL (74-118); POTASSIUM 3.7 mmol/L (3.5-5.1); SODIUM 143 mmol/L (136-145)
[2018-06-08] MEDS: MEROPENEM 500 MG VIAL IV SCH (14:41)
[2018-06-08] MEDS: HYDROCODONE/APAP 10MG-325MG TAB PO PRN ×2 (15:20→19:30)
[2018-06-08] MEDS: VANCOMYCIN 1GM/NS 250 ML 250 ML IV SCH (20:00)
[2018-06-08] MEDS: METOPROLOL TARTRATE 25 MG TAB PO SCH (20:42)
[2018-06-08] MEDS: MELATONIN 5 MG TABLET PO SCH (20:43)
[2018-06-09] VITALS (7 sets, daily range): BP systolic 116–161; BP diastolic 58–72
[2018-06-09] MEDS: HYDROCODONE/APAP 10MG-325MG TAB PO PRN ×4 (01:17→17:35)
[2018-06-09] MEDS: HYDROMORPHONE 2MG/ML 2 MG/ML ML IV PRN ×6 (04:00→22:45)
[2018-06-09] MEDS ORDERED: METOPROLOL TARTRATE 25 MG TAB PO SCH (09:00)
[2018-06-09] MEDS: METOPROLOL TARTRATE 25 MG TAB PO SCH (09:34)
[2018-06-09] MEDS: MEROPENEM 500 MG VIAL IV SCH (14:10)
[2018-06-09] MEDS: ENOXAPARIN SODIUM INJ 100 MG/ML SYR SC SCH (16:58)
[2018-06-09] MEDS: VANCOMYCIN 1GM/NS 250 ML 250 ML IV SCH (21:00)
[2018-06-09] MEDS: MELATONIN 5 MG TABLET PO SCH (21:00)
[2018-06-10] VITALS (7 sets, daily range): BP systolic 111–143; BP diastolic 67–78
[2018-06-10] MEDS: HYDROMORPHONE 2MG/ML 2 MG/ML ML IV PRN ×6 (01:45→20:51)
[2018-06-10] MEDS: ENOXAPARIN SODIUM INJ 100 MG/ML SYR SC SCH ×2 (03:30→16:19)
[2018-06-10] MEDS: HYDROCODONE/APAP 10MG-325MG TAB PO PRN ×4 (03:30→21:55)
[2018-06-10] MEDS: METOPROLOL TARTRATE 25 MG TAB PO SCH (08:49)
[2018-06-10] MEDS: MEROPENEM 500 MG VIAL IV SCH (14:00)
[2018-06-10] MEDS: VANCOMYCIN 1GM/NS 250 ML 250 ML IV SCH (20:50)
[2018-06-10] MEDS: MELATONIN 5 MG TABLET PO SCH (20:50)
[2018-06-11] VITALS (7 sets, daily range): BP systolic 117–148; BP diastolic 69–86
[2018-06-11] MEDS: HYDROMORPHONE 2MG/ML 2 MG/ML ML IV PRN ×6 (00:15→21:02)
[2018-06-11] MEDS: HYDROCODONE/APAP 10MG-325MG TAB PO PRN ×6 (01:57→22:44)
[2018-06-11] MEDS: ENOXAPARIN SODIUM INJ 100 MG/ML SYR SC SCH ×2 (04:46→16:30)
[2018-06-11 06:00] LABS: BASOPHILS # (AUTO) 0.1 (0.0-0.1); BASOPHILS % 0.4 % (0.0-1.0); EOSINOPHILS # (AUTO) 0.4 (0.0-0.4); EOSINOPHILS % 2.7 % (0.0-6.0); HEMATOCRIT 27.5 % (38.2-49.6); HEMOGLOBIN 8.5 g/dL (14.0-18.0); LYMPHOCYTES # (AUTO) 1.7 (1.0-3.2); LYMPHOCYTES % 10.4 % (18.0-39.1); MEAN CORPUSCULAR HEMOGLOBIN 26.1 pg (28-32); MEAN CORPUSCULAR HGB CONC 30.9 g/dL (31-35); MEAN CORPUSCULAR VOLUME 84.4 fL (81-99); MONOCYTES # (AUTO) 0.8 (0.2-0.8); MONOCYTES % 5.1 % (4.4-11.3); NEUTROPHILS # (AUTO) 12.9 (2.1-6.9); PLATELET COUNT 429 x10e3/uL (140-360); RED BLOOD COUNT 3.26 x10e6/uL (4.3-5.7); RED CELL DISTRIBUTION WIDTH 16.5 % (11.7-14.4)
[2018-06-11 06:23] LABS: ANION GAP 14.6 mmol/L (8-16); BLOOD UREA NITROGEN 25 mg/dL (7-26); BUN/CREATININE RATIO 28 (6-25); CALCIUM 8.3 mg/dL (8.4-10.2); CARBON DIOXIDE 22 mmol/L (22-29); CHLORIDE 104 mmol/L (98-107); EST GLOMERULAR FILTRATION RATE > 60 ML/MIN (60-); GLUCOSE 94 mg/dL (74-118); POTASSIUM 3.6 mmol/L (3.5-5.1); SODIUM 137 mmol/L (136-145)
[2018-06-11] MEDS: METOPROLOL TARTRATE 25 MG TAB PO SCH (09:00)
[2018-06-11] MEDS: MELATONIN 5 MG TABLET PO SCH (21:00)
[2018-06-12] VITALS: BP 142/71
[2018-06-12] MEDS: HYDROMORPHONE 2MG/ML 2 MG/ML ML IV PRN ×6 (00:30→22:16)
[2018-06-12] MEDS: HYDROCODONE/APAP 10MG-325MG TAB PO PRN ×5 (02:55→20:10)
[2018-06-12 04:00] VITALS: BP 121/95
[2018-06-12] MEDS: ENOXAPARIN SODIUM INJ 100 MG/ML SYR SC SCH ×2 (04:30→17:36)
[2018-06-12 07:15] VITALS: BP 137/80
[2018-06-12 08:00] VITALS: BP 137/80
[2018-06-12] MEDS: METOPROLOL TARTRATE 25 MG TAB PO SCH (09:00)
[2018-06-12 12:00] VITALS: BP 134/81
--- NOTE | 2018-06-12 15:21 | Diagnostic Imaging Report ---
PROCEDURE:ABDOMINAL ULTRASOUND COMPARISON:CT of the abdomen and pelvis from 03/12/2018. Renal ultrasound from 06/03/2018 INDICATIONS:POSSIBLE CIRRHOSIS TECHNIQUE: Gomez-scale and color sonographic images were obtained of the abdomen in transverse and sagittal planes. FINDINGS: Liver: 18.9 in length in right midclavicular line. Increased echogenicity. No masses. Main portal vein: 0.8, hepatopetal flow Gallbladder: Echogenic stones are present in the gallbladder. There is a small amount of pericholecystic fluid. Common Bile Duct: 0.7 cm, mildly dilated, with internal debris Sonographic Izquierdo's sign: Negative Right kidney: 11.7 cm in length Left kidney: 12.2 cm in length No hydronephrosis, stones, solid masses in the kidneys Spleen: 10.2 cm in length. Pancreas: Not visualized due to overlying bowel gas Inferior vena cava: Patent Aorta: Not well-visualized due to overlying bowel gas. Ascites: None CONCLUSION: 1. Hepatomegaly and diffuse hepatic steatosis. 2. No definite sonographic findings of cirrhosis. No ascites or splenomegaly. 3. Cholelithiasis with a small amount of pericholecystic fluid. This is nonspecific. There is no gallbladder wall thickening or sonographic Izquierdo's sign. 4. Borderline dilatation of the common bile duct with echogenic debris within the duct. If there is concern for choledocholithiasis, consider MRCP of the abdomen. Dictated by: Casper Nieves M.D. on 06/12/2018 at 15:26 Electronically approved by: Casper Nieves M.D. on 06/12/2018 at 15:27
[2018-06-12] MEDS: FUROSEMIDE 40 MG TAB PO SCH (16:20)
[2018-06-12] MEDS: WARFARIN SOD 3 MG TAB PO SCH (17:36)
[2018-06-12 20:00] VITALS: BP 139/65
[2018-06-12] MEDS: MELATONIN 5 MG TABLET PO SCH (22:05)
[2018-06-13] VITALS (8 sets, daily range): BP systolic 118–140; BP diastolic 61–80
[2018-06-13] MEDS: HYDROCODONE/APAP 10MG-325MG TAB PO PRN ×6 (00:29→21:55)
[2018-06-13] MEDS: HYDROMORPHONE 2MG/ML 2 MG/ML ML IV PRN ×6 (03:22→22:56)
[2018-06-13] MEDS: ENOXAPARIN SODIUM INJ 100 MG/ML SYR SC SCH ×2 (04:07→17:36)
[2018-06-13 06:04] LABS: INR 1.3; PROTHROMBIN TIME 15.2 seconds (11.9-14.5)
[2018-06-13] MEDS: FUROSEMIDE 40 MG TAB PO SCH (09:46)
[2018-06-13] MEDS: METOPROLOL TARTRATE 25 MG TAB PO SCH (09:46)
[2018-06-13] MEDS: WARFARIN SOD 3 MG TAB PO SCH (17:36)
--- NOTE | 2018-06-13 18:33 | Diagnostic Imaging Report ---
EXAM: Transabdominal and Transvaginal Pelvic Ultrasound INDICATION: \S\BLADDER/ PROSTATE CA COMPARISON: Abdominal ultrasound 06/12/2018 TECHNIQUE: Grayscale transverse and sagittal transabdominal images were obtained of the pelvis. FINDINGS: Exam limited as the bladder was not full despite clamping the Xiong catheter and oral intake of water. Decompressed bladder with Xiong catheter in place. No free fluid/ascites is identified. Prostate could not be visualized. IMPRESSION: No free fluid or ascites is identified. Bladder is decompressed, with Xiong catheter in place. Signed by: Dr. Kalin Hutchison M.D. on 06/13/2018 6:30 PM
[2018-06-13] MEDS: MELATONIN 5 MG TABLET PO SCH (22:53)
[2018-06-14] VITALS (7 sets, daily range): BP systolic 111–128; BP diastolic 63–86
[2018-06-14] MEDS: HYDROCODONE/APAP 10MG-325MG TAB PO PRN ×4 (01:48→18:10)
[2018-06-14] MEDS: ENOXAPARIN SODIUM INJ 100 MG/ML SYR SC SCH ×2 (03:47→17:24)
[2018-06-14] MEDS: HYDROMORPHONE 2MG/ML 2 MG/ML ML IV PRN ×6 (03:47→22:57)
[2018-06-14 06:05] LABS: INR 1.68; PROTHROMBIN TIME 18.6 seconds (11.9-14.5)
[2018-06-14] MEDS: METOPROLOL TARTRATE 25 MG TAB PO SCH (07:57)
[2018-06-14] MEDS: FUROSEMIDE 40 MG TAB PO SCH (07:57)
[2018-06-14] MEDS: WARFARIN SOD 3 MG TAB PO SCH (17:24)
[2018-06-14] MEDS: MELATONIN 5 MG TABLET PO SCH (21:22)
[2018-06-15] VITALS (8 sets, daily range): BP systolic 115–147; BP diastolic 59–74
[2018-06-15] MEDS: HYDROMORPHONE 2MG/ML 2 MG/ML ML IV PRN ×3 (02:11→11:30)
[2018-06-15] MEDS: ENOXAPARIN SODIUM INJ 100 MG/ML SYR SC SCH ×2 (04:54→17:36)
[2018-06-15] MEDS: HYDROCODONE/APAP 10MG-325MG TAB PO PRN ×5 (04:55→22:32)
[2018-06-15 05:50] LABS: INR 2.07; PROTHROMBIN TIME 21.9 seconds (11.9-14.5)
[2018-06-15 05:59] LABS: ALANINE AMINOTRANSFERASE 10 IU/L (0-55); ALBUMIN 2.2 g/dL (3.5-5.0); ALBUMIN/GLOBULIN RATIO 0.6 (0.8-2.0); ALKALINE PHOSPHATASE 124 IU/L (40-150); ANION GAP 16.9 mmol/L (8-16); BLOOD UREA NITROGEN 25 mg/dL (7-26); BUN/CREATININE RATIO 25 (6-25); CALCIUM 8.3 mg/dL (8.4-10.2); CARBON DIOXIDE 21 mmol/L (22-29); CHLORIDE 100 mmol/L (98-107); EST GLOMERULAR FILTRATION RATE > 60 ML/MIN (60-); GLUCOSE 129 mg/dL (74-118); POTASSIUM 3.9 mmol/L (3.5-5.1); SODIUM 134 mmol/L (136-145)
[2018-06-15] MEDS: FUROSEMIDE 40 MG TAB PO SCH (08:03)
[2018-06-15] MEDS: METOPROLOL TARTRATE 25 MG TAB PO SCH (08:03)
[2018-06-15] MEDS: WARFARIN SOD 3 MG TAB PO SCH (17:37)
[2018-06-15] MEDS: OXYBUTYNIN CHLORIDE 5 MG TAB PO SCH (21:22)
[2018-06-15] MEDS: MELATONIN 5 MG TABLET PO SCH (21:22)
[2018-06-16] VITALS: BP 134/63
[2018-06-16] MEDS: HYDROCODONE/APAP 10MG-325MG TAB PO PRN ×6 (02:44→22:03)
[2018-06-16 04:00] VITALS: BP 147/68
[2018-06-16] MEDS: ENOXAPARIN SODIUM INJ 100 MG/ML SYR SC SCH (04:44)
[2018-06-16 06:35] LABS: INR 3.28; PROTHROMBIN TIME 31.4 seconds (11.9-14.5)
[2018-06-16 08:00] VITALS: BP 120/73
[2018-06-16] MEDS: METOPROLOL TARTRATE 25 MG TAB PO SCH (09:31)
[2018-06-16] MEDS: OXYBUTYNIN CHLORIDE 5 MG TAB PO SCH ×2 (09:31→16:47)
[2018-06-16] MEDS: FUROSEMIDE 40 MG TAB PO SCH (09:31)
[2018-06-16 12:00] VITALS: BP 107/65
--- NOTE | 2018-06-16 14:51 | Progress Note ---
DATE: June 16, 2018 The patient is doing well, denying any complaints of chest pain, shortness of breath, possible transfer to [facility]. Denies any complaints of nausea, vomiting. OBJECTIVE VITAL SIGNS: Temperature 97, pulse 76, blood pressure 107/65, respiratory rate 18, O2 sat 93%. CHEST: Clear to auscultation bilaterally. EXTREMITIES: Lower extremity edema. Left upper extremity edema is much better. ABDOMEN: Soft, nontender. LABORATORY DATA: White count of 16,000, hemoglobin 8.5, platelets 429,000. Chemistry is within normal limits. ASSESSMENT 1. Bladder cancer. 2. History of prostate cancer. 3. Hematuria. 4. Hemorrhagic cystitis. 5. Left upper extremity thrombus. PLAN: Will be transferred to [facility] soon for further care. Continue current treatment. Respiratory status is stable. Job#: [id number] [facility]
[2018-06-16 16:00] VITALS: BP 128/71
[2018-06-16 20:00] VITALS: BP 104/69
[2018-06-16] MEDS ORDERED: ALPRAZOLAM 0.25 MG TAB PO ONE (20:00)
[2018-06-16] MEDS: MELATONIN 5 MG TABLET PO SCH (20:48)
[2018-06-17] VITALS: BP 158/72
[2018-06-17] MEDS: HYDROCODONE/APAP 10MG-325MG TAB PO PRN ×3 (02:07→10:11)
[2018-06-17 04:00] VITALS: BP 128/63
[2018-06-17 05:31] LABS: INR 3.64
[2018-06-17 07:20] VITALS: BP 132/72
[2018-06-17 07:50] VITALS: BP 132/72
[2018-06-17] MEDS: METOPROLOL TARTRATE 25 MG TAB PO SCH (09:03)
[2018-06-17] MEDS: FUROSEMIDE 40 MG TAB PO SCH (09:03)
[2018-06-17] MEDS: OXYBUTYNIN CHLORIDE 5 MG TAB PO SCH (09:03)
[2018-06-17] MEDS ORDERED: FUROSEMIDE40 MG PO (09:42)
[2018-06-17] MEDS ORDERED: LACTULOSE20 GM/30 M PO (09:42)
[2018-06-17] MEDS ORDERED: MELATONIN5 M2 PO (09:42)
[2018-06-17] MEDS ORDERED: OXYBUTYNIN CHLOR5 MG PO (09:42)
[2018-06-17 11:14] VITALS: BP 141/67
--- NOTE | 2018-06-17 12:17 | Consultation ---
DATE OF CONSULTATION: June 12, 2018 CONSULTATION TO: Dr. Bass Mr. Antunez is a 67-year-old white male who was referred to me for evaluation of left upper extremity deep vein thrombosis. HISTORY OF PAST ILLNESSES 1. History of prostate cancer treated with radiation. 2. History of bladder cancer. 3. History of ATN, recovering. 4. History of coronary artery disease with CABP. 5. History of bilateral ureterolithiasis. 6. History of bilateral double-J stents. SOCIAL HISTORY: History of smoking. FAMILY HISTORY: Noncontributory. ALLERGIES REPORTED: NONE. MEDICATIONS AT THIS TIME 1. Melatonin. 2. Lactulose. 3. Tylenol. 4. Metoprolol. 5. Hydromorphone. 6. Lovenox. REVIEW OF SYSTEMS HEENT: Normal. CARDIAC: Normal. RESPIRATORY: Normal. GI: Normal. : History of cancer of the prostate. History of cancer of the bladder. MUSCULOSKELETAL: Left upper extremity deep vein thrombosis. NEUROENDOCRINE: Essentially normal. PHYSICAL EXAMINATION GENERAL: A rather moderately built male. Anemic. No palpable adenopathy. HEART: CABP scar is seen. ABDOMEN: Obese. RECTAL: Exam deferred. CENTRAL NERVOUS SYSTEM: Essentially normal. EXTREMITIES: Swelling of the left upper extremity. LABORATORY DATA: Hemoglobin of 8.5, hematocrit around 27.5, white count 16,100, platelets of 129,000. INR 1.39. Bilirubin 0.4, SGOT 19, SGPT 19, alkaline phosphatase 135. Sodium of 137, potassium 3.6, chloride 74, CO2 22, BUN 25, creatinine 0.9, glucose 94. IMPRESSION 1. History of prostate cancer. 2. History of bladder cancer. 3. Acute tubular necrosis, with which he has recovered. 4. Hypotension on admission, with which he has recovered. 5. Coronary artery disease with coronary artery bypass. 6. Bilateral ureterolithiasis. 7. Bilateral double-J stent. 8. Blood cultures with Staphylococcus epidermidis significant in an immunocompromised patient. 9. Anemia of chronic disease. 10. Hypoproteinemia. 11. Hypoalbuminemia. 12. Hypocalcemia. 13. Urinary tract infection. 14. Hematuria. 15. Leukocytosis. 16. Deep venous thrombosis of the left upper extremity. PLAN, COMMENTS AND SUGGESTIONS: Suggest heparin and Coumadin. I will confine myself only to the DVT as multiple consultants are taking care of multiple problems which he has. I have chosen Coumadin as the patient's INR can be neutralized either with fresh frozen plasma and/or vitamin K as opposed to the other non-vitamin K medications for anticoagulation, as Praxbind is the only neutralizing agent available for Pradaxa. APCC is not available most of the times for other anticoagulants. I discussed this with Dr. Bass in detail. Because of hypoalbuminemia, I suspect that he has cirrhosis of liver. 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 I clinically suspect he has cirrhosis as he has spider angioma over the chest and, hence, will be very sensitive to Coumadin. The patient's INR today is 3.6. Coumadin should be withheld for 3 days. I have written a prescription for Coumadin 1 mg a day. I certainly hope that the patient will make an appointment with me or Dr. Bass for INR. Otherwise, he is going to bleed. Hence, I have given him only 10 tablets of Coumadin. All the contraindications of Coumadin were discussed with him. The patient has been an established patient at [facility] for the prostate cancer for which he had radiation therapy. Dr. Bass had made an appointment for him to go to [facility] today. I have learned that the patient is not going to go to [facility]. For the prostate cancer, since the urologist is involved, I am not addressing this issue. I have confined myself only to the deep vein thrombosis which he has. I certainly hope that he will be a compliant patient with Coumadin; otherwise, he is going to bleed. The INR has to be kept between 2 and 3 only. Hence, the suggestion today is not to take the Coumadin for another 3 days and then start taking Coumadin 1 mg a day. Again, as I have dictated before, I have given him only 10 tablets of Coumadin. I certainly hope he is a compliant patient. Job#: [id number] cc:MD MIKHAIL GIORDANO MD MING JEANG, MD ZAHER SHEBIB, MD DAVID STEIN, MD NEHEMIA HAMPEL, MD
--- OUTSIDE RECORDS SUMMARY | 2018-07-31 23:44 | XMS REPORT | Continuity of Care Document ---
Author Author [facility] Organization 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 No 05/15/18 10:31am If yes, is advance directive on file with [facility]? No 03/04/18 4:23pm If not on file with [facility] will patient provide a copy? No 05/14/18 12:59pm Do you have a Directive to Physician? No 05/14/18 12:59pm Do you have a Medical Power of Technical Sales Director? No 05/14/18 12:59pm Do you have an out of hospital Do Not Resuscitate Order? No 05/14/18 12:59pm Do you have any special needs we should be aware of? No 05/14/18 12:59pm Do you have a support person here with you today? Yes 05/14/18 12:59pm Did patient receive Notice of Privacy Practices? Yes 05/14/18 12:59pm Did patient receive patient rights and responsibilities? Yes 05/14/18 12:59pm Problems Medical Problem Onset Date Status Acute renal failure Unknown Hematuria Unknown Hyperkalemia Unknown Urinary obstruction Unknown Medications Current Home Medications Medication Dose Units Route Directions Days Qty Instructions Start Date Acetaminophen With Codeine (Tylenol With Codeine #3 Tablet) 1 Each Tablet 300 Mg Oral As Needed Amiodarone Hcl 200 Mg Tablet 200 Mg Oral Daily@09 90 Days 90 Milligram 03/19/18 Cefuroxime Axetil (Cefuroxime) 500 Mg Tablet 500 Mg Oral Daily Metoprolol Tartrate 25 Mg Tablet 25 Mg Oral Daily Sodium Bicarbonate 650 Mg Tablet 650 Mg Oral Daily 30 Tab Past Home Medications Medication Directions Ordered Status Cetirizine Hcl (Zyrtec) 10 Mg Capsule, 10 Mg Oral Twice A Day Discontinued Cyanocobalamin (Vitamin B-12) 1,000 Mcg Tab, 1000 Mcg Oral Daily Discontinued Famotidine (Pepcid) 20 Mg Tablet, 20 Mg Oral Daily Discontinued Insulin Glargine (Lantus 3ML Pen) 100 Units/1 Ml Inj, 42 Subcutaneously Qevening Discontinued Insulin Lispro (Humalog) 100 Unit/1 Ml Cartridge, 30 Subcutaneously Three Times A Day Discontinued Losartan Potassium 25 Mg Tablet, 50 Mg Oral Daily Discontinued Meloxicam 7.5 Mg Tablet, 7.5 Mg Oral Daily Discontinued Metformin Hcl 500 Mg Tablet, 500 Mg Oral Daily Discontinued [place]-3 Fatty Acids/Fish Oil (Fish Oil 1,000 Mg Capsule) 1 Each Capsule, 2000 Mg Oral Daily Discontinued [place]-3 Fatty Acids/Fish Oil ([place] 3 Fish Oil Softgel) 1 Each Capsule.dr, 300 Mg Oral Daily Discontinued Pravastatin Sodium 20 Mg Tablet, 20 Mg Oral Bedtime Discontinued Rivaroxaban (Xarelto) 10 Mg Tablet, 20 Mg Oral Daily At 1700 03/19/18 Discontinued Sulfamethoxazole/Trimethoprim (Sulfamethoxazole-Tmp Ds Tablet) 1 Each Tablet, 1 Tab Oral As Directed Discontinued Family History Relationship Condition Age at [...] No 03/04/2018 4:23pm Not Applicable Not Applicable Hospital Discharge Instructions No hospital discharge instruction information available. Plan of Care Discharge Date 05/20/18 12:01pm Disposition HOME, SELF-CARE Instructions/Education Provided Xiong Catheter Care Prescriptions See Medication Section Additional Instructions/Education FOLLOW UP WITH MD SHEPHERD IN 5 DAYS CONTACT INFORMATION [address] [place] [address] F/U with PCP Dr Alisha Johnston. Functional Status Query Response Date Recorded Assistive Devices None May 15, 2018 12:29pm Ambulation Ability Minimum Assistance 1 person assist May 15, 2018 12:29pm Toileting Ability Independent May 19, 2018 6:21pm Allergies, Adverse Reactions, Alerts No known allergies. Immunizations No immunization information available. Vital Signs Acute Vital Signs Vital Response Date/Time Temperature (Fahrenheit) 96.4 degrees F (97.6 - 99.5) 05/20/2018 8:40am Pulse Pulse Rate (adult) 80 bpm (60 - 90) 05/20/2018 8:40am Respiratory Rate 20 bpm (12 - 24) 05/20/2018 8:40am Blood Pressure 126/69 mm Hg 05/20/2018 8:40am Height 6 ft 0 in 05/15/2018 10:31am Weight 215 lb 05/15/2018 10:31am Body Mass Index 29.2 kg/m^2 05/15/2018 10:31am Results Laboratory Results Test Name Result Units Flags Reference Collection Date/Time Result Date/ Time Comments Basophils % (Manual) 1 % 0-1.5 03/15/2018 5:50am 03/15/2018 7:36am Prothrombin Time 15.1 seconds H 11.9-14.5 03/09/2018 [...] CLEAR 03/03/2018 12:45pm 03/03/2018 1:38pm Urine Specific [place] 1.025 1.010-1.025 03/03/2018 12:45pm 2017 1:38pm Urine [...] /LPF NONE 03/03/2018 12:45pm 03/03/2018 1: 38pm Hemoglobin A1c Percent 5.7 % 4.0-7.0 03/04/2018 [...] 03/05/2018 12:35pm Elevated result called to TRISTA ARORYO at 1231 on 03/05/18 by Attila Vee. [...] with a HCV Nucleic Acid Amplification test ([id number]). [facility] [address] [address] Dir: Merrick Soliz MD For inquiries, the physician may contact Branch: [phone] Lab: [phone] White Blood Count 12.20 x10e3/uL H 4.8-10.8 05/18/2018 5:2017 5:34am Red Blood Count 3.84 x10e6/uL L 4.3-5.7 05/18/2018 5:05/18/2018 5: 34am Hemoglobin 10.4 g/dL L 14.0-18.0 05/18/2018 5:05/18/2018 5:34am Hematocrit 32.6 % L 38.2-49.6 05/18/2018 5:05/18/2018 5:34am Mean Corpuscular Volume 84.9 fL 81-99 05/18/2018 5:05/18/2018 5: 34am Mean Corpuscular Hemoglobin 27.1 pg L 28-32 05/18/2018 5:2017 5:34am Mean Corpuscular Hemoglobin Concent 31.9 g/dL 31-35 05/18/2018 5:05/18/2018 5:34am Red Cell Distribution Width 15.1 % H 11.7-14.4 05/18/2018 5:2017 5:34am Platelet Count 425 x10e3/uL H 140-360 05/18/2018 5:05/18/2018 5: 34am Neutrophils (%) (Auto) 86.1 % H 38.7-80.0 05/18/2018 5:05/18/2018 5 :34am Lymphocytes (%) (Auto) 7.9 % L 18.0-39.1 05/18/2018 5:05/18/2018 5: 34am Monocytes (%) (Auto) 4.9 % 4.4-11.3 05/18/2018 5:05/18/2018 5: 34am Eosinophils (%) (Auto) 0.0 % 0.0-6.0 05/18/2018 5:05/18/2018 5: 34am Basophils (%) (Auto) 0.2 % 0.0-1.0 05/18/2018 5:05/18/2018 5:34am IM GRANULOCYTES % 0.9 % 0.0-1.0 05/18/2018 5:05/18/2018 5:34am Neutrophils # (Auto) 10.5 H 2.1-6.9 05/18/2018 5:05/18/2018 5: 34am Lymphocytes # (Auto) 1.0 1.0-3.2 05/18/2018 5:05/18/2018 5:34am Monocytes # (Auto) 0.6 0.2-0.8 05/18/2018 5:05/18/2018 5:34am Eosinophils # (Auto) 0.0 0.0-0.4 05/18/2018 5:05/18/2018 5:34am Basophils # (Auto) 0.0 0.0-0.1 05/18/2018 5:05/18/2018 5:34am Absolute Immature Granulocyte (auto 0.11 x10e3/uL H 0-0.1 05/18/2018 5: 05/18/2018 5:34am Differential Total Cells Counted 100 05/16/2018 5:05/16/2018 8 :02am Neutrophils % (Manual) 71 % 40-74 05/16/2018 5:05/16/2018 8:02am Lymphocytes % (Manual) 12 % L 19-48 05/16/2018 5:05/16/2018 8:02am Monocytes % (Manual) 8 % 3.4-9.0 05/16/2018 5:05/16/2018 8:02am Eosinophils % (Manual) 7 % 0-7 05/16/2018 5:00am 05/16/2018 8:02am Metamyelocytes % 1 % H 0-0 05/16/2018 5:00am 05/16/2018 8:02am Reactive Lymphocytes 1 05/16/2018 5:00am 05/16/2018 8:02am Platelet Estimate SLIGHTLY INCREASED 05/16/2018 5:00am 05/16/2018 8 :02am Platelet Morphology Comment FEW LARGE 05/16/2018 5:00am 05/16/2018 8:02am Hypochromasia SLIGHT 05/16/2018 5:00am 05/16/2018 8:02am Poikilocytosis SLIGHT 05/16/2018 5:00am 05/16/2018 8:02am Anisocytosis SLIGHT 05/16/2018 5:00am 05/16/2018 8:02am Red Cell Morphology Comment NORMAL 05/16/2018 5:00am 05/16/2018 8: 02am Sodium Level 137 mmol/L 136-145 05/17/2018 5:00am 05/17/2018 6:02am Potassium Level 4.7 mmol/L 3.5-5.1 05/17/2018 5:00am 05/17/2018 6:02am Chloride Level 101 mmol/L 98-107 05/17/2018 5:00am 05/17/2018 6:02am Carbon Dioxide Level 25 mmol/L 22-29 05/17/2018 5:00am 05/17/2018 6: 02am Anion Gap 15.7 mmol/L 8-16 05/17/2018 5:00am 05/17/2018 6:02am Blood Urea Nitrogen 26 mg/dL 7-05/17/2018 5:00am 05/17/2018 6:02am Creatinine 1.52 mg/dL H 0.72-1.25 05/17/2018 5:00am 05/17/2018 6:02am BUN/Creatinine Ratio 17 6-25 05/17/2018 5:00am 05/17/2018 6:02am Estimat Glomerular Filtration Rate 46 ML/MIN L 60- 05/17/2018 5:00am 6:02am Ranges were taken from the National Kidney Disease Education Program and the National Kid[employer] Foundation literature. Reference ranges: 60 or greater: Normal 16-59 (for 3 consecutive months): Chronic kidney disease 15 or less: Kidney failure Glucose Level 105 mg/dL 74-118 05/17/2018 5:00am 05/17/2018 6:02am Calcium Level 9.0 mg/dL 8.4-10.2 05/17/2018 5:00am 05/17/2018 6:02am Bedside Glucose 122 mg/dL H 70-120 05/15/2018 7:07am 05/15/2018 7:15am Meter ID: [id number] Microbiology Results Procedure Source Organism/Result Collection Date/Time Result Date/Time Result Status Urine Culture Urine,Xiong Port PSEUDO FLUORESCENS/PUTIDA 05/15/2018 8:36am 05/18/2018 9:22am Final Blood Culture Blood NO GROWTH AFTER 72 HOURS 7:00pm 05/18/2018 7:14pm Preliminary Urine Culture Urine,Kidney STAPHYLOCOCCUS EPIDERMIDIS 05/17/2018 5:00pm 6:37am Final Procedures Procedure Status Date Provider(s) PERFORMANCE OF URINARY FILTRATION, <6 HRS/DAY Completed 03/03/18 TERESITA MOSS MD DESTRUCTION OF BLADDER, ENDO Completed 03/11/18 YUN SHEPHERD MD EXCISION OF BLADDER, ENDO, DIAGN Completed 03/11/18 YUN SHEPHERD MD INSERTION OF INFUSION DEV INTO R FEMOR VEIN, PERC APPROACH Completed KIERRA CRUZ MD INSERT OF TUNNEL VAD INTO CHEST SUBCU/FASCIA, PERC APPROACH Completed TERESITA BRICENO MD INSERTION OF INFUSION DEVICE INTO R ATRIUM, PERC APPROACH Completed 03/08/18 TERESITA BRICENO MD EXTIRPATION OF MATTER FROM BLADDER, ENDO Completed 03/11/18 YUN SHEPHERD MD FLUOROSCOPY OF BLADDER USING LOW OSMOLAR CONTRAST Completed 03/11/18 YUN SHEPHERD MD TRANSFUSE NONAUT RED BLOOD CELLS IN PERIPH VEIN, PERC Completed 03/11/18 DONTE REY MD DRAINAGE OF LEFT KIDNEY WITH DRAINAGE DEVICE, PERC APPROACH Completed DONTE JEFFERY MD REMOVAL OF TUNNEL VAD FROM TRUNK SUBCU/FASCIA, PERC APPROACH Completed JAYCE HENDRICKSON DO REMOVAL OF INFUSION DEVICE FROM HEART, PERCUTANEOUS APPROACH Completed JAYCE HENDRICKSON DO DRAINAGE OF RIGHT KIDNEY WITH DRAINAGE DEVICE, PERC APPROACH Completed DONTE JEFFERY MD INSERT TEMP BLADDER CATH Completed 03/29/18 MICHELLE HUBER MD Transurethral resection of bladder tumor (TURBT) with cystoscopy Active 05/15 YUN SHEPHERD MD Transurethral resection of bladder tumor (TURBT) with cystoscopy Completed YUN SHEPHERD MD Ultrasound, renal Active 01/16/18 YUN SHEPHERD MD X-ray of chest, two views Active 03/03/18 LORENZA MICHELDRO Jim CAREER TECHNICAL EDUCATION INSTRUCTOR Ultrasound, renal Active 03/03/18 NAWAF MICHEL CAREER TECHNICAL EDUCATION INSTRUCTOR CT of abdomen and pelvis without contrast Active 03/04/18 HAYLIE SHEPHERD MD X-ray of chest, two views Active 03/10/[address] of abdomen and pelvis without contrast Active 03/10/18 MICAELA RUSSO MD Computed tomography of chest without contrast Active 03/10/18 MICAELA RUSSO MD Echo guide for biopsy Active 03/13/18 HAYLIE SHEPHERD MD X-ray of chest, two views Active 05/15/18 ALCIRA MENDEZ MD Encounters Encounter Location Arrival/Admit Date Discharge/Depart Date Attending Provider Discharged Inpatient [facility] 05/15/18 8:26am 05/20/18 12:01pm ALCIRA MENDEZ MD Departed Emergency Room [facility] 03/29/18 9:11pm 12:12am MICHELLE HUBER MD Discharged Inpatient [facility] 03/03/18 11:07pm 3:32pm DONTE REY MD Registered Clinic [facility] 01/30/18 7:10am HAYLIE SHEPHERD MD Registered Clinic [facility] 01/16/18 7:27am YUN SHEPHERD MD
== END 2018-06-17 13:40 | disposition home health service (06) | DRG 871 ==
LOC: ER 10:45 → ERHOLD 14:27 → ICU 16:15 → MED/SURG3 06-07 17:29
PROVIDERS: ADMIT Internal Medicine; ATTEND Internal Medicine
PROC: 02HV33Z Insertion of Infusion Device into Superior Vena Cava, Percutaneous Approach (ICD-10-PCS; principal; 2018-06-04)
PROC: B5181ZA Fluoroscopy of Superior Vena Cava using Low Osmolar Contrast, Guidance (ICD-10-PCS; 2018-06-04)
DX: A41.9 Sepsis, unspecified organism (principal); N17.0 Acute kidney failure with tubular necrosis; I82.622 Acute embolism and thrombosis of deep veins of left upper extremity; N13.2 Hydronephrosis with renal and ureteral calculous obstruction; R65.20 Severe sepsis without septic shock; C67.9 Malignant neoplasm of bladder, unspecified; Z96.0 Presence of urogenital implants; I25.10 Atherosclerotic heart disease of native coronary artery without angina pectoris; Z95.1 Presence of aortocoronary bypass graft; I48.2 Chronic atrial fibrillation; Z79.01 Long term (current) use of anticoagulants; E78.5 Hyperlipidemia, unspecified; N13.9 Obstructive and reflux uropathy, unspecified; D63.8 Anemia in other chronic diseases classified elsewhere; Z79.899 Other long term (current) drug therapy; E83.51 Hypocalcemia; E88.09 Other disorders of plasma-protein metabolism, not elsewhere classified; E77.8 Other disorders of glycoprotein metabolism; K74.60 Unspecified cirrhosis of liver; K76.0 Fatty (change of) liver, not elsewhere classified; Z91.81 History of falling; C61 Malignant neoplasm of prostate; N30.91 Cystitis, unspecified with hematuria; I45.81 Long QT syndrome; I65.29 Occlusion and stenosis of unspecified carotid artery; I37.1 Nonrheumatic pulmonary valve insufficiency; R62.7 Adult failure to thrive; N20.0 Calculus of kidney
CPT/HCPCS: 36415; 36556; 71045; 74018; 74470; 76700; 76770; 76856; 76937; 80048; 80053; 80202; 81001; 82550; 82553; 82948; 83605; 83690; 83880; 84484; 85025; 85610; 85730; 87040; 87071; 87086; 87186; 87205; 93005; 93970; 96360; 96361; 96372; 97139; 99284; J1650; J2001; J2185; J3370; J3480; J7030; J7050; J7070; P9047